=== PATIENT | female | born 1940 | race Caucasian/White ===

== ENCOUNTER → 2024-01-03 16:40 | Outpatient (REF) | payer MEDICARE, OTHER, SELFPAY | LOC: CLAB 16:40 | PROVIDERS: ATTENDING PHYSICIAN Specialist | DX: N39.46 Mixed incontinence (principal) | CPT/HCPCS: 87077; 87086; 87186 ==

== ENCOUNTER → 2024-02-07 11:04 | Outpatient (REF) | payer MEDICARE, OTHER, SELFPAY ==
[2024-02-07 12:14] LABS: Urine Albumin Trace (Neg - Trace); Urine Bilirubin Negative (Negative); Urine Character Clear (Clear); Urine Color Yellow; Urine Glucose Negative (Negative); Urine Ketone Negative (Negative); Urine Leukocyte 1+ (Negative); Urine Nitrite Negative (Negative); Urine Occult Blood Negative (Negative); Urine Specific Gravity 1.015 (<1.030); Urine Urobilinogen Negative (Neg - 1+)
[2024-02-07 12:32] LABS: Urine Red Blood Cell 0-2 /HPF (0-2)
[2024-02-07 12:33] LABS: Urine White Cell 26-30 /HPF (0-5)
[2024-02-07 12:35] LABS: Urine Bacteria Moderate (Negative)
== END ==
LOC: REG 11:04
PROVIDERS: ATTENDING PHYSICIAN Specialist; FAMILY PHYSICIAN Family Medicine
DX: N39.0 Urinary tract infection, site not specified (principal)
CPT/HCPCS: 81003; 81015; 87077; 87086; 87186

== ENCOUNTER 2024-03-07 15:45 | Inpatient (IN) | payer MEDICARE, OTHER, SELFPAY ==
[2024-03-07 09:07] VITALS: BP 100/69
[2024-03-07 09:42] LABS: COVID-19 Antigen Negative (Negative)
--- NOTE | 2024-03-07 11:09 | ED.GENMED ---
History of Present Illness
General
Chief Complaint: Fever
Source: patient
Exam Limitations: none
Time Seen by Provider: 03/07/24 10:42
Travel History
Have you had any contact with someone who has COVID-19?: No
Do you have any symptoms of coronavirus? Fever > 100 degrees, chills, cough, shortness of breath, sore throat, loss of taste or smell, muscle aches, or headache?: No
History of Present Illness
History of Present Illness:
84-year-old female presents with generalized weakness and shaking chills. She noted she felt warm last evening. She notes increased urinary symptoms such as burning conceive. Today she developed rigors that lasted about 1/2-hour. She was
developing weakness as well. She notes a slight cough. She notes no nausea or vomiting. No other at this time
Past History
Past History
ED Past Medical History: Asthma, CAD and Other (Urinary incontinence)
ED Past Surgical History:
Social History
Tobacco: Non-smoker
Alcohol: Occasional
Drug: None
Personal:
Living: alone
Employment: Retired
Family History
Family History: Other
Phy Exam
Physical Exam
Physical Exam:
General: Well-appearing female no acute respiratory distress
HEENT: Normocephalic mucosa moist
Heart: Regular rate and rhythm no murmurs
Lungs: Clear to auscultation bilaterally no wheezing
Abdomen: Soft mildly tender to the left lower quadrant no guarding rebound normal bowel sounds
Extremities: No cyanosis or edema
Skin is warm no rash
Course
Orders/Labs/Results
Orders:
Orders
03/07/24 09:20
Influenza A+B Rapid Molecular Urgent
LOTTIE Source: Nasal Swab
Specimen Description:
03/07/24 09:21
COVID-19 Antigen Urgent
Source: Nasal Swab
03/07/24 10:55
CR Chest - 2 Views Urgent
Comment:
Reason For Exam: fever
03/07/24 10:57
CT Abd/pelvis W Iv Cont Urgent
Comment:
Reason For Exam: left lower abdominal pain, fever
03/07/24 11:49
Basic Metabolic Panel Urgent
Complete Blood Count/With Diff Urgent
03/07/24 12:23
Urinalysis Reflex To Culture Urgent
Date Specimen was Collected: 03/07/24
Time Specimen was Collected: 12:07
Urine Microscopic Reflex Cult Urgent
Urine Culture Urgent
LOTTIE Source: U
Specimen Description:
Date Specimen was Collected: 03/07/24
Time Specimen was Collected: 12:07
03/07/24 14:32
CefTRIAXone [Rocephin] 1,000 mg IV NOW STA
Abnormal Lab Results
03/07/24 03/07/24
11:49 12:23
WBC 13.6 H 10^3/uL
(4.8-10.8)
RBC 4.12 L 10^6/uL
(4.20-5.40)
Hct 35.4 L %
(37.0-47.0)
RDW 14.6 H %
(11.5-14.5)
MPV 12.0 H fL
(7.4-10.4)
Absolute Neuts (auto) 10.3 H 10^3/uL
(1.4-6.5)
Absolute Monos (auto) 1.6 H 10^3/uL
(0.1-0.6)
Neutrophils % 76.3 H %
(42.2-75.2)
Lymphocytes % 10.9 L %
(20.5-51.1)
Monocytes % 12.0 H %
(1.7-9.3)
BUN 20 H mg/dl
(7-17)
Glucose 146 H mg/dl
(70-99)
Ur Occult Blood Reflex 3+ A
(Negative)
Leukocyte Esterase Rfl 2+ A
(Negative)
Urine RBC 3-6 A /HPF
(0-2)
Urine WBC (Reflex) >100 A /HPF
(0-5)
Urine Bacteria (Reflex) Few A
(Negative)
03/07/24 11:49
03/07/24 11:49
Vital Signs
Initial and Last Documented VS:
Initial Vital Signs
Temp Pulse Resp BP Pulse Ox
99.6 F 79 18 100/69 96
03/07/24 09:07 03/07/24 09:07 03/07/24 09:07 03/07/24 09:07 03/07/24 09:07
Last Documented Vital Signs
Temp Pulse Resp BP Pulse Ox
99.6 F 62 16 131/56 97
03/07/24 12:07 03/07/24 12:07 03/07/24 12:07 03/07/24 12:07 03/07/24 12:07
MDM/Problems Addressed
Differential Diagnosis Includes:
Patient describes shaking chills and rigors at home with weakness. COVID and flu negative. Will continue workup with labs chest x-ray urinalysis. She is tender in the left lower abdomen. CT pending
*Critical Care Note
Total Time (30-74mins, 75-104mins- exclusive of procedures): Not Applicable
Update Note
Update Note:
Reviewed workup. Leukocytosis with a white count of 13.4. Urinalysis with greater than 100 white blood cells per hide for powered field with few bacteria. CT of abdomen demonstrates inflammatory changes of the right kidney and renal pelvis
without hydronephrosis. This would suggest possible infection. Patient was recently treated for UTI as an outpatient by the urologist. She has persistent symptoms. Will admit to hospital. Rocephin ordered
ED Attending Note
-
Portions of this chart may have been created with voice recognition software.� Occasional wrong word or��sound alike� substitutions may have occurred due to the inherent limitations of voice recognition software.
Discharge Plan
Departure
Patient Disposition: Admit
Date of Disposition: 03/07/24
Time of Disposition: 14:35
Admit to: Telemetry
Presentation/result/management discussed w/ accepting MD/DO: Hospitalist
Discharge Problem:
Acute UTI
Prescriptions:
No Action
amlodipine 2.5 MG tablet
2.5 mg PO DAILY
aspirin 81 MG tablet,delayed release (DR/EC)
81 mg PO HS
colesevelam [WelChol] 625 MG tablet
1,250 mg PO HS
losartan 25 MG tablet
25 mg PO HS
rosuvastatin [Crestor] 40 MG tablet
40 mg PO DAILY
polyethylene glycol 3350 17 GRAMS powder in packet
17 grams PO DAILYPRN PRN (Reason: constipation)
melatonin 3 MG tablet
3 mg PO HSPRN PRN (Reason: sleep)
nitroglycerin 0.4 MG tablet, sublingual
0.4 mg sublingual [id number] PRN (Reason: chest pain)
albuterol sulfate 1 PUFF HFA aerosol inhaler
1 puff inhalation R Q4HPRN PRN (Reason: sob)
vit C,O-Nj-exoxr-lutein-zeaxan [PreserVision AREDS-2] 1 EACH capsule
1 ea PO BID
meclizine 25 MG tablet
25 mg PO Q8H PRN (Reason: dizziness) Qty: 15 0RF
Eliquis 5 mg tablet
5 mg PO BID Qty: 60 0RF
Referrals:
Nancy Quach MD [Family Provider] -
Interventions
Interventions:
*Risk Screen - Suicide Last Done: 03/07/24 12:08
*General Assessment Last Done: 03/07/24 12:08
*Neglect/Abuse Screening Last Done: 03/07/24 12:08
ED- Fall Risk Assessment Last Done: 03/07/24 12:08
*ED COVID-19 Vaccine History Last Done: 03/07/24 09:07
ED- Neurological Assessment Last Done: 03/07/24 12:08
ED-Skin Assessment Last Done: 03/07/24 12:08
Discharge Date and Time
Print Language: INDONESIAN
[2024-03-07 11:58] LABS: % Basophils 0.4 % (0-2); % Eosinophils 0.1 % (0-6); % Immature Granulocytes 0.3 % (0-0.5); % Lymphocytes 10.9 % (20.5-51.1); % Neutrophils 76.3 % (42.2-75.2); Absolute Basophils 0.1 10^3/uL (0-0.2); Absolute Lymphocytes 1.5 10^3/uL (1.2-3.4); Absolute Monocytes 1.6 10^3/uL (0.1-0.6); Absolute Neutrophils 10.3 10^3/uL (1.4-6.5); Hematocrit 35.4 % (37.0-47.0); Hemoglobin 12.1 g/dL (12.0-16.0); Mean Corp Hgb Conc. 34.2 g/dL (33.0-37.0); Mean Corpuscular Hgb 29.4 pg (27.0-31.0); Mean Corpuscular Volume 85.9 fL (81.0-99.0); Nucleated Red Blood Cells % 0 %; Platelet Count 165 10^3/uL (130-400); Red Blood Cell Count 4.12 10^6/uL (4.20-5.40); Red Cell Dist. Width 14.6 % (11.5-14.5); White Blood Cell Count 13.6 10^3/uL (4.8-10.8)
[2024-03-07 12:07] VITALS: BP 131/56
[2024-03-07 12:19] LABS: Blood Urea Nitrogen 20 mg/dl (7-17); Calcium 9.5 mg/dl (8.4-10.2); Carbon Dioxide 24 mmol/L (22-30); Chloride 105 mmol/L (98-107); Glucose 146 mg/dl (70-99); Sodium 135 mmol/L (135-145); eGFR > 60.00
[2024-03-07 12:43] LABS: Urine Albumin Trace (Neg - Trace); Urine Bilirubin Negative (Negative); Urine Character Clear (Clear); Urine Color Yellow; Urine Glucose Negative (Negative); Urine Ketone Negative (Negative); Urine Leukocyte 2+ (Negative); Urine Nitrite Negative (Negative); Urine Occult Blood 3+ (Negative); Urine Urobilinogen Negative (Neg - 1+)
[2024-03-07 13:16] LABS: Urine Bacteria Few (Negative); Urine Squamous Cell 0-2 /LPF (Few); Urine White Cell >100 /HPF (0-5)
[2024-03-07] MEDS: ROCEPHIN 1000 MG IV (14:48)
--- NOTE | 2024-03-07 15:18 | HPS.HSE ---
Family Physician
-
Family Physician: Nancy Quach
Chief Complaint
-
Rigors and Dysuria
History of Present Illness
Patient is an 84 y/o female with a past medical history of hypertension, hyperlipidemia, coronary artery disease (status post coronary artery bypass graft), paroxysmal atrial fibrillation, chronic urinary incontinence with recent urinary tract
infection who presents for dysuria for the past 2 months and rigors that began today. She admits to a recent urinary tract infection about 2 months ago that was treated with Macrobid (symptoms improved but returned) and then cefdinir after which her
symptoms never fully resolved. She admits to sweats last night and reports an episode of rigors and dry heavies this morning that was so severe that she could not get out of bed to take her temperature. She is unsure if she is experiencing urinary
frequency as she typically experiences chronic urinary incontinence. She denies abdominal pain and vomiting.
Medical History
Past Medical History
Past Medical History: Reports Other
Additional Past Medical History:
Coronary Artery Disease s/p CABG
Paroxysmal Atrial Fibrillation
Essential Hypertension
Hyperlipidemia
Degenerative Disc Disease
Macular Degeneration
Past Surgical History: Reports Other
Additional Past Surgical History:
CABG
Hysterectomy
Appendectomy
Right Carpal Tunnel
Bilateral Trigger Finger
Social History
Tobacco: Non-smoker
Alcohol: None
Family History
Family History: Not pertinent
Allergies / Home Medications
Allergies reflects when Allergies were last updated in [facility].
Home Medications with original date entered in [facility]
Allergy/Medication List:
Allergies
Allergy/AdvReac Type Severity Reaction Status Date / Time
ezetimibe [From Zetia] Allergy Unknown Verified 03/07/24 09:09
penicillin G Allergy Hives- Verified 03/07/24 14:46
tolerated
ceftriaxone
in 2017
Wyubgfi-TYX-LiD Reductase Allergy drowsiness Verified 03/07/24 09:09
Inhibitor
[Ngxvkht-Dli-Ecw Reductase
Inhibitor]
venom-honey bee Allergy SWELLING Verified 03/07/24 09:09
THROAT
vitamin E (d-alpha Allergy Unknown Verified 03/07/24 09:09
tocopherol)
Home Medications
amlodipine 2.5 mg tablet 2.5 mg PO DAILY Blood Pressure 06/13/17
aspirin 81 mg tablet,delayed release 81 mg PO HS Blood Clot Prevention/Tx 06/13/17
losartan 25 mg tablet 25 mg PO HS Blood Pressure 06/13/17
rosuvastatin 40 mg tablet (Crestor) 40 mg PO DAILY High Cholesterol 06/13/17
albuterol sulfate 90 mcg/actuation aerosol inhaler 1 puff inhalation R Q4HPRN PRN sob 07/24/19
melatonin 3 mg tablet 3 mg PO HSPRN PRN sleep 07/24/19
nitroglycerin 0.4 mg sublingual tablet 0.4 mg sublingual [id number] PRN chest pain 07/24/19
polyethylene glycol 3350 17 gram oral powder packet 17 grams PO DAILYPRN PRN constipation 07/24/19
vit C 250 mg-vit E 90 mg-zinc 40 mg-copper 1 gm-ovnjhk-vwhcso capsule (PreserVision AREDS-2) 1 ea PO BID Supplement 07/24/19
apixaban 5 mg tablet (Eliquis) 5 mg PO BID Blood Clot Prevention/Tx 03/07/24
metoprolol succinate 25 mg tablet,extended release 24 hr 12.5 mg PO Daily High blood 03/07/24
omega-3 acid ethyl esters 1 gram capsule (Lovaza) 1 cap PO BID High Cholesterol 03/07/24
Review of Systems
-
A 12 point ROS was completed and negative except as noted: Yes
Constitutional: Reports Fever and Chills
Respiratory: Denies Cough or Trouble Breathing
Abdomen/GI: Reports Abdominal Pain and Nausea
Physical Exam
Vital Signs
Vital Signs
Temp Pulse Resp BP Pulse Ox
99.6 F 62 16 131/56 97
03/07/24 12:07 03/07/24 12:07 03/07/24 12:07 03/07/24 12:07 03/07/24 12:07
Physical Exam
General: Comfortable, Conversant and Chills
HEENT: Moist mucous membranes and Atraumatic
Respiratory: Clear and Non Labored Respirations
Cardiac: S1/S2 and Regular Rhythm
GI: Tender (Mild left lower quadrant without rebound or guarding)
Genito-urinary: Costovertebral angle tend (Right)
Musculoskeletal: No Clubbing, No Cyanosis and No Edema
Skin: Warm and Dry
Neuro: Awake, Alert, Oriented and Nonfocal/grossly intact
Psych: Calm
Laboratory Results
-
03/07/24 11:49
03/07/24 11:49
Laboratory Results
Total Bilirubin Cancelled 03/07/24 11:49
AST Cancelled 03/07/24 11:49
ALT Cancelled 03/07/24 11:49
Alkaline Phosphatase Cancelled 03/07/24 11:49
Data Reviewed
-
CT Scan: Report Reviewed by me
Lab Data: Labs Reviewed by me
Impression/Plan
-
Right Pyelonephritis
-Continue Rocephin
-Continue IVFs
-Await urine and blood cultures
Coronary Artery Disease s/p CABG
-Continue aspirin
Paroxysmal Atrial Fibrillation
-Continue Eliquis for anticoagulation
-Continue metoprolol for rate/rhythm control
Essential Hypertension
-Continue amlodipine and losartan with hold parameters
Dyslipidemia
-Continue Crestor
DVT proph: Eliquis
Code Status: DNR
--- NOTE | 2024-03-07 15:20 | W.PN.UPDATE ---
Addendum entered and electronically signed by Rosa Christian MD 03/07/24 18:01:
patient with complaint of chest pain. she is very tender to touch left upper chest below arm pit and flinches on exam. suspect muscle sprain from prior episode of tremors or vomiting. will order heat pack.
Original Note:
Update Note
Progress Note Update
This update note serves as an addendum to H&P written by Fara Gomez
I saw and examined the patient.
The COMMERCIAL COLLECTIONS DRIVER's note was reviewed and I agree with the note.
Comment:
Ms. Shaylee Walker is a 84 yo woman with hx CAD, HTN, HLD, BPPV presents to the ER with right flank pain and feeling unwell. She was recently treated for UTI as outpatient x 2, initially with Macrobid followed by Cefdinir. Triage vitals stable.
Labs with WBC 13.6, Hg 12.1, Na 135, Cr 0.9, Glucose 146. On exam she appears uncomfortable, mild tremors with rising T (100), lung clear, + CVA tenderness on right.
CT A/P:
IMPRESSION:
1. Inflammatory changes of the right kidney and right renal pelvis as above without hydronephrosis. There is right renal nonobstructive calculus. No ureteral or bladder calculi identified. Differential considerations include infection and recently
passed calculus.
2. No specific findings to explain left-sided pain.
3. Simple fluid attenuation lesion within the pelvis measuring up to 8.7 cm in diameter, larger as compared with prior study. Could be related to left adnexal cysts versus postoperative lymphocele related to prior hysterectomy. As warranted, could
be further evaluated with follow-up pelvic ultrasound. Small interval increase in size compared to 2017 suggests that this has a benign etiology.
4. Mild hepatic fatty infiltration.
5. Cholelithiasis.
Sepsis 2/2 Pyelonephritis
-obtain lactate, blood cultures now
-IV Ceftriaxone
-admit to med/surg
-IVF bolus now and running IVF
-monitor fever curve, WBC
Atrial fibrillation, paroxysmal
-continue PHARMACY BUYER metoprolol, Eliquis
Essential HTN
-resume with hold parameters
DVT PPx Eliquis
[2024-03-07] MEDS: ZOFRAN 4 MG IV (16:06)
[2024-03-07] MEDS: NSS 1000 IV ×2 (16:07→18:44)
[2024-03-07 16:38] LABS: Lactic Acid 2.2 mmol/L (0.7-2.0)
[2024-03-07 17:36] VITALS: BP 129/44
[2024-03-07] MEDS: PEPCID 20 MG IV (17:54)
[2024-03-07] MEDS: NSS (PRESERVATIVE FREE) 8 ML IV (17:55)
[2024-03-07 17:57] LABS: ALT (SGPT) 15 U/L (0-35); AST (SGOT) 26 U/L (14-36); Albumin 3.9 g/dl (3.5-5.0); Alkaline Phosphatase 82 U/L (38-126); Direct Bilirubin 0.3 mg/dl (0.0-0.4); Magnesium 1.8 mg/dl (1.6-2.3); Potassium 4.5 mmol/L (3.5-5.1); Total Bilirubin 0.9 mg/dl (0.2-1.3); Total Protein 6.7 g/dl (6.3-8.2)
[2024-03-07 17:58] LABS: Lactic Acid 1.5 mmol/L (0.7-2.0)
[2024-03-07 18:39] VITALS: BP 123/53
[2024-03-07 18:40] VITALS: BMI 34.4
[2024-03-07] MEDS: TYLENOL 650 MG PO (19:52)
[2024-03-07] MEDS: ELIQUIS 5 MG PO (19:52)
[2024-03-07] MEDS: OCUVITE SOFTGEL 1 CAP PO (19:52)
[2024-03-07 19:53] VITALS: BP 125/50
--- NOTE | 2024-03-07 20:00 | PTCARENOTE ---
Received pt from ED, unable to bear weight due to being fatigued. AAOx3, no complaints of pain. IVF as ordered.
[2024-03-07] MEDS: MELATONIN 3 MG PO (22:00)
[2024-03-07] MEDS: COZAAR PO (22:00)
[2024-03-07] MEDS: ASPIR LOW (ENTERIC COATED) 81 MG PO (22:00)
[2024-03-07 23:55] VITALS: BP 116/52
[2024-03-08] VITALS (8 sets, daily range): BP systolic 118–127; BP diastolic 46–57; PULSE 57; BMI 34.2
[2024-03-08] MEDS: NSS 1000 IV (05:05)
[2024-03-08 07:00] LABS: Blood Urea Nitrogen 23 mg/dl (7-17); Calcium 8.8 mg/dl (8.4-10.2); Carbon Dioxide 20 mmol/L (22-30); Chloride 110 mmol/L (98-107); Estimated Creatinine Clearance 44 ml/min; Glucose 108 mg/dl (70-99); Potassium 4.5 mmol/L (3.5-5.1); Sodium 138 mmol/L (135-145); eGFR 54.87
[2024-03-08 07:56] LABS: Hemoglobin 10.9 g/dL (12.0-16.0); Mean Corp Hgb Conc. 34.1 g/dL (33.0-37.0); Mean Corpuscular Hgb 29.1 pg (27.0-31.0); Mean Corpuscular Volume 85.3 fL (81.0-99.0); Mean Platelet Volume 12.1 fL (7.4-10.4); Platelet Count 143 10^3/uL (130-400); Red Blood Cell Count 3.75 10^6/uL (4.20-5.40); White Blood Cell Count 12.9 10^3/uL (4.8-10.8)
[2024-03-08] MEDS: CRESTOR 40 MG PO (09:37)
[2024-03-08] MEDS: ELIQUIS 5 MG PO ×2 (09:38→20:34)
[2024-03-08] MEDS: OCUVITE SOFTGEL 1 CAP PO ×2 (09:38→20:34)
[2024-03-08] MEDS: NORVASC 2.5 MG PO (09:38)
[2024-03-08] MEDS: TYLENOL 650 MG PO ×2 (10:03→17:35)
--- NOTE | 2024-03-08 10:43 | W.PN.HOSP.TC ---
Today's Communication/Plan
-
see plan
Assessment / Plan
Assessment / Plan
Ms. Shaylee Walker is a 84 yo woman with hx CAD, HTN, HLD, BPPV presents to the ER with right flank pain and feeling unwell. She was recently treated for UTI as outpatient x 2, initially with Macrobid followed by Cefdinir. Triage vitals stable.
Labs with WBC 13.6, Hg 12.1, Na 135, Cr 0.9, Glucose 146. On exam she appears uncomfortable, mild tremors with rising T (100), lung clear, + CVA tenderness on right.
CT A/P:
IMPRESSION:
1. Inflammatory changes of the right kidney and right renal pelvis as above without hydronephrosis. There is right renal nonobstructive calculus. No ureteral or bladder calculi identified. Differential considerations include infection and recently
passed calculus.
2. No specific findings to explain left-sided pain.
3. Simple fluid attenuation lesion within the pelvis measuring up to 8.7 cm in diameter, larger as compared with prior study. Could be related to left adnexal cysts versus postoperative lymphocele related to prior hysterectomy. As warranted, could
be further evaluated with follow-up pelvic ultrasound. Small interval increase in size compared to 2017 suggests that this has a benign etiology.
4. Mild hepatic fatty infiltration.
5. Cholelithiasis.
Sepsis 2/2 Pyelonephritis
Severe sepsis with lactate 2.2
-IV Ceftriaxone q 24 (day 2)
-F/U urine cultures
-IVF - OK to stop after bag runs out
-monitor WBC/fever curve
weakness in setting of sepsis
PT/OT
chest pain MSK
k-pad ordered
Atrial fibrillation, paroxysmal
-continue [employer] metoprolol, Eliquis
Coronary Artery Disease s/p CABG
-Continue aspirin
Essential Hypertension
-Continue amlodipine and losartan with hold parameters
Dyslipidemia
-Continue Crestor
DVT proph: Eliquis
Code Status: patient now wants to be full code
DVT PPx Eliquis
Anticipated Discharge: 24 - 48 hours
Subjective/Interval History
-
Date of Service: March 08, 2024
feeling better
more conversant
pain below left shoulder radiates to neck, better with heat pack not exacerbated by PT
Objective Data
-
Labs:
Laboratory Results
03/08/24 03/08/24
06:25 07:29
WBC Cancelled 12.9 H
Hgb Cancelled 10.9 L
Hct Cancelled 32.0 L
Plt Count Cancelled 143
Sodium 138
Potassium 4.5
Chloride 110 H
Carbon Dioxide 20 L
BUN 23 H
Creatinine 1.0
Glucose 108 H
Calcium 8.8
Vital Signs:
Vital Signs
Temp Pulse Resp BP Pulse Ox
97.9 F 60 18 119/46 95
03/08/24 08:15 03/08/24 09:38 03/08/24 08:15 03/08/24 09:38 03/08/24 08:15
I&O
03/07/24 03/08/24 03/09/24
06:59 06:59 06:59
Intake Total 480 / 480
Output Total 500 / 500
Balance -20 / -20
Review of Systems
-
History Source: Patient
All other systems: Reviewed and negative
Physical Exam
-
General: No Apparent Distress and Conversant
HEENT: PERRLA
Respiratory: Clear to Auscultation; Negative Wheezes
Cardiac: Regular Rhythm and S1/S2
GI: Soft and Nontender
Musculoskeletal: No Edema
Skin: Warm and Dry; Negative Rash
Neuro: AO x 3
Psych: Calm
Data Reviewed
-
Diagnostic Radiology: Report Reviewed by me
Labs: Labs Reviewed by me
--- NOTE | 2024-03-08 11:25 | PTCARENOTE ---
Patient rescinded DNR status. Patient now full code.
--- NOTE | 2024-03-08 12:51 | W.PN.UPDATE ---
Update Note
Progress Note Update
1/ blood cx gram + cocci in clusters. likely contaminant but will repeat blood cx then order one dose IV Vanc - stop if speciation confirms contamination.
--- NOTE | 2024-03-08 12:59 | PHA.VAN.IN ---
Assessment
- Assessment
Renal Function: Appears similar to baseline
Renal Function may be Overestimated due to: age
Concomitant Antimicrobials: ceftriaxone
AUC Dosing Plan
- Dosing Variables
Dosing Weight (kg): 90.4
Dosing CrCl (ml/min): 44
Vd coefficient (L/kg): 0.7
- Empiric Dosing
Initial / Loading Dose: 1250mg
Maintenance Regimen: 1250mg q24h
Estimated AUC (mcg*h/mL): 498
Estimated Peak (mcg*h/mL): 31.6
Estimated Trough (mcg/ml): 12.6
Estimated Half Life (H): 16.9
- Monitoring
No levels ordered at this time: consider at steady state
Pharmacokinetics Vancomycin I
- -
Patient Age: 84
Patient Sex: Female
Vancomycin Day #: 1
Indication: Bacteremia
Requesting Provider: Dr. Christian
Pertinent Antimicrobial Allergies:
pcns=hives, tolerated ceftriaxone
Height / Weight:
Height 5 ft 4 in
Actual Weight 90.407 kg
IBW in k.7
Adjusted BW in k
- Vital Signs / Lab Results
Temp Pulse Resp BP Pulse Ox
97.9 F 63 18 121/50 97
03/08/24 11:58 03/08/24 11:58 03/08/24 11:58 03/08/24 11:58 03/08/24 12:04
Lab Results - Hematology
03/07/24 03/08/24 03/08/24
11:49 06:25 07:29
WBC 13.6 H Cancelled 12.9 H
Lab Results - Chemistry
03/07/24 03/07/24 03/07/24
11:49 16:17 17:24
BUN 20 H
Creatinine 0.9
Estimated Creat Clear
Albumin Cancelled Cancelled 3.9
03/08/24
06:25
BUN 23 H
Creatinine 1.0
Estimated Creat Clear 44
Albumin
03/07/24 03/07/24 03/08/24
16:17 17:24 00:00
Lactic Acid 2.2 H 1.5 Cancelled
Lab Results - Urine
03/07/24
12:23
Urine Nitrite (Reflex) Negative
Leukocyte Esterase Rfl 2+ A
Urine WBC (Reflex) >100 A
Ur Squamous Epith Cells 0-2
Urine Bacteria (Reflex) Few A
Microbiology Results
03/07/24 16:17 Blood Culture - Preliminary
Blood/Venous Positive culture in progress
Gram Stain - Preliminary
03/07/24 12:23 Urine Culture - Preliminary
Urine Escherichia coli
03/07/24 09:20 Influenza Types A & B (TAMAR) - Final
Nasal Swab Negative for Influenza A & B, NAAT
Negative results must be combined with clinical observations
and patient history.
Nucleic Acid Amplification test (NAAT)performed on the
[email or web address] platform.
[2024-03-08] MEDS: STERILE WATER FOR INJECTION 10 ML IV (13:13)
[2024-03-08] MEDS: VANCOCIN 275 MG IV (13:13)
[2024-03-08] MEDS: ROCEPHIN 1000 MG IV (13:13)
--- NOTE | 2024-03-08 14:25 | PTCARENOTE ---
Patient with preliminary positive blood cultures. Dr. Christian notified. Patient given stat dose of Vancomycin as ordered. Afebrile.
--- NOTE | 2024-03-08 15:52 | CM ---
Alert awake oriented patient who lives with his son Lizandro who lives in a 3 steps to enter and bed/bath room are in there vibration .Assisted in all parts of life.Independent with all activities of daily living.He was offered VN he declined need.
No VN hx / No SNF history
Pharmacy [facility]
PCP DR Baldwin
PLAN Home Declined VN
[2024-03-08] MEDS: TOPROL XL 12.5 MG PO (17:30)
[2024-03-08] MEDS: NSS IV (17:57)
[2024-03-08] MEDS: ASPIR LOW (ENTERIC COATED) 81 MG PO (22:06)
[2024-03-08] MEDS: COZAAR 25 MG PO (22:11)
[2024-03-09] VITALS (7 sets, daily range): BP systolic 121–147; BP diastolic 50–98; BMI 34.9
--- NOTE | 2024-03-09 05:00 | PTCARENOTE ---
Pt insisted to have purewick in placed due to being incontinent. RN educated pt she does not meet protocol requirements and can worsen infection. Pt stated she feels anxious and wants a medication to help her anxiety due to the perwick being
removed. RN provided emotional support and educated pt on how to use the call lackey when she needs to be changed and reinforced incontinence protocol. Pt is resting comfortably w/ call lackey within reach
[2024-03-09] MEDS: VANCOCIN 275 MG IV (05:45)
[2024-03-09 07:01] LABS: % Basophils 0.7 % (0-2); % Eosinophils 2.4 % (0-6); % Immature Granulocytes 1.7 % (0-0.5); % Lymphocytes 17.1 % (20.5-51.1); % Monocytes 12.5 % (1.7-9.3); % Neutrophils 65.6 % (42.2-75.2); Absolute Basophils 0.1 10^3/uL (0-0.2); Absolute Eosinophils 0.2 10^3/uL (0-0.7); Absolute Immature Granulocytes 0.2 10^3/uL (0-0.05); Absolute Lymphocytes 1.6 10^3/uL (1.2-3.4); Absolute Monocytes 1.2 10^3/uL (0.1-0.6); Absolute Neutrophils 6.3 10^3/uL (1.4-6.5); Hematocrit 32.2 % (37.0-47.0); Hemoglobin 10.8 g/dL (12.0-16.0); Mean Corp Hgb Conc. 33.5 g/dL (33.0-37.0); Mean Corpuscular Hgb 29.3 pg (27.0-31.0); Mean Corpuscular Volume 87.5 fL (81.0-99.0); Mean Platelet Volume 12.4 fL (7.4-10.4); Nucleated Red Blood Cells % 0 %; Platelet Count 146 10^3/uL (130-400); Red Blood Cell Count 3.68 10^6/uL (4.20-5.40); Red Cell Dist. Width 14.7 % (11.5-14.5); White Blood Cell Count 9.5 10^3/uL (4.8-10.8)
[2024-03-09 07:31] LABS: Blood Urea Nitrogen 17 mg/dl (7-17); Calcium 8.5 mg/dl (8.4-10.2); Carbon Dioxide 22 mmol/L (22-30); Chloride 108 mmol/L (98-107); Estimated Creatinine Clearance 49 ml/min; Glucose 113 mg/dl (70-99); Potassium 4.2 mmol/L (3.5-5.1); Sodium 133 mmol/L (135-145); eGFR > 60.00
[2024-03-09] MEDS: CRESTOR 40 MG PO (08:59)
[2024-03-09] MEDS: ELIQUIS 5 MG PO ×2 (08:59→20:38)
[2024-03-09] MEDS: NORVASC 2.5 MG PO (08:59)
[2024-03-09] MEDS: OCUVITE SOFTGEL 1 CAP PO ×2 (08:59→20:38)
--- NOTE | 2024-03-09 09:25 | PHA.VAN.FU ---
Vancomycin Assessment / Plan
- Assessment
Renal Function: Stable
WBC's are: Trending Down
In the past 24 hrs, patient has been: Afebrile
Concomitant Antimicrobials: CEFTRIAXONE
- Dosing Plan
Continue: 1250MG Q24H
- Monitoring Plan
Peak Level: 03/11 @0900
Trough Level: 03/12 @0530
- Follow Up
Pharmacy will continue to follow.
Vancomycin Follow UP
- -
Patient Age: 84
Patient Sex: Female
Vancomycin Day #: 2
Indication: Bacteremia
Requesting Provider: Dr. Christian
Pertinent Antimicrobial Allergies:
pcns=hives, tolerated ceftriaxone
Height / Weight:
Height 5 ft 4 in
Actual Weight 92.079 kg
IBW in k.7
Adjusted BW in k
- Vital Signs / Lab Results
Temp Pulse Resp BP Pulse Ox
98.6 F 65 18 139/56 92
03/09/24 07:25 03/09/24 08:59 03/09/24 07:25 03/09/24 08:59 03/09/24 07:25
Lab Results - Hematology
03/07/24 03/08/24 03/08/24
11:49 06:25 07:29
WBC 13.6 H Cancelled 12.9 H
03/09/24
05:33
WBC 9.5
Lab Results - Chemistry
03/07/24 03/07/24 03/07/24
11:49 16:17 17:24
BUN 20 H
Creatinine 0.9
Estimated Creat Clear
Albumin Cancelled Cancelled 3.9
03/08/24 03/09/24
06:25 05:33
BUN 23 H 17
Creatinine 1.0 0.9
Estimated Creat Clear 44 49
Albumin
03/07/24 03/07/24 03/08/24
16 17 00:00
Lactic Acid 2.2 H 1.5 Cancelled
Lab Results - Urine
03/07/24
12:23
Urine Nitrite (Reflex) Negative
Leukocyte Esterase Rfl 2+ A
Ur Squamous Epith Cells 0-2
Microbiology Results
03/07/24 12:23 Urine Culture - Final
Urine Escherichia coli
03/07/24 16:17 Blood Culture - Preliminary
Blood/Venous Coagulase neg. staphylococcus
Additional testing on request
Gram Stain - Preliminary
03/07/24 16:17 Blood Culture - Preliminary
Blood/Venous No Growth in 24 hours- Final report to follow
03/07/24 09:20 Influenza Types A & B (TAMAR) - Final
Nasal Swab Negative for Influenza A & B, NAAT
Negative results must be combined with clinical observations
and patient history.
Nucleic Acid Amplification test (NAAT)performed on the
[employer] platform.
--- NOTE | 2024-03-09 10:52 | W.PN.HOSP.TC ---
Addendum entered and electronically signed by Rosa Christian MD 03/09/24 11:07:
coag negative staph in blood - contaminant
stop IV Vanc
Original Note:
Today's Communication/Plan
-
IV Cefazolin
anticipate discharge tomorrow
Assessment / Plan
Assessment / Plan
Ms. Shaylee Walker is a 84 yo woman with hx CAD, HTN, HLD, BPPV presents to the ER with right flank pain and feeling unwell found to have right pyelonephritis improving on IV antibiotics. Prior to admission patient had outpatient treatment UTI
with macrobid followed by Cefdinir without resolution of urinary symptoms.
CT A/P:
IMPRESSION:
1. Inflammatory changes of the right kidney and right renal pelvis as above without hydronephrosis. There is right renal nonobstructive calculus. No ureteral or bladder calculi identified. Differential considerations include infection and recently
passed calculus.
2. No specific findings to explain left-sided pain.
3. Simple fluid attenuation lesion within the pelvis measuring up to 8.7 cm in diameter, larger as compared with prior study. Could be related to left adnexal cysts versus postoperative lymphocele related to prior hysterectomy. As warranted, could
be further evaluated with follow-up pelvic ultrasound. Small interval increase in size compared to 2017 suggests that this has a benign etiology.
4. Mild hepatic fatty infiltration.
5. Cholelithiasis.
Severe sepsis 2/2 Pyelonephritis with lactate 2.2
-lactate cleared
-final urine culture resulted E. Coli sensitive to Cefazolin
-Day 3 antibiotics - narrow to Cefazolin
-consider discharge on fluoroquinolone versus Bactrim given prior outpatient course with cephalosporin and failure to improve. Team to consider touching base with [facility] pharmacy tomorrow.
-monitor WBC/fever curve
weakness in setting of sepsis
PT/OT - HH recommended
chest pain MSK
k-pad ordered
Atrial fibrillation, paroxysmal
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
Coronary Artery Disease s/p CABG
-Continue aspirin
Essential Hypertension
-Continue amlodipine and losartan with hold parameters
Dyslipidemia
-Continue Crestor
DVT proph: Eliquis
Code Status: patient now wants to be full code
DVT PPx Eliquis
Anticipated Discharge: 24 - 48 hours
Subjective/Interval History
-
Date of Service: March 09, 2024
feeling much better today
Objective Data
-
Labs:
Laboratory Results
03/09/24
05:33
WBC 9.5
Hgb 10.8 L
Hct 32.2 L
Plt Count 146
Sodium 133 L
Potassium 4.2
Chloride 108 H
Carbon Dioxide 22
BUN 17
Creatinine 0.9
Glucose 113 H
Calcium 8.5
Vital Signs:
Vital Signs
Temp Pulse Resp BP Pulse Ox
98.6 F 65 18 139/56 92
03/09/24 07:25 03/09/24 08:59 03/09/24 07:25 03/09/24 08:59 03/09/24 08:50
I&O
03/08/24 03/09/24 03/10/24
06:59 06:59 06:59
Intake Total 480 / 480 1130 / 1130
Output Total 500 / 500 1000 / 1000
Balance -20 / -20 130 / 130
Review of Systems
-
History Source: Patient
All other systems: Reviewed and negative
Physical Exam
-
General: No Apparent Distress and Conversant
HEENT: PERRLA
Respiratory: Clear to Auscultation; Negative Wheezes
Cardiac: Regular Rhythm and S1/S2
GI: Soft and Nontender
Musculoskeletal: No Edema
Skin: Warm and Dry; Negative Rash
Neuro: AO x 3
Psych: Calm
Data Reviewed
-
Diagnostic Radiology: Report Reviewed by me
Labs: Labs Reviewed by me
[2024-03-09] MEDS: ANCEF 5 IV (17:16)
[2024-03-09] MEDS: TOPROL XL 12.5 MG PO (17:16)
[2024-03-09] MEDS: ASPIR LOW (ENTERIC COATED) 81 MG PO (21:28)
[2024-03-09] MEDS: COZAAR 25 MG PO (21:41)
[2024-03-10] VITALS (7 sets, daily range): BP systolic 118–156; BP diastolic 48–77; PULSE 65; O2SAT 96; BMI 34.9
[2024-03-10] MEDS: ANCEF 5 IV ×4 (01:23→23:50)
[2024-03-10] MEDS: CRESTOR 40 MG PO (07:52)
[2024-03-10] MEDS: ELIQUIS 5 MG PO ×2 (07:52→20:04)
[2024-03-10] MEDS: NORVASC 2.5 MG PO (07:52)
[2024-03-10] MEDS: OCUVITE SOFTGEL 1 CAP PO ×2 (07:52→20:03)
[2024-03-10] MEDS: FLUSH (NSS) 1 FLUSH IV ×2 (07:52→16:17)
--- NOTE | 2024-03-10 08:19 | W.PN.HOSP.TC ---
Today's Communication/Plan
-
see bold
Assessment / Plan
Assessment / Plan
Ms. Shaylee Walker is a 84 yo woman with hx CAD, HTN, HLD, BPPV presents to the ER with right flank pain and feeling unwell found to have right pyelonephritis improving on IV antibiotics. Prior to admission patient had outpatient treatment UTI
with macrobid followed by Cefdinir without resolution of urinary symptoms.
CT A/P:
IMPRESSION:
1. Inflammatory changes of the right kidney and right renal pelvis as above without hydronephrosis. There is right renal nonobstructive calculus. No ureteral or bladder calculi identified. Differential considerations include infection and recently
passed calculus.
2. No specific findings to explain left-sided pain.
3. Simple fluid attenuation lesion within the pelvis measuring up to 8.7 cm in diameter, larger as compared with prior study. Could be related to left adnexal cysts versus postoperative lymphocele related to prior hysterectomy. As warranted, could
be further evaluated with follow-up pelvic ultrasound. Small interval increase in size compared to 2017 suggests that this has a benign etiology.
4. Mild hepatic fatty infiltration.
5. Cholelithiasis.
#Severe sepsis 2/2 Right pyelonephritis with lactate 2.2
-Patient treated with Macrobid followed by cefdinir prior to admission. Lactate cleared
-final urine culture resulted E. Coli sensitive to Cefazolin
-Day 4 antibiotics - narrow to Cefazolin
-monitor WBC/fever curve
#Weakness in setting of sepsis
PT/OT - HH recommended
#Chest pain
Possibly secondary to musculoskeletal versus asthma
Troponin negative, EKG nonischemic
k-pad ordered, added home albuterol
#Contaminated blood cultures
No need for vancomycin, repeat blood cultures negative
#Atrial fibrillation, paroxysmal
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
#Coronary Artery Disease s/p CABG
-Continue aspirin
Essential Hypertension
-Continue amlodipine and losartan with hold parameters
Dyslipidemia
-Continue Crestor
DVT proph: Eliquis
Code Status: patient now wants to be full code
Total time spent to see the patient on the floor, examine the patient, review data and lab results, discuss treatment plan with patient, nursing staff around 51 minutes.
Physical Exam
General: Obese, no acute distress
HEENT: Normocephalic, Atraumatic, EOMI, MMM
Respiratory: Clear to Auscultation bilaterally
Cardiac: Normal S1/S2, Regular Rate and Rhythm
GI: Soft, Nontender, Nondistended, Normal Bowel Sounds
Extremities: No Clubbing, Cyanosis, or Edema
Neuro: Nonfocal/Grossly Intact
Psych: Calm, Cooperative
Derm: No Visible lesions
Anticipated Discharge: Within 24 hours
Subjective/Interval History
-
Date of Service: March 10, 2024
Patient reports transient chest tightness yesterday, resolved spontaneously. She does have a history of asthma. No chest pain currently. She does have her left sided back pain. No fever, no vomiting.
Objective Data
-
Vital Signs:
Vital Signs
Temp Pulse Resp BP Pulse Ox
98.2 F 58 20 139/61 94
03/10/24 07:25 03/10/24 07:52 03/10/24 07:25 03/10/24 07:52 03/10/24 07:25
I&O
03/09/24 03/10/24 03/11/24
06:59 06:59 06:59
Intake Total 1130 / 1130 1020 / 1020
Output Total 1000 / 1000
Balance 130 / 130 1020 / 1020
[2024-03-10] MEDS: ProAIR HFA INHALER INH (09:53)
[2024-03-10] MEDS: ProAIR HFA INHALER 2 PUFF INH ×3 (11:10→19:34)
[2024-03-10 11:52] LABS: Troponin I < 0.012 ng/ml
--- NOTE | 2024-03-10 15:55 | VNURNOTE ---
Home Health Liaison met with patient at 1500 to discuss [facility] nurse/therapy, visits, schedule and homebound status. Patient is agreeable and understands that visits at home will be 2-3 x per week to assess and teach medical management.
[facility] brochure provided with contact information. Patient is aware that [facility] will contact her for start of care in 1-2 days after discharge from .
[facility] referral completed in Care Port.
[2024-03-10] MEDS: TOPROL XL 12.5 MG PO (17:28)
[2024-03-10] MEDS: ASPIR LOW (ENTERIC COATED) 81 MG PO (20:04)
[2024-03-10] MEDS: COZAAR 25 MG PO (23:46)
[2024-03-11 03:21] VITALS: BP 117/54
[2024-03-11 05:48] LABS: Hemoglobin 10.6 g/dL (12.0-16.0); Mean Corp Hgb Conc. 34.2 g/dL (33.0-37.0); Mean Corpuscular Hgb 28.9 pg (27.0-31.0); Mean Corpuscular Volume 84.5 fL (81.0-99.0); Mean Platelet Volume 11.5 fL (7.4-10.4); Platelet Count 193 10^3/uL (130-400); Red Blood Cell Count 3.67 10^6/uL (4.20-5.40); Red Cell Dist. Width 14.5 % (11.5-14.5); White Blood Cell Count 8.4 10^3/uL (4.8-10.8)
[2024-03-11 06:00] VITALS: BMI 34.5
[2024-03-11 06:15] LABS: Blood Urea Nitrogen 14 mg/dl (7-17); Carbon Dioxide 25 mmol/L (22-30); Chloride 108 mmol/L (98-107); Estimated Creatinine Clearance 56 ml/min; Glucose 139 mg/dl (70-99); Magnesium 1.9 mg/dl (1.6-2.3); Phosphorus 3.7 mg/dl (2.5-4.5); Sodium 135 mmol/L (135-145); eGFR > 60.00
[2024-03-11] MEDS: CRESTOR 40 MG PO (07:34)
[2024-03-11] MEDS: OCUVITE SOFTGEL 1 CAP PO (07:34)
[2024-03-11] MEDS: ELIQUIS 5 MG PO (07:34)
[2024-03-11] MEDS: NORVASC 2.5 MG PO (07:35)
[2024-03-11] MEDS: ANCEF 5 IV (07:35)
[2024-03-11] MEDS: ProAIR HFA INHALER 2 PUFF INH ×2 (07:43→11:31)
[2024-03-11 07:55] VITALS: BP 153/75
--- NOTE | 2024-03-11 08:30 | W.PN.HOSP.TC ---
Today's Communication/Plan
-
Stable for discharge today
Assessment / Plan
Assessment / Plan
Ms. Shaylee Walker is a 84 yo woman with hx CAD, HTN, HLD, BPPV presents to the ER with right flank pain and feeling unwell found to have right pyelonephritis improving on IV antibiotics. Prior to admission patient had outpatient treatment UTI
with macrobid followed by Cefdinir without resolution of urinary symptoms.
CT A/P:
IMPRESSION:
1. Inflammatory changes of the right kidney and right renal pelvis as above without hydronephrosis. There is right renal nonobstructive calculus. No ureteral or bladder calculi identified. Differential considerations include infection and recently
passed calculus.
2. No specific findings to explain left-sided pain.
3. Simple fluid attenuation lesion within the pelvis measuring up to 8.7 cm in diameter, larger as compared with prior study. Could be related to left adnexal cysts versus postoperative lymphocele related to prior hysterectomy. As warranted, could
be further evaluated with follow-up pelvic ultrasound. Small interval increase in size compared to 2017 suggests that this has a benign etiology.
4. Mild hepatic fatty infiltration.
5. Cholelithiasis.
#Severe sepsis 2/2 Acute right pyelonephritis with lactate 2.2
-Patient treated with Macrobid followed by cefdinir prior to admission. Lactate cleared
-Final urine culture resulted E. Coli sensitive to Cefazolin and fluoroquinolones
-Status post 4 days of IV Ancef, will discharge on levofloxacin 500 mg for 10 more days
-Follow-up with PCP in 1 week
#Weakness in setting of sepsis
PT/OT - HH recommended - pt declines.
#Chest pain - resolved
Possibly secondary to musculoskeletal versus asthma
Troponin negative, EKG nonischemic
k-pad ordered, added home albuterol
#Contaminated blood cultures
No need for vancomycin, repeat blood cultures negative
#Atrial fibrillation, paroxysmal
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
#Coronary Artery Disease s/p CABG
-Continue aspirin
Essential Hypertension
-Continue amlodipine and losartan with hold parameters
Dyslipidemia
-Continue Crestor
DVT proph: Eliquis
Code Status: patient now wants to be full code
Physical Exam
General: Obese, no acute distress
HEENT: Normocephalic, Atraumatic, EOMI, MMM
Respiratory: Clear to Auscultation bilaterally
Cardiac: Normal S1/S2, Regular Rate and Rhythm
GI: Soft, Nontender, Nondistended, Normal Bowel Sounds
Extremities: No Clubbing, Cyanosis, or Edema
Neuro: Nonfocal/Grossly Intact
Psych: Calm, Cooperative
Derm: No Visible lesions
Anticipated Discharge: Today
Subjective/Interval History
-
Date of Service: March 11, 2024
Chest pain resolved, left back pain resolved. No dysuria, no fever. Feels well, eager for discharge today.
Objective Data
-
Labs:
Laboratory Results
03/11/24
05:32
WBC 8.4
Hgb 10.6 L
Hct 31.0 L
Plt Count 193 D
Sodium 135
Potassium 4.0
Chloride 108 H
Carbon Dioxide 25
BUN 14
Creatinine 0.8
Glucose 139 H
Calcium 9.0
Vital Signs:
Vital Signs
Temp Pulse Resp BP Pulse Ox
98.7 F 59 17 153/75 95
03/11/24 03:21 03/11/24 07:46 03/11/24 07:46 03/11/24 07:35 03/11/24 07:46
I&O
03/10/24 03/11/24 03/12/24
06:59 06:59 06:59
Intake Total 1020 / 1020 1020 / 1020
Balance 1020 / 1020 1020 / 1020
--- NOTE | 2024-03-11 09:11 | PN.CDI ---
CDI
- -
CDI:
Physician Documentation Request
Admit Date: 03/07/24 15:45
Dear Doctor Do,
Please review the following and provide your response in the progress notes.
Clinical Indicators: Pt admitted with Severe sepsis 2/[address]/AP Impression: Inflammatory changes of the right kidney and right renal pelvis as above without hydronephrosis. There is right renal nonobstructive calculus. No ureteral or bladder calculi identified. Differential considerations include
infection and recently passed calculus.
Clarify which of the following accurately represents the acuity of the Pyelonephritis. Possible options might include:
____ Acute Pyelonephritis
Acute on Chronic Pyelonephritis
Chronic stable condition Pyelonephritis
____ Other
Use of terms such as suspected, likely, concern for, or probable (associated with a specific diagnosis that is being evaluated, monitored, or treated as if it exists) are acceptable and can be coded in the inpatient setting, when documented at the
time of discharge.
Thank you,
Luh Dexter RN, BSN
CDI Specialist
Please use your independent medical judgment in providing your response.
--- NOTE | 2024-03-11 10:48 | W.DCSUMMARY ---
Discharge Summary
Discharge Data
Date of Admission: 03/07/24
Date of Discharge: 03/11/24
-
Pending Results: No
Hospital Course
Discharge diagnosis:
Acute sepsis, present upon admission, resolved
Acute right-sided pyelonephritis
Weakness
Chest pain, musculoskeletal versus asthmatic in origin
Contaminated blood cultures
Cholelithiasis
Fatty liver
Paroxysmal atrial fibrillation
Benign essential hypertension
Hyperlipidemia
History of coronary artery disease status post surgery
Possible left adnexal cyst versus postoperative lymphocele related to prior hysterectomy
CT abdomen and pelvis:
1. Inflammatory changes of the right kidney and right renal pelvis as above without hydronephrosis. There is right renal nonobstructive calculus. No ureteral or bladder calculi identified. Differential considerations include infection and recently
passed calculus.
2. No specific findings to explain left-sided pain.
3. Simple fluid attenuation lesion within the pelvis measuring up to 8.7 cm in diameter, larger as compared with prior study. Could be related to left adnexal cysts versus postoperative lymphocele related to prior hysterectomy. As warranted, could
be further evaluated with follow-up pelvic ultrasound. Small interval increase in size compared to 2017 suggests that this has a benign etiology.
4. Mild hepatic fatty infiltration.
5. Cholelithiasis.
Hospital course:
84-year-old female with a past medical history of CAD status post CABG, hypertension, hyperlipidemia, paroxysmal atrial fibrillation on Eliquis, chronic urinary incontinence with recent urinary tract infection who was admitted for sepsis secondary
to right-sided pyelonephritis. Patient was treated with Macrobid followed by cefdinir, however she still had symptoms.
She was treated with IV Rocephin, IV fluids. She had an elevated lactic acid, that resolved. Her leukocytosis resolved.
Patient's urine culture grew out E. coli, sensitive to fluoroquinolones, Ancef, Bactrim, and Macrobid. She was transitioned from IV Rocephin to IV Ancef. Since patient had failed Macrobid and cefdinir prior to admission, she will be discharged on
Levaquin 500 mg daily for an additional 10 days to complete a 14-day course.
Patient had contaminated blood cultures, no further treatment was needed for that.
Patient also had transient chest tightness. This resolved with resuming her home bronchodilators. Suspect this is either asthmatic in origin versus musculoskeletal.
Patient was seen by PT, who recommended home PT. She declined.
She is medically stable for discharge. She needs to complete her antibiotics as above, and follow-up with her primary care doctor in 1 week.
Disposition: Home self-care
Discharge planning: Required 33 minutes
Discharge Plan
-
Patient Disposition: Home with Home Care
Discharge Diagnosis/Procedures: Acute sepsis secondary to right-sided pyelonephritis, weakness, chest pain, paroxysmal atrial fibrillation, coronary artery disease
Condition: Good
Diet: Low Cholesterol
Activity: As tolerated
Driving Restrictions: As prior to admission
Activity Restrictions/Additional Instructions:
Please rest, drink plenty of fluids. Take your antibiotics as directed.
Follow-up with your primary care doctor in 1 week.
Instructions: Urinary Tract Infection, Adult (DC), Kidney Infection (DC)
Referrals:
Nancy Quach MD [Family Provider] - in one week
Prescriptions:
New
levofloxacin 500 mg tablet
500 mg PO DAILY Qty: 10 0RF
Continued
amlodipine 2.5 MG tablet
2.5 mg PO DAILY
aspirin 81 MG tablet,delayed release (DR/EC)
81 mg PO HS
losartan 25 MG tablet
25 mg PO HS
rosuvastatin [Crestor] 40 MG tablet
40 mg PO DAILY
polyethylene glycol 3350 17 GRAMS powder in packet
17 grams PO DAILYPRN PRN (Reason: constipation)
melatonin 3 MG tablet
3 mg PO HSPRN PRN (Reason: sleep)
nitroglycerin 0.4 MG tablet, sublingual
0.4 mg sublingual [id number] PRN (Reason: chest pain)
albuterol sulfate 1 PUFF HFA aerosol inhaler
1 puff inhalation R Q4HPRN PRN (Reason: sob)
PreserVision AREDS-2 1 EACH capsule
1 ea PO BID
metoprolol succinate 25 mg tablet extended release 24 hr
12.5 mg PO Daily
Eliquis 5 mg tablet
5 mg PO BID
omega-3 acid ethyl esters [Lovaza] 1 gram Capsule
1 cap PO BID
Discharge Orders:
Discharge Patient (As Directed); Ordered 03/11/24
Ordered By: Олег Hopson
Discharge Date and Time
Discharge Date/Time: 03/11/24 13:11
Print Language: PERSIAN
--- NOTE | 2024-03-11 11:17 | CM ---
entered order for discharge.
Pt requested [facility] . Nieves set up [facility] As per care port pt accepted.
Pt agrees with discharge.
Lizandro her son will drive her home today.
PLAN Home with [facility]
[2024-03-11] MEDS: LEVAQUIN 500 MG PO (11:19)
[2024-03-11 11:55] VITALS: BP 139/55
== END 2024-03-11 13:11 | disposition home health service (06) | DRG 872 ==
LOC: 4 EAST ACU 15:45
PROVIDERS: Emergency Medicine; Physician Assistant; Physician Assistant Medical; ADMITTING PHYSICIAN Student in an Organized Health Care Education/Training Program; ATTENDING PHYSICIAN Family Medicine; EMERGENCY PHYSICIAN Emergency Medicine; FAMILY PHYSICIAN Family Medicine
DX: A41.51 Sepsis due to Escherichia coli [E. coli] (principal); I48.20 Chronic atrial fibrillation, unspecified; N10 Acute pyelonephritis; I25.10 Atherosclerotic heart disease of native coronary artery without angina pectoris; R65.20 Severe sepsis without septic shock; R32 Unspecified urinary incontinence; J45.909 Unspecified asthma, uncomplicated; I10 Essential (primary) hypertension; E78.5 Hyperlipidemia, unspecified; I48.0 Paroxysmal atrial fibrillation; H35.30 Unspecified macular degeneration; K76.0 Fatty (change of) liver, not elsewhere classified; K80.20 Calculus of gallbladder without cholecystitis without obstruction; H81.10 Benign paroxysmal vertigo, unspecified ear; B95.7 Other staphylococcus as the cause of diseases classified elsewhere; Z66 Do not resuscitate; Z87.440 Personal history of urinary (tract) infections; Z11.52 Encounter for screening for COVID-19; Z79.01 Long term (current) use of anticoagulants; Z95.1 Presence of aortocoronary bypass graft; Z88.0 Allergy status to penicillin; Z88.8 Allergy status to other drugs, medicaments and biological substances; Z91.030 Bee allergy status; R07.9 Chest pain, unspecified
CPT/HCPCS: 71046; 74177; 80048; 80076; 81003; 81015; 83605; 83735; 84100; 84132; 84484; 85025; 85027; 87040; 87071; 87086; 87150; 87186; 87205; 87502; 87811; 93005; 94640; 96361; 96374; 97116; 97161; 97162; 97166; 99285; Q9967

== ENCOUNTER → 2024-03-12 15:06 | Outpatient (REF) | payer MEDICARE, OTHER, SELFPAY | LOC: RAD 15:06 | PROVIDERS: ATTENDING PHYSICIAN Family Medicine | DX: R47.89 Other speech disturbances (principal); R47.1 Dysarthria and anarthria | CPT/HCPCS: 70450 ==

== ENCOUNTER → 2024-03-14 16:26 | Outpatient (REF) | payer MEDICARE, OTHER, SELFPAY | LOC: MRI 16:26 | PROVIDERS: ATTENDING PHYSICIAN Family Medicine; FAMILY PHYSICIAN Family Medicine | DX: R47.89 Other speech disturbances (principal); R47.1 Dysarthria and anarthria | CPT/HCPCS: 70551 ==

== ENCOUNTER → 2024-03-27 10:20 | Outpatient (REF) | payer MEDICARE, OTHER, SELFPAY ==
[2024-03-27 11:18] LABS: % Basophils 1.1 % (0-2); % Immature Granulocytes 0.1 % (0-0.5); % Lymphocytes 29.5 % (20.5-51.1); % Neutrophils 57.3 % (42.2-75.2); Absolute Basophils 0.1 10^3/uL (0-0.2); Absolute Eosinophils 0.2 10^3/uL (0-0.7); Absolute Lymphocytes 2.4 10^3/uL (1.2-3.4); Absolute Monocytes 0.8 10^3/uL (0.1-0.6); Absolute Neutrophils 4.6 10^3/uL (1.4-6.5); Hematocrit 37.7 % (37.0-47.0); Hemoglobin 12.6 g/dL (12.0-16.0); Mean Corp Hgb Conc. 33.4 g/dL (33.0-37.0); Mean Corpuscular Hgb 28.6 pg (27.0-31.0); Mean Corpuscular Volume 85.5 fL (81.0-99.0); Nucleated Red Blood Cells % 0 %; Platelet Count 215 10^3/uL (130-400); Red Blood Cell Count 4.41 10^6/uL (4.20-5.40); Red Cell Dist. Width 14.6 % (11.5-14.5)
[2024-03-27 12:35] LABS: ALT (SGPT) 21 U/L (0-35); AST (SGOT) 33 U/L (14-36); Albumin 4.4 g/dl (3.5-5.0); Alkaline Phosphatase 78 U/L (38-126); Blood Urea Nitrogen 21 mg/dl (7-17); Calcium 9.8 mg/dl (8.4-10.2); Carbon Dioxide 26 mmol/L (22-30); Chloride 104 mmol/L (98-107); Glucose 120 mg/dl (70-99); Potassium 5.1 mmol/L (3.5-5.1); Sodium 135 mmol/L (135-145); Total Bilirubin 0.6 mg/dl (0.2-1.3); Total Protein 7.2 g/dl (6.3-8.2); eGFR 54.87
== END ==
LOC: REG 10:20
PROVIDERS: ATTENDING PHYSICIAN Family Medicine
DX: I10 Essential (primary) hypertension (principal); I25.10 Atherosclerotic heart disease of native coronary artery without angina pectoris; E78.5 Hyperlipidemia, unspecified; D64.9 Anemia, unspecified; R42 Dizziness and giddiness; R53.83 Other fatigue; J45.909 Unspecified asthma, uncomplicated
CPT/HCPCS: 36415; 80053; 85025

== ENCOUNTER → 2024-04-04 17:05 | Outpatient (REF) | payer MEDICARE, OTHER, SELFPAY ==
[2024-04-04 18:24] LABS: Urine Albumin Negative (Neg - Trace); Urine Bilirubin Negative (Negative); Urine Character Clear (Clear); Urine Color Yellow; Urine Glucose Negative (Negative); Urine Ketone Negative (Negative); Urine Leukocyte Negative (Negative); Urine Nitrite Negative (Negative); Urine Occult Blood Negative (Negative); Urine Specific Gravity 1.015 (<1.030); Urine Urobilinogen Negative (Neg - 1+)
== END ==
LOC: CLAB 17:05
PROVIDERS: ATTENDING PHYSICIAN Obstetrics & Gynecology
DX: N39.0 Urinary tract infection, site not specified (principal)
CPT/HCPCS: 81003; 87086

== ENCOUNTER → 2024-06-20 10:19 | Outpatient (REF) | payer MEDICARE, OTHER, SELFPAY ==
[2024-06-20 11:24] LABS: % Basophils 1.1 % (0-2); % Eosinophils 1.6 % (0-6); % Immature Granulocytes 0.3 % (0-0.5); % Lymphocytes 27.2 % (20.5-51.1); % Monocytes 8.7 % (1.7-9.3); % Neutrophils 61.1 % (42.2-75.2); Absolute Basophils 0.1 10^3/uL (0-0.2); Absolute Eosinophils 0.1 10^3/uL (0-0.7); Absolute Lymphocytes 1.9 10^3/uL (1.2-3.4); Absolute Monocytes 0.6 10^3/uL (0.1-0.6); Absolute Neutrophils 4.3 10^3/uL (1.4-6.5); Hematocrit 38.6 % (37.0-47.0); Hemoglobin 13.3 g/dL (12.0-16.0); Mean Corp Hgb Conc. 34.5 g/dL (33.0-37.0); Mean Corpuscular Hgb 29.6 pg (27.0-31.0); Mean Corpuscular Volume 85.8 fL (81.0-99.0); Mean Platelet Volume 12.1 fL (7.4-10.4); Nucleated Red Blood Cells % 0 %; Platelet Count 189 10^3/uL (130-400); Red Cell Dist. Width 14.3 % (11.5-14.5)
[2024-06-20 11:40] LABS: ALT (SGPT) 18 U/L (0-35); AST (SGOT) 29 U/L (14-36); Albumin 4.5 g/dl (3.5-5.0); Alkaline Phosphatase 72 U/L (38-126); Blood Urea Nitrogen 20 mg/dl (7-17); Calcium 9.7 mg/dl (8.4-10.2); Carbon Dioxide 22 mmol/L (22-30); Chloride 109 mmol/L (98-107); Glucose 131 mg/dl (70-99); Potassium 4.3 mmol/L (3.5-5.1); Sodium 139 mmol/L (135-145); Total Bilirubin 0.6 mg/dl (0.2-1.3); Total Protein 7.1 g/dl (6.3-8.2); eGFR > 60.00
== END ==
LOC: REG 10:19
PROVIDERS: ATTENDING PHYSICIAN Nurse Practitioner Family; REFERRING PHYSICIAN Internal Medicine Cardiovascular Disease
DX: R19.7 Diarrhea, unspecified (principal)
CPT/HCPCS: 36415; 80053; 85025

== ENCOUNTER → 2024-09-08 10:48 | Outpatient (REF) | payer MEDICARE, OTHER, SELFPAY ==
[2024-09-08 14:06] LABS: HDL Cholesterol 100 mg/dl; LDL Cholesterol, Calculated 45 mg/dl; Total Cholesterol 161 mg/dl (50-199); Triglyceride 83 mg/dl (10-149); Very Low Density Lipoprotein 16 mg/dl (0-30)
== END ==
LOC: RCS 10:48
PROVIDERS: ATTENDING PHYSICIAN Internal Medicine Cardiovascular Disease; FAMILY PHYSICIAN Family Medicine
DX: I25.10 Atherosclerotic heart disease of native coronary artery without angina pectoris (principal); I34.0 Nonrheumatic mitral (valve) insufficiency; R06.02 Shortness of breath
CPT/HCPCS: 36415; 80061; 93306

== ENCOUNTER 2024-12-11 16:49 | Emergency (ER) | payer MEDICARE, OTHER, SELFPAY ==
[2024-12-11 17:07] VITALS: BP 172/60
[2024-12-11 18:27] VITALS: BMI 40.0
[2024-12-11 18:29] VITALS: BP 159/63
[2024-12-11] MEDS: TYLENOL 650 MG PO (20:07)
--- NOTE | 2024-12-11 20:54 | ED.GENMED ---
History of Present Illness
General
Chief Complaint: Fall
Source: patient
Time Seen by Provider: 12/11/24 17:52
History of Present Illness
History of Present Illness:
84-year-old female with past medical history of CAD, hypertension, hyperlipidemia presenting to the emergency department with family for evaluation after she had an accidental fall at home earlier today while she was walking to the bathroom stating
that she had to go real bad and did not grab her walker to help her go when she excellently tripped and fell striking her head onto the ground and injuring her right knee. Patient is on Eliquis due to history of atrial fibrillation. Patient was
actually at her primary care provider earlier today for a well visit and states she had a very good appointment and is in her usual state of health otherwise. Patient has no other concerns at this time.
Past History
Past History
ED Past Medical History: Asthma, CAD, HTN, Hypercholesterolemia, Valvular disease and Other (Urinary incontinence)
ED Past Surgical History: Appendectomy, Cardiac, , Tonsilectomy and Other
Social History
Tobacco: Non-smoker
Alcohol: Occasional
Drug: None
Personal:
Living: alone
Employment: Retired
Family History
Family History: Other
Review of Systems
Review of Systems
All Other Systems: ROS reviewed and negative except as documented in HPI and ROS
Phy Exam
Physical Exam
Physical Exam:
GENERAL: Alert , in no apparent distress
HEAD: Moderate contusion over the right frontal scalp
EYE: conjunctiva clear, pupils 3 mm bilateral, EOMI
NECK: Supple
ENT: o/p clr, mmm.
CARDIAC: Regular rate and rhythm
LUNGS: Clear breath sounds bilaterally, no acute respiratory distress, no wheezes/rales/rhonchi
NEUROLOGICAL: Alert and oriented, ambulates with steady gait
SKIN: Warm and dry, skin intact.
MUSCULOSKELETAL: well perfused. Contusion over the right proximal tibia extending distally to the mid third with tenderness. Patient allows for full range of motion of both extremities.
PSYCH: Normal and appropriate interaction.
Scores
Heart Failure Risk
Heart Failure Risk Score: Not Applicable
Heart Score for Chest Pain Patients
STEMI patient?: Not applicable
Withdrawal Assessment of Alcohol
Withdrawal Assessment Completed?: Not applicable
Course
Orders/Labs/Results
Orders:
Orders
12/11/24 16:51
CT Head W/o Iv Contrast Urgent
Comment:
Reason For Exam: fall hit head on bld thinner
12/11/24 19:19
CR Knee- Right 4 Or More View* Urgent
Comment:
Reason For Exam: fall
CR Leg Tibia/fibula Right 2 Vw Urgent
Comment:
Reason For Exam: fall, pain
12/11/24 20:05
Acetaminophen [Tylenol] 650 mg .ROUTE .STK-MED ONE
12/11/24 20:06
Acetaminophen [Tylenol] 650 mg PO NOW STA
Vital Signs
Initial and Last Documented VS:
Initial Vital Signs
Temp Pulse Resp BP Pulse Ox
98.4 F 61 16 172/60 98
12/11/24 17:07 12/11/24 17:07 12/11/24 17:07 12/11/24 17:07 12/11/24 17:07
Last Documented Vital Signs
Temp Pulse Resp BP Pulse Ox
98.4 F 60 18 159/63 99
12/11/24 17:07 12/11/24 18:29 12/11/24 18:29 12/11/24 18:29 12/11/24 18:29
MDM/Problems Addressed
Differential Diagnosis Includes:
Accidental trip and fall, intracranial bleeding, calvarial fracture, knee contusion, tibia/patellar injury/fracture
MDM/Problems Addressed:
84-year-old female presenting to the emergency department for evaluation following an accidental fall. Obvious right-sided facial/head injury. CT of the head had been ordered upon arrival. Will add on x-ray of the knee and right tib-fib to
evaluate for any further injury. Tylenol ordered for pain. Disposition pending.
*Radiology
Radiology exam reviewed: preliminary read by ED provider (No acute fracture on x-ray) and radiology read reviewed
*Pulse Oximetry
Patient hypoxic: no
*Critical Care Note
Total Time (30-74mins, 75-104mins- exclusive of procedures): Not Applicable
Patient Management
Escalation/DeEscalation of care consider admission/obs:
Patient's imaging is unremarkable for any acute emergent pathologies. She is stable for discharge home and outpatient management. Tylenol as needed for pain and advised to keep ice over the affected areas. Aware of return precautions to the ER.
ED Attending Note
-
Portions of this chart may have been created with voice recognition software.� Occasional wrong word or��sound alike� substitutions may have occurred due to the inherent limitations of voice recognition software.
Discharge Plan
Departure
Patient Disposition: Home (Routine Discharge)
Date of Disposition: 12/11/24
Time of Disposition: 20:54
Patient with high blood pressure during this ER visit?: Yes
Discharge Problem:
Accidental fall, Contusion of scalp, Contusion of right knee
Instructions: Preventing falls in adults
Prescriptions:
No Action
amlodipine 2.5 MG tablet
2.5 mg PO DAILY
aspirin 81 MG tablet,delayed release (DR/EC)
81 mg PO HS
losartan 25 MG tablet
25 mg PO HS
rosuvastatin [Crestor] 40 MG tablet
40 mg PO DAILY
polyethylene glycol 3350 17 GRAMS powder in packet
17 grams PO DAILYPRN PRN (Reason: constipation)
melatonin 3 MG tablet
3 mg PO HSPRN PRN (Reason: sleep)
nitroglycerin 0.4 MG tablet, sublingual
0.4 mg sublingual [id number] PRN (Reason: chest pain)
albuterol sulfate 1 PUFF HFA aerosol inhaler
1 puff inhalation R Q4HPRN PRN (Reason: sob)
PreserVision AREDS-2 1 EACH capsule
1 ea PO BID
metoprolol succinate 25 mg tablet extended release 24 hr
12.5 mg PO Daily
Eliquis 5 mg tablet
5 mg PO BID
omega-3 acid ethyl esters [Lovaza] 1 gram Capsule
1 cap PO BID
levofloxacin 500 mg tablet
500 mg PO DAILY Qty: 10 0RF
Referrals:
Nancy Quach MD [Family Provider] -
Interventions
Interventions:
*Risk Screen - Suicide Last Done: 12/11/24 17:07
*General Assessment Last Done: 12/11/24 18:28
*Neglect/Abuse Screening Last Done: 12/11/24 17:07
*ED COVID-19 Vaccine History Last Done: 12/11/24 18:28
ED-Musculoskeletal Assessment Last Done: 12/11/24 18:28
ED- Neurological Assessment Last Done: 12/11/24 18:28
ED-Skin Assessment Last Done: 12/11/24 18:28
Discharge Date and Time
Print Language: AFGHAN
== END 2024-12-11 21:11 | disposition home or self-care (01) ==
LOC: EMR 16:49
PROVIDERS: EMERGENCY PHYSICIAN Emergency Medicine; FAMILY PHYSICIAN Family Medicine
DX: S00.03XA Contusion of scalp, initial encounter (principal); S80.01XA Contusion of right knee, initial encounter; W19.XXXA Unspecified fall, initial encounter; Y93.01 Activity, walking, marching and hiking; E78.00 Pure hypercholesterolemia, unspecified; I10 Essential (primary) hypertension; I25.10 Atherosclerotic heart disease of native coronary artery without angina pectoris; I48.91 Unspecified atrial fibrillation; J45.909 Unspecified asthma, uncomplicated; I38 Endocarditis, valve unspecified; R32 Unspecified urinary incontinence; Z79.01 Long term (current) use of anticoagulants; Z90.49 Acquired absence of other specified parts of digestive tract
CPT/HCPCS: 99284; 70450; 73564; 73590

== ENCOUNTER 2024-12-16 13:17 | Inpatient (IN) | payer MEDICARE, OTHER, SELFPAY ==
[2024-12-16] VITALS (15 sets, daily range): BP systolic 97–155; BP diastolic 46–116; BMI 41.9; BMI 40.9
[2024-12-16 05:43] LABS: % Basophils 1.1 % (0-2); % Eosinophils 4.3 % (0-6); % Immature Granulocytes 0.3 % (0-0.5); % Lymphocytes 19.9 % (20.5-51.1); % Monocytes 8.5 % (1.7-9.3); % Neutrophils 65.9 % (42.2-75.2); Absolute Basophils 0.1 10^3/uL (0-0.2); Absolute Eosinophils 0.4 10^3/uL (0-0.7); Absolute Lymphocytes 1.9 10^3/uL (1.2-3.4); Absolute Monocytes 0.8 10^3/uL (0.1-0.6); Absolute Neutrophils 6.2 10^3/uL (1.4-6.5); Hematocrit 37.5 % (37.0-47.0); Hemoglobin 12.2 g/dL (12.0-16.0); Mean Corp Hgb Conc. 32.5 g/dL (33.0-37.0); Mean Corpuscular Hgb 28.6 pg (27.0-31.0); Mean Platelet Volume 12.1 fL (7.4-10.4); Nucleated Red Blood Cells % 0 %; Platelet Count 195 10^3/uL (130-400); Red Blood Cell Count 4.26 10^6/uL (4.20-5.40); Red Cell Dist. Width 14.7 % (11.5-14.5); White Blood Cell Count 9.4 10^3/uL (4.8-10.8)
--- NOTE | 2024-12-16 05:44 | EDRN ---
Pt woke with chest pain and pt's phone let her know she was in afib. Pt took a sl ntg at 0337 and at 0402 she took a second one. Pain was L side of pt's chest and she says her teeth hurt. Pt felt sob at the time and says her heart hurt and she
felt sick to her stomach. Ntg helped pt's symptoms. No fever/chlils/cough. Pt denies pain at this time and is SB in 40-50's.
--- NOTE | 2024-12-16 05:50 | ED.GENMED ---
History of Present Illness
General
Chief Complaint: Chest Pain
Source: patient
Exam Limitations: none
Time Seen by Provider: 12/16/24 05:49
History of Present Illness
History of Present Illness:
84-year-old female woke up about 3 or 330 this morning sudden onset of chest pain some shortness of breath teeth pain heart racing. Symptoms lasted 10 to 15 minutes. She felt she was in atrial fibrillation. She has had similar symptoms with her
atrial fibrillation but not usually the chest pain. She is asymptomatic now. Patient is anticoagulated. She had a recent head injury. She has no unusual headache vomiting visual issues or neurologic issues.
Past History
Past History
ED Past Medical History: Asthma, CAD, HTN, Hypercholesterolemia, Valvular disease and Other (Urinary incontinence)
ED Past Surgical History: Appendectomy, Cardiac, , Tonsilectomy and Other
Social History
Tobacco: Non-smoker
Alcohol: Occasional
Drug: None
Personal:
Living: alone
Employment: Retired
Family History
Family History: Other
Review of Systems
Review of Systems
All Other Systems: Not applicable
Cardiac: Denies syncope
ABD/GI: Denies bloody stools or black stools
Phy Exam
Physical Exam
Physical Exam:
GENERAL: Alert and oriented in no apparent distress
EYE: Orbits normal. Periorbital ecchymosis relatively fresh appearing. Areas of yellowing ecchymosis to the right forehead and resolving hematoma to the right anterior scalp
NECK: Supple
CARDIAC: Regular rate and rhythm without any obvious murmurs.
LUNGS: Clear breath sounds,normal
ABDOMEN: Soft, without focal tenderness or distention
NEUROLOGICAL: Alert and oriented , grossly non-focal
SKIN: Warm and dry, no rash or lesion, no discoloration, skin intact.
MUSCULOSKELETAL: No edema,no deformity.Good color
PSYCH: Normal and appropriate interaction.
Scores
Heart Score for Chest Pain Patients
STEMI patient?: No
History: Moderately Suspicious
ECG: Normal
Age: >/= 65 years
Risk Factors: >/= 3 Risk Factors or History of CAD
Troponin: </= Normal Limit
Heart Score for Chest Pain Patients: 5
Heart Score Risk: 20.3% MACE over next 6 weeks
Course
Orders/Labs/Results
Orders:
Orders
12/16/24 05:18
Electrocardiogram (*1) Urgent
Reason for Study: Chest Pain
Cardiac Monitoring- Treatment ONCE
EKG- Treatment ONCE
12/16/24 05:37
Complete Blood Count/With Diff Urgent
Troponin I Urgent
12/16/24 06:00
CT Head W/o Iv Contrast Urgent
Comment:
Reason For Exam: Recent head trauma/anticoagulated
CXR2 [CR Chest - 2 Views ] Urgent
Comment:
Reason For Exam: cp
12/16/24 07:55
EKG [Electrocardiogram (*1)] Urgent
Reason for Study: Chest Pain
EKG- Treatment ONCE
12/16/24 08:54
Comprehensive Metabolic Panel Urgent
Troponin I Urgent
12/16/24 12:07
Heparin Protocol- PTT Orders As Directed
PTT per Heparin protocol: -Obtain CBC and baseline PTT - if not already collected.
-Obtain PTT 6 hours from start of infusion. Then, every 6 hours until 2 consecutive
PTT's are therapeutic. Then, PTT Daily.
-With each rate change, obtain PTT every 6 hours until 2 consecutive PTT's are
therapeutic. Then, PTT Daily.
Notify MD As Directed
Notify physician if: PTT is greater than or equal to 200.
12/16/24 12:12
PTT Urgent
Comment: Obtain baseline before beginning heparin infusion if not already collected
Metoprolol Xl [Toprol Xl] 12.5 mg PO NOW STA
12/16/24 12:15
Heparin 32481 Units/250 ml 25,000 units in 250 ml IV PER PROTOCOL
Weight to be used for heparin protocol in kilograms (kg):: 94
Protocol:: Cardiac Tx/Acute Coronary
PTT Goal Range to be used:: PTT 73 to 111 seconds
Order type:: Initial
INITIAL Infusion Dose (UNITS/KG/hr) & then follow protocol:: 12 units/kg/hr
Infusion Dose in UNITS/hr & then follow protocol (UNITS/hr):: 1,000
INFUSION RATE in mL/hr & then follow protocol (mL/hr):: 10
PTT less than or equal to 64 seconds:: Increase rate by 200 units/hr (+ 2 mL/hr)
PTT 64.1 to 72.9 seconds:: Increase rate by 100 units/hr (+ 1 mL/hr)
PTT 73 to 111 seconds:: Target Range. No change in rate.
PTT 111.1 to 130.9 seconds:: Decrease rate by 100 units/hr (- 1 mL/hr)
PTT 131 to 199.9 seconds:: HOLD for 1 hr. Then decrease rate by 200 units/hr (- 2 mL/hr)
PTT greater than or equal to 200 seconds:: HOLD for 2 hrs & Notify Provider. Then decrease by 200 units/hr (-
2 mL/hr)
Lab follow-up:: Each change, PTT q6h until 2 consecutive are therapeutic. Then PTT
daily.
12/16/24 12:17
ECG [Electrocardiogram (*1)] Urgent
Reason for Study: CAD
Cardiology Consult: Awais Matos
Echo 2D MMode Color/Doppler Routine
Reason for Study: CAD, chest pain
Cardiology Consult: Awais Matos
Troponin I Urgent
12/16/24 13:00
Flush (0.9% Sodium Chloride) [Flush (Nss)] See Dose Instructions IV PER PROTOCOL
12/17/24 06:00
Electrocardiogram (*1) IN AM
Reason for Study: CAD
Cardiology Consult: Awais Matos
Cardiovascular Evaluation IN AM
12/18/24 06:00
Complete Blood Count/No Diff Q2D
Comment: Notify MD if platelet count is <130,000 or decreases by 50% from baseline
12/20/24 06:00
Complete Blood Count/No Diff Q2D
Comment: Notify MD if platelet count is <130,000 or decreases by 50% from baseline
12/22/24 06:00
Complete Blood Count/No Diff Q2D
Comment: Notify MD if platelet count is <130,000 or decreases by 50% from baseline
12/24/24 06:00
Complete Blood Count/No Diff Q2D
Comment: Notify MD if platelet count is <130,000 or decreases by 50% from baseline
12/26/24 06:00
Complete Blood Count/No Diff Q2D
Comment: Notify MD if platelet count is <130,000 or decreases by 50% from baseline
12/28/24 06:00
Complete Blood Count/No Diff Q2D
Comment: Notify MD if platelet count is <130,000 or decreases by 50% from baseline
12/30/24 06:00
Complete Blood Count/No Diff Q2D
Comment: Notify MD if platelet count is <130,000 or decreases by 50% from baseline
01/01/25 06:00
Complete Blood Count/No Diff Q2D
Comment: Notify MD if platelet count is <130,000 or decreases by 50% from baseline
Abnormal Lab Results
12/16/24 12/16/24
05:37 08:54
MCHC 32.5 L g/dL
(33.0-37.0)
RDW 14.7 H %
(11.5-14.5)
MPV 12.1 H fL
(7.4-10.4)
Absolute Monos (auto) 0.8 H 10^3/uL
(0.1-0.6)
Lymphocytes % 19.9 L %
(20.5-51.1)
BUN 19 H mg/dl
(7-17)
Glucose 144 H mg/dl
(70-99)
Troponin I 0.102 H* D ng/ml
Total Protein 6.1 L g/dl
(6.3-8.2)
12/16/24 05:37
12/16/24 08:54
Vital Signs
Initial and Last Documented VS:
Initial Vital Signs
BP
151/56
12/16/24 05:22
Last Documented Vital Signs
Temp Pulse Resp BP Pulse Ox
97.9 F 66 19 109/64 94
12/16/24 05:25 12/16/24 10:00 12/16/24 10:00 12/16/24 10:00 12/16/24 08:30
MDM/Problems Addressed
Differential Diagnosis Includes:
Patient describing a likely episode of atrial fibrillation. This is self resolved. From an arrhythmia standpoint she is stable. However with this tachycardic episode would have to consider ischemic heart disease. Patient will have 2 troponins
and EKGs done. Secondly patient has bilateral periorbital ecchymosis scalp hematoma from a recent trauma on Eliis. For completeness a repeat CT scan will be done to check for delayed bleed
*Pulse Oximetry
Patient hypoxic: no
*EKG
Interpreted by ED Provider?: Yes
Interpretation: abnormal
Comparison EKG: changes noted
Heart Rate: 58
Rate: bradycardiac
Rhythm: sinus
[place]: normal axis
Interval: normal interval
QRS Pattern: normal QRS
Ischemia: no ischemia
*Critical Care Note
Total Time (30-74mins, 75-104mins- exclusive of procedures): Not Applicable
Data Reviewed
Review of Other/Old Records Reveals: Labs, Records and Testing
Update Note
Update Note:
Seen by cardiology who is in agreement with admission. Possible new onset angina precipitated by atrial fibrillation/RVR
ED Attending Note
-
Portions of this chart may have been created with voice recognition software.� Occasional wrong word or��sound alike� substitutions may have occurred due to the inherent limitations of voice recognition software.
Discharge Plan
Departure
Patient Disposition: Admit
Date of Disposition: 12/16/24
Time of Disposition: 11:20
Presentation/result/management discussed w/ accepting MD/DO: Cardiology
Discharge Problem:
New onset angina, Probable atrial fibrillation paroxysmal/
Prescriptions:
No Action
amlodipine 2.5 MG tablet
2.5 mg PO DAILY
aspirin 81 MG tablet,delayed release (DR/EC)
81 mg PO HS
losartan 25 MG tablet
25 mg PO HS
rosuvastatin [Crestor] 40 MG tablet
40 mg PO DAILY
nitroglycerin 0.4 MG tablet, sublingual
0.4 mg sublingual [id number] PRN (Reason: chest pain)
PreserVision AREDS-2 1 EACH capsule
1 ea PO BID
Eliquis 5 mg tablet
5 mg PO BID
omega-3 acid ethyl esters [Lovaza] 1 gram Capsule
1 cap PO BID
polyethylene glycol 3350 [Miralax] 17 gram Powder In Packet
17 g PO DAILYPRN PRN (Reason: constipation)
methenamine hippurate 1 gram tablet
1 g PO BID
ascorbic acid (vitamin C) 500 mg Tablet
500 mg PO BID
metoprolol succinate 25 mg tablet extended release 24 hr
12.5 mg PO DAILY
escitalopram oxalate 10 mg tablet
10 mg PO DAILY
Referrals:
Nancy Quach MD [Family Provider] -
Interventions
Interventions:
*Risk Screen - Suicide Last Done: 12/16/24 05:25
*General Assessment Last Done: 12/16/24 05:25
*Neglect/Abuse Screening Last Done: 12/16/24 05:25
ED- Fall Risk Assessment Last Done: 12/16/24 05:33
*ED COVID-19 Vaccine History Last Done: 12/16/24 05:25
ED- Cardiac Assessment Last Done: 12/16/24 05:46
Discharge Date and Time
Print Language: KUWAITI
[2024-12-16 06:10] LABS: Troponin I < 0.012 ng/ml
[2024-12-16 09:26] LABS: ALT (SGPT) 18 U/L (0-35); AST (SGOT) 30 U/L (14-36); Albumin 3.7 g/dl (3.5-5.0); Alkaline Phosphatase 75 U/L (38-126); Blood Urea Nitrogen 19 mg/dl (7-17); Calcium 8.8 mg/dl (8.4-10.2); Carbon Dioxide 27 mmol/L (22-30); Chloride 105 mmol/L (98-107); Estimated Creatinine Clearance 51 ml/min; Glucose 144 mg/dl (70-99); Potassium 4.5 mmol/L (3.5-5.1); Sodium 138 mmol/L (135-145); Total Bilirubin 0.4 mg/dl (0.2-1.3); Total Protein 6.1 g/dl (6.3-8.2); eGFR > 60.00
[2024-12-16 09:39] LABS: Troponin I 0.102 ng/ml
--- NOTE | 2024-12-16 11:43 | CON.CAR ---
Addendum entered and electronically signed by Awais Matos MD 12/16/24 12:38:
I saw and examined the patient.
The APPRENTICE JOCKEY or PA's note was reviewed and I agree with the note.
Comment: General: Well developed, well nourished in NAD.
Neck: Supple, no JVD, HJR, carotids +2 B/L, no bruits bilaterally.
Heart: Non displaced PMI, RRR, no murmurs, No S3, S4, no rubs.
Lungs: Clear to auscultation bilaterally, no wheeze, rhonchi, rubs bilaterally,
normal expiratory phase.
Abdomen: Normal bowel sounds, soft, non-tender, non-distended.
Extremities: No clubbing, cyanosis or edema bilaterally.
Skin: Ecchymoses over both eyes
Neuro: Grossly nonfocal, awake, alert and oriented x3.
Shaylee has a history of CAD status post 5 vessel CABG in 2003, A-fib, hypertension, hyperlipidemia. She presents with chest discomfort and rapid heart rate consistent with prior A-fib. Of note recently Toprol had been stopped due to heart rate of
40 on Apple watch. Pain lasted approximately 5 minutes. Some relief with nitroglycerin initially. Initial troponin was negative then repeat was 0.102.
Will admit and hold Eliquis. Will start IV heparin. Consider catheterization depending on troponins and echocardiogram. Discussed with primary pocket cutter who favors invasive management. Discussed with daughter at bedside. Will restart Toprol
and add Imdur as well. Catheterization may end up being December 18 because of need to hold Eliquis.
Original Note:
Consultation
Consultation Request
Date/Time Consultation Requested: 12/16/24
Date/Time Consultation Performed: 12/16/24
Requesting Provider: Dr. Alarcon in the ER
Performing Provider: Dr. Matos
Reason for Consultation: Chest pain, elevated Troponin
Medical History
-
History of Present Illness:
Patient came to ER this morning with an episode of palpitations and chest pain at home and is being admitted with elevated troponin and cardiology has been consulted. Patient has a history of CAD status post CABG in 2003. Her last stress test
was a dobutamine SC 01/17/2022 that was negative for ischemia at 82% MPHR. Patient was seen in the office on 10/02/2024 and labs and recent echo were felt to be stable. Patient called our office on 11/25/2023 to report that her Apple Watch showed an
HR of 40 overnight and while the patient was reassured that this can happen with sleep she was also told that she could start holding her outpatient dose of Toprol XL 12.5 mg daily. Patient then had a trip and fall with facial ecchymoses and came
to ER on 12/11/[address] of the head was negative and her Eliquis has been continued. Patient went to bed last night feeling fine, but awoke this morning at about 3 AM feeling as though her heart was racing and having CP described abscess
SSCP radiating up into her teeth and jaw. Patient took NTG SL x 1 at home with minimal relief in pain. She took a second NTG SL x 1 a few minutes later and her pain started to improve, but did not completely resolve and so she called 911. Her
chest pain improved on the way to the ER and she has not had recurrence of pain. Initial troponin undetectable and then up to 0.1. ECGs here in the ER have shown sinus tachycardia without evidence of A-fib, but patient apparently has a history of
A-fib previously noted on Apple Watch and has been on Eliquis for about 2 years.
PMH:
CAD s/p CABG with WOODWARD to LAD, SVG to PDA and RPL and SVG to Diag-11 and OM-1 2003
Paroxysmal A-fib/tach 08/21/2023
Chronic Eliquis OAC
HTN
Hyperlipidemia
Past Medical History
Past Medical History: Other (in HPI)
Past Surgical History: Appendectomy, Cardiac (cABG 2003), Gynecological (HYSTERECTOMY), Orthopedic and Tonsilectomy
Social History
Tobacco: Non-Smoker
Alcohol: None
Drug: None
Living: With Family
Family History
Family History: CAD, Diabetes and Other (Emphysema, Crohn's disease)
Allergies / Home Medications
Allergy/AdvReac Type Severity Reaction Status Date / Time
ezetimibe [From Zetia] Allergy Unknown Verified 12/16/24 05:31
penicillin G Allergy Hives- Verified 12/16/24 05:31
tolerated
ceftriaxone
in 2017
Ovdctdy-WAI-HfO Reductase Allergy drowsiness Verified 12/16/24 05:31
Inhibitor
[Dngkodj-Eyl-Mha Reductase
Inhibitor]
venom-honey bee Allergy SWELLING Verified 12/16/24 05:31
THROAT
vitamin E (d-alpha Allergy Unknown Verified 12/16/24 05:31
tocopherol)
�Medication �Instructions �Recorded �Confirmed �Type
amlodipine 2.5 mg tablet 2.5 mg PO DAILY Blood Pressure 06/13/17 12/16/24 History
aspirin 81 mg tablet,delayed 81 mg PO HS Blood Clot 06/13/17 12/16/24 History
release Prevention/Tx
losartan 25 mg tablet 25 mg PO HS Blood Pressure 06/13/17 12/16/24 History
rosuvastatin 40 mg tablet (Crestor) 40 mg PO DAILY High Cholesterol 06/13/17 12/16/24 History
nitroglycerin 0.4 mg sublingual 0.4 mg sublingual [id number] PRN 07/24/19 12/16/24 History
tablet chest pain
vit C 250 mg-vit E 90 mg-zinc 40 1 ea PO BID Supplement 07/24/19 12/16/24 History
mg-copper 1 [id number]
capsule (PreserVision AREDS-2)
apixaban 5 mg tablet (Eliquis) 5 mg PO BID Blood Clot 03/07/24 12/16/24 History
Prevention/Tx
omega-3 acid ethyl esters 1 gram 1 cap PO BID High Cholesterol 03/07/24 12/16/24 History
capsule (Lovaza)
Depression Medication 1 tab PO DAILY 12/16/24 12/16/24 History
Review of Systems
-
History Source: Patient and Family (Daughter Jocelyn sitting bedside helping with HPI)
All other systems: Negative unless noted
Physical Exam
Vital Signs
Temp Pulse Resp BP Pulse Ox
97.9 F 66 19 109/64 94
12/16/24 05:25 12/16/24 10:00 12/16/24 10:00 12/16/24 10:00 12/16/24 08:30
GEN: NAD. AAOx3
HEENT: B/L black eyes, EOMI
LUNGS: RA. CTAB/L, no wheezes/rales
CV: SR on tele. Reg, S1/S2, 2/6 syst LSB
ABD: soft, BS+, NT, ND
EXT: No clubbing, cyanosis, lesions or edema B/L
NEURO: Gross non-focal
SKIN: Warm, dry and pink. No rash
Lab Results
12/16/24 05:37
12/16/24 08:54
Troponin I 0.102 ng/ml H* D 12/16/24 08:54
Impression / Plan
-
PCP: Dr. Quach
Cardiology: Dr. Danika Smith
GI: Dr. Horta
Impression:
Chest pain and elevated Troponin 12/16/24
ACS
Elevated Troponin
CAD s/p CABG with WOODWARD to LAD, SVG to PDA and RPL and SVG to Diag-11 and OM-1 2003
Paroxysmal A-fib/tach 08/21/2023
Chronic Eliquis OAC
HTN
Hyperlipidemia
Recent ER visit for fall 12/11/2024
Echo 09/08/2024: Small LV without WMA and EF preserved at 68%, peak LVOT gradient 13 mmHg at rest and 14 mmHg with Valsalva, stage II diastolic dysfunction, normal RV size and function, mild MR, no aortic regurgitation
Plan:
-Patient came to ER this morning with an episode of palpitations and chest pain at home and is being admitted with elevated troponin and cardiology has been consulted. Patient has a history of CAD status post CABG in 2003. Her last stress test
was a dobutamine SC 01/17/2022 that was negative for ischemia at 82% MPHR. Patient was seen in the office on 10/02/2024 and labs and recent echo were felt to be stable. Patient called our office on 11/25/2023 to report that her Apple Watch showed an
HR of 40 overnight and while the patient was reassured that this can happen with sleep she was also told that she could start holding her outpatient dose of Toprol XL 12.5 mg daily. Patient then had a trip and fall with facial ecchymoses and came
to ER on 12/11/[address] of the head was negative and her Eliquis has been continued. Patient went to bed last night feeling fine, but awoke this morning at about 3 AM feeling as though her heart was racing and having CP described abscess
SSCP radiating up into her teeth and jaw. Patient took NTG SL x 1 at home with minimal relief in pain. She took a second NTG SL x 1 a few minutes later and her pain started to improve, but did not completely resolve and so she called 911. Her
chest pain improved on the way to the ER and she has not had recurrence of pain. Initial troponin undetectable and then up to 0.1. ECGs here in the ER have shown sinus tachycardia without evidence of A-fib, but patient apparently has a history of
A-fib previously noted on Apple Watch and has been on Eliquis for about 2 years.
-ECG reviewed by me with sinus tachycardia and no ST changes. Tele in the ER reviewed by me is SR.
-Initial troponin undetectable and then up to 0.102. Recommend trending troponin
-Check echo
-Will manage as NSTEMI/ACS and will start heparin drip now, ordered by me
-Patient is chronically on Eliquis 5 mg BID and took her last dose last night. Will hold Eliquis in anticipation of cardiac cath
-Discussed with patient and daughter at bedside medical management including restarting Toprol-XL and adding Imdur ER versus invasive options including cardiac catheterization. We talked about the risk versus benefit of cardiac catheterization.
Patient and her daughter are considering options, but leaning towards cardiac cath
-Check CVE. Outpatient dose of Crestor 40 mg daily should be continued
-Recheck ECG in AM ordered by me
[2024-12-16 12:44] LABS: APTT 35.1 Sec (23.4-35.0)
[2024-12-16] MEDS: HEPARIN 25000 UNITS/250 ML IV (13:04)
--- NOTE | 2024-12-16 13:04 | HPS.HSE ---
Family Physician
-
Family Physician: Nancy Quach
Chief Complaint
-
Chest pain
History of Present Illness
84-year-old female with past medical history of CAD status post CABG in 2003, hypertension, paroxysmal atrial fibrillation on Eliquis, hyperlipidemia came to the hospital after waking up this morning with chest pain. Currently denies any chest
pain, shortness of breath. She had elevated troponin in the ED. Per patient her chest pain improved with nitroglycerin. Currently patient denies any nausea, vomiting. Denies any abdominal pain, constipation or diarrhea. Reports compliant with
her medications however recently started to hold her Toprol due to bradycardia. In the ED patient initial troponin was undetectable however then went up to 0.1. Seen by cardiology in the ED. Of note patient also had a mechanical fall last week
who came to the ED with facial ecchymosis. CT scan at that time was negative for any bleed.
Medical History
Past Medical History
Past Medical History: Reports Arrhythmia, CAD, HTN and Hypercholesterolemia
Past Surgical History: Reports Appendectomy, Cardiac, Gynocological and Orthopedic
Social History
Tobacco: Non-smoker
Alcohol: None
Family History
Family History: Not pertinent
Allergies / Home Medications
Allergies reflects when Allergies were last updated in [employer].
Home Medications with original date entered in [employer]
Allergy/Medication List:
Allergies
Allergy/AdvReac Type Severity Reaction Status Date / Time
ezetimibe [From Zetia] Allergy Unknown Verified 12/16/24 05:31
penicillin G Allergy Hives- Verified 12/16/24 05:31
tolerated
ceftriaxone
in 2017
Gsqydvr-EDU-HgP Reductase Allergy drowsiness Verified 12/16/24 05:31
Inhibitor
[Wfqxgkc-Tfp-Wmu Reductase
Inhibitor]
venom-honey bee Allergy SWELLING Verified 12/16/24 05:31
THROAT
vitamin E (d-alpha Allergy Unknown Verified 12/16/24 05:31
tocopherol)
Home Medications
amlodipine 2.5 mg tablet 2.5 mg PO DAILY Blood Pressure 06/13/17
aspirin 81 mg tablet,delayed release 81 mg PO HS Blood Clot Prevention/Tx 06/13/17
losartan 25 mg tablet 25 mg PO HS Blood Pressure 06/13/17
rosuvastatin 40 mg tablet (Crestor) 40 mg PO DAILY High Cholesterol 06/13/17
nitroglycerin 0.4 mg sublingual tablet 0.4 mg sublingual [id number] PRN chest pain 07/24/19
vit C 250 mg-vit E 90 mg-zinc 40 mg-copper 1 sr-hzgebm-vboazw capsule (PreserVision AREDS-2) 1 ea PO BID Supplement 07/24/19
apixaban 5 mg tablet (Eliquis) 5 mg PO BID Blood Clot Prevention/Tx 03/07/24
omega-3 acid ethyl esters 1 gram capsule (Lovaza) 1 cap PO BID High Cholesterol 03/07/24
ascorbic acid (vitamin C) 500 mg tablet 500 mg PO BID 12/16/24
escitalopram oxalate 10 mg tablet 10 mg PO DAILY 12/16/24
methenamine hippurate 1 gram tablet 1 g PO BID 12/16/24
metoprolol succinate 25 mg tablet,extended release 24 hr 12.5 mg PO DAILY 12/16/24
polyethylene glycol 3350 17 gram oral powder packet (Miralax) 17 g PO DAILYPRN PRN constipation 12/16/24
Review of Systems
-
History Source: Patient
A 12 point ROS was completed and negative except as noted: Yes
Cardiac: Denies Diaphoresis or Palpitations
Physical Exam
Vital Signs
Vital Signs
Temp Pulse Resp BP Pulse Ox
97.9 F 66 19 109/64 94
12/16/24 05:25 12/16/24 10:00 12/16/24 10:00 12/16/24 10:00 12/16/24 08:30
Physical Exam
General: Well Nourished and No Apparent Distress
HEENT: Anicteric and Moist mucous membranes
Respiratory: Clear and Non Labored Respirations; No Wheezes or Crackles
Cardiac: S1/S2 and Regular Rhythm
Breast: Deferred by me
GI: Soft, Non Tender, Non Distended and Normal Bowel Sounds
Rectal: Deferred by Provider
Genito-urinary: No Mitchell
Musculoskeletal: No Edema
Neuro: Awake, Alert, Oriented and AO x 3
Psych: Calm and Intact Judgment/Insight
Laboratory Results
-
12/16/24 05:37
12/16/24 08:54
Laboratory Results
APTT 35.1 Sec (23.4-35.0) H 12/16/24 12:12
Total Bilirubin 0.4 mg/dl (0.2-1.3) 12/16/24 08:54
AST 30 U/L (14-36) 12/16/24 08:54
ALT 18 U/L (0-35) 12/16/24 08:54
Alkaline Phosphatase 75 U/L (38-126) 12/16/24 08:54
Troponin I 0.102 ng/ml H* D 12/16/24 08:54
Data Reviewed
-
Lab Data: Labs Reviewed by me, Discussed with Patient and Discussed with Family
Impression/Plan
-
Chest pain, concern for NSTEMI/ACS
History of CAD status post 5 vessel CABG
Heparin drip started
Hold Eliquis per cardiology
Trend troponin
Check echocardiogram
Ischemic evaluation per cardiology
Continue aspirin
Nitro as needed
Restart metoprolol
EKG with sinus bradycardia
Persistent large right frontal scalp hematoma secondary to mechanical fall last week
Continue to monitor
CT noted
History of hypertension
Continue amlodipine, hold losartan
Hyperlipidemia
Continue statin
Depression
Continue with home meds
DVT prophylaxis
Heparin drip
Full code, discussed on admission
Discussed with daughter at bedside
I spent a total of 78 minutes with the patient or on the floor. More than 50% of this time involved counseling and coordination of care.
[2024-12-16 13:39] LABS: Troponin I 0.166 ng/ml
--- NOTE | 2024-12-16 15:23 | PTCARENOTE ---
Received patient from the ED with diagnosis of chest pain. Assisted from the stretcher to the bed, presently SR on the monitor. EKG done as ordered. IV heparin infusing at 1000 units/hr. Patient denies any chest pain or sob. Nursing admission
completed, oriented to the room and plan of care. Call lackey in reach, aware to call for assistance when getting oob due to recent fall at home.
[2024-12-16 18:08] LABS: Troponin I 0.172 ng/ml
[2024-12-16 20:03] LABS: APTT 80.9 Sec (23.4-35.0)
[2024-12-16 20:12] LABS: Troponin I 0.169 ng/ml
[2024-12-16] MEDS: ASPIR LOW (ENTERIC COATED) 81 MG PO (20:37)
[2024-12-16] MEDS: VITAMIN C 500 MG PO (20:37)
[2024-12-16] MEDS: HIPREX 1 GRAM PO (20:37)
[2024-12-16] MEDS: OCUVITE SOFTGEL 1 CAP PO (20:37)
[2024-12-16] MEDS: MELATONIN 3 MG PO (22:44)
[2024-12-17] VITALS (19 sets, daily range): BP systolic 129–180; BP diastolic 37–72; BMI 40.8; BMI 41.4
--- NOTE | 2024-12-17 00:40 | PTCARENOTE ---
Assumed care of the pt @ 1900. Pt is AAOx3 + TRIBAL SB on the monitor denies CP VSS Heparin gtt infusing. Pt requested Melatonin for sleep. Pt is 1 person assist with walker. Call lackey within reach.
[2024-12-17 02:21] LABS: % Basophils 1.1 % (0-2); % Eosinophils 5.5 % (0-6); % Immature Granulocytes 0.2 % (0-0.5); % Lymphocytes 29.3 % (20.5-51.1); % Monocytes 9.7 % (1.7-9.3); % Neutrophils 54.2 % (42.2-75.2); Absolute Basophils 0.1 10^3/uL (0-0.2); Absolute Eosinophils 0.5 10^3/uL (0-0.7); Absolute Lymphocytes 2.5 10^3/uL (1.2-3.4); Absolute Monocytes 0.8 10^3/uL (0.1-0.6); Absolute Neutrophils 4.6 10^3/uL (1.4-6.5); Hematocrit 34.8 % (37.0-47.0); Hemoglobin 11.5 g/dL (12.0-16.0); Mean Corpuscular Hgb 28.9 pg (27.0-31.0); Mean Corpuscular Volume 87.4 fL (81.0-99.0); Mean Platelet Volume 12.2 fL (7.4-10.4); Nucleated Red Blood Cells % 0 %; Platelet Count 180 10^3/uL (130-400); Red Blood Cell Count 3.98 10^6/uL (4.20-5.40); Red Cell Dist. Width 14.6 % (11.5-14.5); White Blood Cell Count 8.5 10^3/uL (4.8-10.8)
[2024-12-17 02:32] LABS: APTT 134.2 Sec (23.4-35.0)
[2024-12-17 03:14] LABS: Blood Urea Nitrogen 23 mg/dl (7-17); Calcium 9.4 mg/dl (8.4-10.2); Carbon Dioxide 23 mmol/L (22-30); Chloride 104 mmol/L (98-107); Estimated Creatinine Clearance 44 ml/min; Glucose 123 mg/dl (70-99); HDL Cholesterol 63 mg/dl; LDL Cholesterol, Calculated 43 mg/dl; Potassium 4.7 mmol/L (3.5-5.1); Sodium 136 mmol/L (135-145); Total Cholesterol 126 mg/dl (50-199); Triglyceride 101 mg/dl (10-149); Very Low Density Lipoprotein 20 mg/dl (0-30); eGFR > 60.00
--- NOTE | 2024-12-17 09:07 | W.PN.CARDCBS ---
Addendum entered and electronically signed by Awais Matos MD 12/17/24 09:42:
I saw and examined the patient.
The INTERNAL SALESPERSON or PA's note was reviewed and I agree with the note.
Comment: General: Well developed, well nourished in NAD.
Neck: Supple, no JVD, HJR, carotids +2 B/L, no bruits bilaterally.
Heart: Non displaced PMI, RRR, no murmurs, No S3, S4, no rubs.
Lungs: Clear to auscultation bilaterally, no wheeze, rhonchi, rubs bilaterally,
normal expiratory phase.
Extremities: No clubbing, cyanosis or edema bilaterally.
Neuro: Grossly nonfocal, awake, alert and oriented x3.
Stable cardiology status. Catheterization on 12/18 because she got Eliquis on 12/16. Continue IV heparin. Echocardiogram okay
Original Note:
Today's Communication / Plan
-
Cath in AM
51 min face to face and non face to face in coordination of care
Impression / Plan
-
PCP: Dr. Quach
Cardiology: Dr. Danika Smith
GI: Dr. Horta
Impression:
Chest pain and elevated Troponin 12/16/24
ACS
Elevated Troponin
CAD s/p CABG with WOODWARD to LAD, SVG to PDA and RPL and SVG to Diag-11 and OM-1 2003
Paroxysmal A-fib/tach 08/21/2023
Chronic Eliquis OAC
HTN
Hyperlipidemia
Recent ER visit for fall 12/11/2024
Echo 09/08/2024: Small LV without WMA and EF preserved at 68%, peak LVOT gradient 13 mmHg at rest and 14 mmHg with Valsalva, stage II diastolic dysfunction, normal RV size and function, mild MR, no aortic regurgitation
Echo 12/16/2024: EF 55 to 60%, no WMA, posterior MAC with mild MR, aortic sclerosis without stenosis, moderate to severe TR with PAP 36 mmHg
Plan:
-No recurrence of CP overnight. Troponin peaked at 0.172.
-Echo completed 12/16/2024 was overall unchanged from echo in August and shows preserved EF without new WMA
-Plan remains for cardiac cath, but will defer to 12/18/2024 due to chronic Eliquis OAC and need for SEED PACKER access given history of CABG. Patient updated in the room on 12/17/2024 in the AM
-Continue heparin drip, renewed by me
-ECG reviewed by me 12/17/24 AM is NSR without acute ST changes.
-Last dose of Eliquis was 12/15/24 PM
-Previous outpatient dose of Toprol XL 12.5 mg daily was resumed on 12/16/2024. Patient had just recently stop that med on 11/25/2024 due to a heart rate in the 40s while she was sleeping, she was agreeable to restart
-LDL 43. Outpatient dose of Crestor 40 mg daily should be continued
HPI: Patient came to ER this morning with an episode of palpitations and chest pain at home and is being admitted with elevated troponin and cardiology has been consulted. Patient has a history of CAD status post CABG in 2003. Her last stress
test was a dobutamine SC 01/17/2022 that was negative for ischemia at 82% MPHR. Patient was seen in the office on 10/02/2024 and labs and recent echo were felt to be stable. Patient called our office on 11/25/2023 to report that her Apple Watch showed
an HR of 40 overnight and while the patient was reassured that this can happen with sleep she was also told that she could start holding her outpatient dose of Toprol XL 12.5 mg daily. Patient then had a trip and fall with facial ecchymoses and
came to ER on 12/11/[address] of the head was negative and her Eliquis has been continued. Patient went to bed last night feeling fine, but awoke this morning at about 3 AM feeling as though her heart was racing and having CP described
abscess SSCP radiating up into her teeth and jaw. Patient took NTG SL x 1 at home with minimal relief in pain. She took a second NTG SL x 1 a few minutes later and her pain started to improve, but did not completely resolve and so she called 911.
Her chest pain improved on the way to the ER and she has not had recurrence of pain. Initial troponin undetectable and then up to 0.1. ECGs here in the ER have shown sinus tachycardia without evidence of A-fib, but patient apparently has a history
of A-fib previously noted on Apple Watch and has been on Eliquis for about 2 years.
Progress Note - Residential Leasing Agent
Subjective
Date of Service: December 17, 2024
No recurrence of chest pain
Objective
Labs:
12/17/24 02:08
12/17/24 02:08
Labs
Hgb 11.5 g/dL (12.0-16.0) L 12/17/24 02:08
Hct 34.8 % (37.0-47.0) L 12/17/24 02:08
Plt Count 180 10^3/uL (130-400) 12/17/24 02:08
APTT 134.2 Sec (23.4-35.0) H 12/17/24 02:08
Sodium 136 mmol/L (135-145) 12/17/24 02:08
Potassium 4.7 mmol/L (3.5-5.1) 12/17/24 02:08
BUN 23 mg/dl (7-17) H 12/17/24 02:08
Creatinine 0.9 mg/dL (0.6-1.0) 12/17/24 02:08
Glucose 123 mg/dl (70-99) H 12/17/24 02:08
Troponins
12/16/24 12/16/24 12/16/24
05:37 08:54 12:41
Troponin I < 0.012 0.102 H* D 0.166 H* D
12/16/24 12/16/24 12/16/24
16:47 17:30 19:36
Troponin I Cancelled 0.172 H* 0.169 H*
Vital Signs and I&O:
Vital Signs
Temp Pulse Resp BP Pulse Ox
98.6 F 54 16 144/65 94
12/17/24 08:18 12/17/24 08:30 12/17/24 08:18 12/17/24 08:16 12/17/24 08:18
Vital Signs
Temp Pulse Resp BP Pulse Ox
98.6 F 54 16 144/65 94
12/17/24 08:18 12/17/24 08:30 12/17/24 08:18 12/17/24 08:16 12/17/24 08:18
Intake & Output
12/15/24 12/16/24 12/17/24 12/18/24
06:59 06:59 06:59 06:59
Intake Total 110 / 110
Balance 110 / 110
Physical Exam
Physical Exam
GEN: NAD. AAOx3
HEENT: B/L black eyes, EOMI
LUNGS: RA. No audible wheeze
CV: SR on tele.
ABD: ND
EXT: No edema B/L
NEURO: Gross non-focal
SKIN: No rash
[2024-12-17] MEDS: TOPROL XL PO (10:21)
[2024-12-17] MEDS: LEXAPRO 10 MG PO (10:36)
[2024-12-17] MEDS: CRESTOR 40 MG PO (10:36)
[2024-12-17] MEDS: HIPREX 1 GRAM PO (10:36)
[2024-12-17] MEDS: NORVASC 2.5 MG PO (10:36)
[2024-12-17] MEDS: OCUVITE SOFTGEL 1 CAP PO (10:37)
[2024-12-17] MEDS: VITAMIN C 500 MG PO (10:37)
[2024-12-17 10:47] LABS: APTT 82.9 Sec (23.4-35.0)
[2024-12-17] MEDS: DUONEB 3 ML INH (11:44)
--- NOTE | 2024-12-17 13:52 | CM ---
CM following for DC planning needs.
Met w/ patient at bedside to complete initial assessment.
Pt. informs that she resides in a private, 2 story home w/ her son and grandson (adult). She utilizes a RW and a SPC for mobility. Pt. still drives but acknowledges that she needs to give this up.
Pt. enjoys quilting in her free time and says this is her 'lifestyle'.
Goal is for DC to home without needs.
CM to follow.
[2024-12-17] MEDS: ASPIR LOW (ENTERIC COATED) 81 MG PO (14:40)
--- NOTE | 2024-12-17 15:00 | W.PN.HOSP.TC ---
Today's Communication/Plan
-
Monitor vital signs see plan
Continue with IV heparin
N.p.o. past midnight for cardiac catheterization tomorrow
Continue with metoprolol
Eliquis on hold
Assessment / Plan
Assessment / Plan
General: Well Nourished and No Apparent Distress
HEENT: Anicteric and Moist mucous membranes
Respiratory: Clear and Non Labored Respirations; No Wheezes or Crackles
Cardiac: S1/S2 and Regular Rhythm
GI: Soft, Non Tender, Non Distended and Normal Bowel Sounds
Genito-urinary: No Mitchell
Musculoskeletal: No Edema
Neuro: Awake, Alert, Oriented and AO x 3
Psych: Calm and Intact Judgment/Insight
Chest pain, concern for NSTEMI/ACS
History of CAD status post 5 vessel CABG
Continue with heparin gtt
Hold Eliquis per cardiology
Troponin noted
Echocardiogram 12/16 without significant change
Plan for cardiac catheterization 12/18, cardiology following
Continue aspirin
Nitro as needed
Continue metoprolol
EKG with sinus bradycardia
Persistent large right frontal scalp hematoma secondary to mechanical fall last week
Continue to monitor
CT noted
History of hypertension
Continue amlodipine, hold losartan
Hyperlipidemia
Continue statin
Depression
Continue with home meds
DVT prophylaxis
Heparin drip
Full code, discussed on admission
Anticipated Discharge: 24 - 48 hours
Subjective/Interval History
-
Date of Service: December 17, 2024
Denies chest pain
Objective Data
-
Labs:
Laboratory Results
12/17/24 12/17/24 12/17/24
02:08 10:25 16:25
APTT 82.9 H Pending
Sodium 136
Potassium 4.7
Chloride 104
Carbon Dioxide 23
BUN 23 H
Creatinine 0.9
Glucose 123 H
Calcium 9.4
Vital Signs:
Vital Signs
Temp Pulse Resp BP Pulse Ox
98.2 F 61 16 139/66 95
12/17/24 11:36 12/17/24 13:00 12/17/24 11:47 12/17/24 11:37 12/17/24 11:47
I&O
12/16/24 12/17/24 12/18/24
06:59 06:59 06:59
Intake Total 110 / 110
Balance 110 / 110
--- NOTE | 2024-12-17 15:07 | ITS.CL.CATH ---
Crating And Moving Estimator - Catheterization
Cardiac Catheterization
Procedure Report:
LEFT HEART CATHETERIZATION
Date of Procedure: December 17, 2024
Referring: Awais Matos
PROCEDURES:
1. Left heart catheterization, coronary angiogram.
2. Selective graft angiography.
3. Ultrasound-guided access.
INDICATION: Concern for NSTEMI
ACCESS: Left Radial Artery, 6Fr sheath, under ultrasound-guided
Ultrasound was utilized for vascular access. The radial artery was visualized under ultrasound, and the vessel was patent and pulsatile. An image was stored permanently in the patient's medical record. Under direct ultrasound guidance, a 6 Kiswahili
sheath was inserted into the artery using a micropuncture kit through a modified Seldinger technique.
HEMODYNAMICS : (mmHg)
AO (s/d) : 141/57
LV (s/d) : 155/8
LVEDP : 22
CORONARY FINDINGS
DOMINANCE: Right
LEFT MAIN: The left main artery is a large-caliber vessel with 30 to 40% distal tapering.
LEFT ANTERIOR DESCENDING: The left anterior descending artery is a medium to large caliber vessel which gives rise to multiple small caliber diagonal branches as it courses to the anterior interventricular groove and wraps around the apex. Mid to
distal LAD has a focal 80% stenosis just proximal to the touchdown of the WOODWARD graft which is widely patent.
CIRCUMFLEX: The left circumflex artery is a medium caliber vessel which gives rise to a couple small caliber obtuse marginal branches. There is a calcified 80 to 90% ostial to proximal left circumflex stenosis with left to left and left to right
collaterals. There is a patent saphenous vein graft to the OM territory.
RIGHT CORONARY ARTERY: The right coronary artery is a medium to large caliber calcified vessel with 100% chronic total occlusion in the proximal portion with [id number] collaterals.
GRAFT ANATOMY:
1. WOODWARD to LAD: Widely patent.
2. Saphenous vein graft to OM1 and diagonal branch: Widely patent
3. Saphenous vein graft to RPDA/RPL branches: Assumed to be occluded given we could not selectively engage with it despite utilizing JR, 3 DRC, MPA, AL-1 diagnostic catheters and performing an aortogram.
AORTOGRAM: A 6 Kiswahili pigtail was utilized to perform an aortogram to help locate bypass graft to the right coronary artery however we could not appreciate a patent graft.
SEDATION: 60 minutes of procedural sedation was utilized. An independent manager medical affairs was present to assist with and help manage the patient's level of consciousness and physiologic status.
RADIATION SUMMARY: Fluoro Time (min): 16.3, Dose (mGy): 75.07, DAP (Gy.cm2) : 1.05
Closure Device: Vascular band over left radial artery, 10 cc of air.
CONCLUSIONS
1. Severe [place] coronary artery disease.
2. WOODWARD to LAD and a saphenous vein graft to OM1/diagonal branch are widely patent.
3. Presumed occlusion of saphenous vein graft to RPDA/RPL with 100% proximal RCA chronic total occlusion. Ktqk-pr-uhnnp collaterals noted.
RECOMMENDATIONS
1. Goal-directed medical therapy to help optimize antianginal therapy and aggressive management of cardiovascular risk factors.
2. Wean radial band per protocol.
3. IV diuresis as needed.
4. Resume Eliquis at 10 PM tonight as long as no issues at the left radial access site.
5. Referral for outpatient cardiac rehab.
Ally Mcelroy MD, [facility], [facility]
Copy: Awais Matos, Danika Smith, Nancy Quach
--- NOTE | 2024-12-17 15:38 | PTCARENOTE ---
Patient seen by Dr. Mcelroy and it was decided to do cardiac cath today. Patient did not eat lunch, the patient's daughter Jocelyn was present when patient was sent to the labor contract analyst and will return after procedure.
--- NOTE | 2024-12-17 16:55 | PTCARENOTE ---
Patient returned from the photonic laboratory technician very sleepy but arousable. Radial band in place left wrist, fingers cool to touch with palpable radial pulse. Respirations shallow, pulse ox 89% on RA, placed on 4L NC with pulse ox of 98%. Daughters at the
bedside, call lackey in each.
[2024-12-17 17:22] LABS: Glucose - Point of Care 130 mg/dl (70-99)
--- NOTE | 2024-12-17 17:24 | CON.NEURO ---
Consultation
Order
Date of Consultation: 12/17/24
Requesting Provider: Ally Mcelroy MD
Reason for Consult: Stroke alert
Called in: 17:19
Neurology Consultation Note.
HPI: This is an 84-year-old RH woman who presented to [facility] on 12/16/2024 with tachycardia and chest pain.
Stroke alert was activated due to encephalopathy. According to medical personnel patient developed an acute severe headache as well confusion shortly before the stroke was activated. Ms. Walker endorses headache as well as leg discomfort.
History and exam is limited due to pain and agitation.
Based on EMR Ms. Walker sustained a fall with resultant facial ecchymoses 1 week prior to admission.
CT head wo contrast(12/16/2024)-large right frontal scalp hematoma, atrophy.
VS: 147/59, 59, 22. FS�pending.
EKG(12/17/2024) NSR QTc Int : 420 ms
Ms. Walker was given morphine as well as Reglan due to ongoing headache and nausea
CT head wo contrast(12/17/2024) showed medial right frontal lobe hyperdensity present since 2019 suggesting hemosiderin component.
She has not been able to stay still for CT due to constant agitation.
Brain MRI wo estephanie(03/04/2024) done for word finding difficulties, dizziness, headaches showed moderate diffuse volume loss, moderate leukoaraiosis and empty sella turcica.
According to patient's daughter Ms. Walker has a history of anxiety with panic attacks that she is taking Lexapro for. She does not drive and manages her finances and medications independently.
PSH: CAD, A-Fib, DLP, BMI 40, ESTEPHANIE, ambulatory dysfunction, h/o vertigo
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
All: Penicillin, vitamin D, statins, Zetia
ROS: Limited due to cooperation
General: In moderate distress due to pain. BL raccoon eyes
Mental Status: Alert, attends to examiner. Follows simple requests. Fluent. No hemineglect.
Cranial Nerves: Orthophoric primary gaze. Horizontal EOMs full. Blink to threat bilaterally. No facial weakness or dysarthria.
Motor: Moves all limbs antigravity symmetrically purposefully.
Sensory: Limited sensory exam due to cooperation
Coordination: No dysmetria or tremor.
Gait: deferred
Assessment and Plan:
I. Encephalopathy. Not a candidate for IV thrombolysis due to lack of clear stroke syndrome, recent heparin drip (PT/PTT pending)
II. ESTEPHANIE on Lexapro with likely panic attack
III. Likely posttraumatic headache.
IV. 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
-IV Toradol 30 mg, Reglan 10 mg, Benadryl 25 mg Q8h PRN for moderate to severe headache.
-Zyprexa as needed
-Follow-up CTA head and neck results
-Would defer starting TCA given metabolic side effects
-Will consider routine EEG based on clinical course
-Brain MRI without estephanie
-The case was discussed with patient's daughter
-Will follow
I personally reviewed all radiology and labs along with past medical records pertinent to current medical problems. Total time spent in patient care is 60 minutes.
Thank you for allowing us to participate in the care of this patient. We will continue to follow. Please do not hesitate to contact us with any questions or concerns.
Subjective/Objective
Subjective Data
Date of Service: December 17, 2024
Objective Data
Vital Signs
Temp Pulse Resp BP Pulse Ox
36.6 C 61 16 139/66 95
12/17/24 16:51 12/17/24 13:00 12/17/24 11:47 12/17/24 11:37 12/17/24 11:47
Lab Results
12/17/24 02:08
12/17/24 02:08
APTT 82.9 Sec (23.4-35.0) H 12/17/24 10:25
Sodium 136 mmol/L (135-145) 12/17/24 02:08
Potassium 4.7 mmol/L (3.5-5.1) 12/17/24 02:08
BUN 23 mg/dl (7-17) H 12/17/24 02:08
Glucose 123 mg/dl (70-99) H 12/17/24 02:08
Calcium 9.4 mg/dl (8.4-10.2) 12/17/24 02:08
LDL Cholesterol, Calc 43 mg/dl 12/17/24 02:08
Patient Allergies
ezetimibe [From Zetia] Allergy (Verified 12/16/24 05:31)
Unknown
penicillin G Allergy (Verified 12/16/24 05:31)
Hives- tolerated ceftriaxone in 2017
Aqozzwy-ODF-RyR Reductase Inhibitor [Naazczi-Dkn-Xoj Reductase Inhibitor] Allergy (Verified 12/16/24 05:31)
drowsiness
venom-honey bee Allergy (Verified 12/16/24 05:31)
SWELLING THROAT
vitamin E (d-alpha tocopherol) Allergy (Verified 12/16/24 05:31)
Unknown
Medications
-
Active Medications
Generic Name Dose Route Start Last Admin
Trade Name Freq PRN Reason Stop Dose Admin
Acetaminophen 650 mg 12/16/24 13:18
Acetaminophen 325 Mg Tablet PO 01/13/25 13:17
Q6HPRN PRN
mild pain/ fever>100.5F
Albuterol/Ipratropium 3 ml 12/17/24 11:30
Ipratropium 0.5/Albuterol 3 Mg (3 Ml Ampul) INH
R Q4HPRN PRN
sob or wheezing
Protocol
Amlodipine Besylate 5 mg 12/18/24 08:00
Amlodipine 5 Mg Tablet PO 01/15/25 07:59
DAILY RENETTA
Apixaban 5 mg 12/17/24 22:00
Apixaban (Eliquis) 5 Mg Tablet PO 01/14/25 21:59
BID RENETTA
Ascorbic Acid 500 mg 12/16/24 20:00 12/17/24 10:37
Ascorbic Acid 500 Mg Tablet PO 01/13/25 19:59 500 mg
BID RENETTA Administration
Aspirin 81 mg 12/16/24 22:00 12/17/24 14:40
Aspirin 81 Mg (Enteric Coated) Tablet PO 01/13/25 21:59 81 mg
HS RENETTA Administration
Bisacodyl 10 mg 12/16/24 14:38
Bisacodyl 10 Mg Rectal Suppository RECTAL 01/13/25 14:37
[id number] PRN
constipation
Escitalopram Oxalate 10 mg 12/17/24 08:00 12/17/24 10:36
Escitalopram 10 Mg Tablet PO 01/14/25 07:59 10 mg
DAILY RENETTA Administration
Sodium Chloride 1,000 mls @ 0 mls/hr 12/17/24 16:15
Nss IV 12/18/24 16:09
PER PROTOCOL RENETTA
Protocol
Per Protocol
Methenamine Hippurate 1 gram 12/16/24 20:00 12/17/24 10:36
Methenamine Hippurate 1 Gram Tablet PO 1 gram
BID RENETTA Administration
Metoprolol Succinate 12.5 mg 12/17/24 08:00 12/17/24 10:21
Metoprolol 25 Mg Extended Release Tablet PO 01/14/25 07:59 Not Given
DAILY RENETTA
Nitroglycerin 0.4 mg 12/16/24 14:38
Nitroglycerin 0.4 Mg Sl Tablet SL 01/13/25 14:37
[id number] PRN
chest pain
Polyethylene Glycol 17 grams 12/16/24 14:38
Polyethylene Glycol Powder 17 Grams Packet PO 01/13/25 14:37
DAILYPRN PRN
constipation
Rosuvastatin Calcium 40 mg 12/17/24 08:00 12/17/24 10:36
Rosuvastatin (Crestor) 40 Mg Tablet PO 01/14/25 07:59 40 mg
DAILY RENETTA Administration
Senna/Docusate Sodium 1 tablet 12/16/24 14:38
Docusate W/Senna (Jen-Colace) Tablet PO 01/13/25 14:37
BIDPRN PRN
constipation
Sodium Chloride 0 flush 12/16/24 13:00
Sodium Chloride 0.9% (Flush) Syringe IV 01/13/25 12:59
PER PROTOCOL RENETTA
Vitamin C/Vitamin E 1 cap 12/16/24 20:00 12/17/24 10:37
Vit C/Vit E/Lutein/Min/Millen-3 (Ocuvite) Capsule PO 01/13/25 19:59 1 cap
BID RENETTA Administration
Home Medications
�Medication �Instructions �Recorded
amlodipine 2.5 mg tablet 2.5 mg PO DAILY Blood Pressure 06/13/17
aspirin 81 mg tablet,delayed 81 mg PO HS Blood Clot 06/13/17
release Prevention/Tx
losartan 25 mg tablet 25 mg PO HS Blood Pressure 06/13/17
rosuvastatin 40 mg tablet (Crestor) 40 mg PO DAILY High Cholesterol 06/13/17
nitroglycerin 0.4 mg sublingual 0.4 mg sublingual [id number] PRN 07/24/19
tablet chest pain
vit C 250 mg-vit E 90 mg-zinc 40 1 ea PO BID Supplement 07/24/19
mg-copper 1 [id number]-bivvse
capsule (PreserVision AREDS-2)
apixaban 5 mg tablet (Eliquis) 5 mg PO BID Blood Clot 03/07/24
Prevention/Tx
omega-3 acid ethyl esters 1 gram 1 cap PO BID High Cholesterol 03/07/24
capsule (Lovaza)
ascorbic acid (vitamin C) 500 mg 500 mg PO BID Supplement 12/16/24
tablet
escitalopram oxalate 10 mg tablet 10 mg PO DAILY Mental 12/16/24
Health/Anxiety
methenamine hippurate 1 gram tablet 1 g PO BID Urinary Issue 12/16/24
metoprolol succinate 25 mg 12.5 mg PO DAILY Heart 12/16/24
tablet,extended release 24 hr Disease/Condition
polyethylene glycol 3350 17 gram 17 g PO DAILYPRN PRN constipation 12/16/24
oral powder packet (Miralax)
Vital Signs and Labs
-
Vital Signs and Labs:
Vital Signs
Temp Pulse Resp BP Pulse Ox
36.6 C 61 16 139/66 95
12/17/24 16:51 12/17/24 13:00 12/17/24 11:47 12/17/24 11:37 12/17/24 11:47
Lab Results
12/17/24 02:08
APTT 82.9 Sec (23.4-35.0) H 12/17/24 10:25
Sodium 136 mmol/L (135-145) 12/17/24 02:08
Potassium 4.7 mmol/L (3.5-5.1) 12/17/24 02:08
BUN 23 mg/dl (7-17) H 12/17/24 02:08
Glucose 123 mg/dl (70-99) H 12/17/24 02:08
Calcium 9.4 mg/dl (8.4-10.2) 12/17/24 02:08
LDL Cholesterol, Calc 43 mg/dl 12/17/24 02:08
Medications
-
Medications:
Generic Name Dose Route Start Last Admin
Trade Name Freq PRN Reason Stop Dose Admin
Acetaminophen 650 mg 12/16/24 13:18
Acetaminophen 325 Mg Tablet PO 01/13/25 13:17
Q6HPRN PRN
mild pain/ fever>100.5F
Albuterol/Ipratropium 3 ml 12/17/24 11:30
Ipratropium 0.5/Albuterol 3 Mg (3 Ml Ampul) INH
R Q4HPRN PRN
sob or wheezing
Protocol
Amlodipine Besylate 5 mg 12/18/24 08:00
Amlodipine 5 Mg Tablet PO 01/15/25 07:59
DAILY RENETTA
Apixaban 5 mg 12/17/24 22:00
Apixaban (Eliquis) 5 Mg Tablet PO 01/14/25 21:59
BID RENETTA
Ascorbic Acid 500 mg 12/16/24 20:00 12/17/24 10:37
Ascorbic Acid 500 Mg Tablet PO 01/13/25 19:59 500 mg
BID RENETTA Administration
Aspirin 81 mg 12/16/24 22:00 12/17/24 14:40
Aspirin 81 Mg (Enteric Coated) Tablet PO 01/13/25 21:59 81 mg
HS RENETTA Administration
Bisacodyl 10 mg 12/16/24 14:38
Bisacodyl 10 Mg Rectal Suppository RECTAL 01/13/25 14:37
[id number] PRN
constipation
Escitalopram Oxalate 10 mg 12/17/24 08:00 12/17/24 10:36
Escitalopram 10 Mg Tablet PO 01/14/25 07:59 10 mg
DAILY RENETTA Administration
Sodium Chloride 1,000 mls @ 0 mls/hr 12/17/24 16:15
Nss IV 12/18/24 16:09
PER PROTOCOL RENETTA
Protocol
Per Protocol
Methenamine Hippurate 1 gram 12/16/24 20:00 12/17/24 10:36
Methenamine Hippurate 1 Gram Tablet PO 1 gram
BID RENETTA Administration
Metoprolol Succinate 12.5 mg 12/17/24 08:00 12/17/24 10:21
Metoprolol 25 Mg Extended Release Tablet PO 01/14/25 07:59 Not Given
DAILY RENETTA
Nitroglycerin 0.4 mg 12/16/24 14:38
Nitroglycerin 0.4 Mg Sl Tablet SL 01/13/25 14:37
[id number] PRN
chest pain
Polyethylene Glycol 17 grams 12/16/24 14:38
Polyethylene Glycol Powder 17 Grams Packet PO 01/13/25 14:37
DAILYPRN PRN
constipation
Rosuvastatin Calcium 40 mg 12/17/24 08:00 12/17/24 10:36
Rosuvastatin (Crestor) 40 Mg Tablet PO 01/14/25 07:59 40 mg
DAILY RENETTA Administration
Senna/Docusate Sodium 1 tablet 12/16/24 14:38
Docusate W/Senna (Jen-Colace) Tablet PO 01/13/25 14:37
BIDPRN PRN
constipation
Sodium Chloride 0 flush 12/16/24 13:00
Sodium Chloride 0.9% (Flush) Syringe IV 01/13/25 12:59
PER PROTOCOL RENETTA
Vitamin C/Vitamin E 1 cap 12/16/24 20:00 12/17/24 10:37
Vit C/Vit E/Lutein/Min/Millen-3 (Ocuvite) Capsule PO 01/13/25 19:59 1 cap
BID RENETTA Administration
Home Medications
-
Home Medications
amlodipine 2.5 mg tablet 2.5 mg PO DAILY Blood Pressure 06/13/17
aspirin 81 mg tablet,delayed release 81 mg PO HS Blood Clot Prevention/Tx 06/13/17
losartan 25 mg tablet 25 mg PO HS Blood Pressure 06/13/17
rosuvastatin 40 mg tablet (Crestor) 40 mg PO DAILY High Cholesterol 06/13/17
nitroglycerin 0.4 mg sublingual tablet 0.4 mg sublingual [id number] PRN chest pain 07/24/19
vit C 250 mg-vit E 90 mg-zinc 40 mg-copper 1 eu-tnfixp-irftwt capsule (PreserVision AREDS-2) 1 ea PO BID Supplement 07/24/19
apixaban 5 mg tablet (Eliquis) 5 mg PO BID Blood Clot Prevention/Tx 03/07/24
omega-3 acid ethyl esters 1 gram capsule (Lovaza) 1 cap PO BID High Cholesterol 03/07/24
ascorbic acid (vitamin C) 500 mg tablet 500 mg PO BID Supplement 12/16/24
escitalopram oxalate 10 mg tablet 10 mg PO DAILY Mental Health/Anxiety 12/16/24
methenamine hippurate 1 gram tablet 1 g PO BID Urinary Issue 12/16/24
metoprolol succinate 25 mg tablet,extended release 24 hr 12.5 mg PO DAILY Heart Disease/Condition 12/16/24
polyethylene glycol 3350 17 gram oral powder packet (Miralax) 17 g PO DAILYPRN PRN constipation 12/16/24
[2024-12-17] MEDS: MORPHINE SULFATE 4 MG IV (17:30)
[2024-12-17] MEDS: ZOFRAN 4 MG IV (17:34)
--- NOTE | 2024-12-17 17:40 | W.PN.UPDATE ---
Update Note
Progress Note Update
Interventional cardiology update
Soon after patient was brought back to her room and family was updated, upon speaking to the nurse regarding a different patient, she relayed to me that after receiving is here send back from the heart catheterization lab she had been acting
different than before. I went back to the room to evaluate patient bedside. Initially when she was brought back to her room she was extremely somnolent and then became confused and restless. Following this she had sudden onset frontal headache to
the point where she could not open her eyes with intermittent failure to follow commands. No other focal neurologic abnormalities. Patient is moving all extremities. Given recent fall and the fact that she is now post heart catheterization lab,
we deemed it safe to call stroke alert to rule out any acute neurologic events. Differential also includes headache related to nitroglycerin received during the case or possible sedation related side effects in this elderly female.
The on-call neurologist reached out over the phone and above history was given as neurologist was currently not in-house. Blood sugar was over 100. Daughter is at bedside. Vital signs otherwise stable. Heart rate at 87 bpm, blood pressure
146/87. Pulse ox of 98%. Plan is for stat head imaging. Patient received 2 mg of morphine for pain and 4 mg of Zofran IV stat for nausea.
Ally Mcelroy MD, [facility], [facility]
CC TIme: 43mins
--- NOTE | 2024-12-17 18:32 | W.PN.UPDATE ---
Update Note
Progress Note Update
called to see patient due to intractable severe headache. Pt came with chest pain and falls (periorbital ecchymosis bilaterally). Went to cath today and found to have 1. Severe [place] coronary artery disease. 2. WOODWARD to LAD and a saphenous vein
graft to OM1/diagonal branch are widely patent. 3. Presumed occlusion of saphenous vein graft to RPDA/RPL with 100% proximal RCA chronic total occlusion. [id number]-[id number] collaterals noted.
Apparently was somewhat lethargic post cath but woke up with severe 10/10 headache, intractable and rapid response was called. Neuro involved and pt sent for CT head and CTA (could not do)--pt received 4 mg morphine in total (2mg x 2) plus zofran
without improvement--nitro was given during the cath. Head CT neg for bleed. will change IVF and give NSS 125ml/hr with 1 gm of IV tylenol--family at bedside and pt not at baseline neurologically
VS: 148/54, 57, 97% (4 L NC), 19 RR, afebrile
GEN: pt not following commands--appears in distress
HEENT: bilateral ecchymosis periorbital with NC in place
HEART: RRR + S1, S2
Lungs: CTA B/L
PLAN: no obvious bleeding on CT scan, transfer to ICU, will give NSS 125ml/hr, 1 GM Ofirmev--follow neuro checks--may need to repeat head CT if mental status changes--panic attack/anxiety possible--would continue to HOLD all anticoagulation for now
time spent 40 minutes
[2024-12-17] MEDS: OFIRMEV 100 IV (18:39)
[2024-12-17] MEDS: NSS 1000 IV (18:40)
[2024-12-17 19:04] LABS: % Basophils 0.5 % (0-2); % Eosinophils 2.9 % (0-6); % Immature Granulocytes 0.2 % (0-0.5); % Lymphocytes 23.4 % (20.5-51.1); % Monocytes 8.8 % (1.7-9.3); % Neutrophils 64.2 % (42.2-75.2); Absolute Eosinophils 0.1 10^3/uL (0-0.7); Absolute Monocytes 0.4 10^3/uL (0.1-0.6); Absolute Neutrophils 2.6 10^3/uL (1.4-6.5); Hematocrit 22.3 % (37.0-47.0); Hemoglobin 7.2 g/dL (12.0-16.0); Mean Corp Hgb Conc. 32.3 g/dL (33.0-37.0); Mean Corpuscular Hgb 28.5 pg (27.0-31.0); Mean Corpuscular Volume 88.1 fL (81.0-99.0); Mean Platelet Volume 10.4 fL (7.4-10.4); Nucleated Red Blood Cells % 0 %; Platelet Count 103 10^3/uL (130-400); Red Blood Cell Count 2.53 10^6/uL (4.20-5.40); Red Cell Dist. Width 14.7 % (11.5-14.5); White Blood Cell Count 4.1 10^3/uL (4.8-10.8)
[2024-12-17 19:07] LABS: INR 1.95; PT 22.7 Sec (11.4-14.6)
--- NOTE | 2024-12-17 19:08 | PTCARENOTE ---
Patient became very restless, wanting to get up and use the bathroom 20 mins after returning from [facility]. Placed on bedpan but very frustrated and wanted to get oob. Patient began complaining of a severe headache, could not give a number to her
pain, would not open her eyes, followed simple commands but disoriented to place and time. Dr. Mcelroy in to see the patient and updated, rapid response/stroke alert was called.
[2024-12-17 19:09] LABS: APTT 129.6 Sec (23.4-35.0)
--- NOTE | 2024-12-17 19:10 | RR ---
A Rapid Response was called on this patient, please see Rapid Response form.
[2024-12-17 19:32] LABS: Lactic Acid < 0.5 mmol/L (0.7-2.0)
[2024-12-17 19:48] LABS: Troponin I 0.061 ng/ml
--- NOTE | 2024-12-17 19:49 | PTCARENOTE ---
Patient seen by Dr. Crane, IV fluids given and dose of IV offirmev. Patient appears more comfortable but not answering questions directly and unable to rate her headache, other than saying her head feels 'heavy'. Patient transferred to IMU as
ordered, report given to Diana.
--- NOTE | 2024-12-17 19:58 | PTCARENOTE ---
Received pt from IVU. 2 daughters at bedside. Pt drowsy, opens eyes to verbal, slow to respond. Does not follow commands at this time. PERRLA, moving all extremities, unable to squeeze hands (not following commands), AAOx1, confused, forgetful.
Still c/o SLADE, unable to rate. +pulse L wrist radial band still in place. VSS, HR 50's. bed alarm on, call lackey in reach.
[2024-12-17] MEDS: VITAMIN C PO (20:56)
[2024-12-17] MEDS: OCUVITE SOFTGEL PO (20:56)
[2024-12-17] MEDS: HIPREX PO (20:56)
[2024-12-17 21:04] LABS: % Immature Granulocytes 0.3 % (0-0.5); % Lymphocytes 19.4 % (20.5-51.1); % Monocytes 5.8 % (1.7-9.3); % Neutrophils 72.5 % (42.2-75.2); Absolute Basophils 0.1 10^3/uL (0-0.2); Absolute Eosinophils 0.1 10^3/uL (0-0.7); Absolute Lymphocytes 1.5 10^3/uL (1.2-3.4); Absolute Monocytes 0.5 10^3/uL (0.1-0.6); Absolute Neutrophils 5.7 10^3/uL (1.4-6.5); Hematocrit 38.4 % (37.0-47.0); Hemoglobin 12.8 g/dL (12.0-16.0); Mean Corp Hgb Conc. 33.3 g/dL (33.0-37.0); Mean Corpuscular Hgb 28.6 pg (27.0-31.0); Mean Corpuscular Volume 85.7 fL (81.0-99.0); Mean Platelet Volume 11.8 fL (7.4-10.4); Nucleated Red Blood Cells % 0 %; Platelet Count 170 10^3/uL (130-400); Red Blood Cell Count 4.48 10^6/uL (4.20-5.40); Red Cell Dist. Width 14.6 % (11.5-14.5); White Blood Cell Count 7.8 10^3/uL (4.8-10.8)
[2024-12-17 21:09] LABS: ALT (SGPT) 19 U/L (0-35); AST (SGOT) 35 U/L (14-36); Albumin 4.2 g/dl (3.5-5.0); Alkaline Phosphatase 85 U/L (38-126); Blood Urea Nitrogen 17 mg/dl (7-17); Calcium 8.9 mg/dl (8.4-10.2); Carbon Dioxide 20 mmol/L (22-30); Chloride 103 mmol/L (98-107); Estimated Creatinine Clearance 50 ml/min; Glucose 145 mg/dl (70-99); Potassium 5.1 mmol/L (3.5-5.1); Sodium 135 mmol/L (135-145); Total Bilirubin 0.5 mg/dl (0.2-1.3); Total Protein 6.9 g/dl (6.3-8.2); eGFR > 60.00
[2024-12-18] VITALS (17 sets, daily range): BP systolic 90–168; BP diastolic 33–110; PULSE 55; BMI 41.3
--- NOTE | 2024-12-18 00:35 | PTCARENOTE ---
PRECISION ASSEMBLY INSPECTOR updated on CTA results. PRN tyl x2 put in for pain. Pt holding head, c/o pain, unable to rate. No other new orders. will monitor.
Grandson visited for update.
[2024-12-18] MEDS: OFIRMEV 100 IV (00:47)
[2024-12-18 05:37] LABS: % Basophils 0.7 % (0-2); % Eosinophils 0.1 % (0-6); % Immature Granulocytes 0.3 % (0-0.5); % Lymphocytes 15.7 % (20.5-51.1); % Monocytes 5.3 % (1.7-9.3); % Neutrophils 77.9 % (42.2-75.2); Absolute Basophils 0.1 10^3/uL (0-0.2); Absolute Lymphocytes 1.4 10^3/uL (1.2-3.4); Absolute Monocytes 0.5 10^3/uL (0.1-0.6); Absolute Neutrophils 6.8 10^3/uL (1.4-6.5); Hemoglobin 12.1 g/dL (12.0-16.0); Mean Corp Hgb Conc. 33.6 g/dL (33.0-37.0); Mean Corpuscular Volume 86.3 fL (81.0-99.0); Mean Platelet Volume 12.4 fL (7.4-10.4); Nucleated Red Blood Cells % 0 %; Platelet Count 179 10^3/uL (130-400); Red Blood Cell Count 4.17 10^6/uL (4.20-5.40); Red Cell Dist. Width 14.6 % (11.5-14.5); White Blood Cell Count 8.7 10^3/uL (4.8-10.8)
[2024-12-18 06:00] LABS: Blood Urea Nitrogen 17 mg/dl (7-17); Calcium 9.2 mg/dl (8.4-10.2); Carbon Dioxide 22 mmol/L (22-30); Chloride 103 mmol/L (98-107); Estimated Creatinine Clearance 50 ml/min; Glucose 154 mg/dl (70-99); Potassium 5.1 mmol/L (3.5-5.1); Sodium 135 mmol/L (135-145); eGFR > 60.00
[2024-12-18] MEDS: NSS 1000 IV ×2 (06:27→18:10)
[2024-12-18] MEDS: HIPREX PO (08:33)
[2024-12-18] MEDS: CRESTOR PO (08:33)
[2024-12-18] MEDS: OCUVITE SOFTGEL PO (08:34)
[2024-12-18] MEDS: LEXAPRO PO (08:34)
[2024-12-18] MEDS: TOPROL XL PO (08:34)
[2024-12-18] MEDS: VITAMIN C PO (08:34)
--- NOTE | 2024-12-18 11:20 | PN.CDI ---
CDI
- -
CDI:
Physician Documentation Request
Admit Date: 12/16/24 13:17
Dear Doctor Zelalem,
Please review the following and provide your response in the progress notes.
Clinical Indicators:
Height: 4 ft 11 in
Weight: 204 5.8 oz
BMI:41.3
If possible, please provide an associated diagnosis related to the abnormal BMI, such as:
BMI > or = to 40
Overweight
Obesity:
Due to excess calories
Drug induced
Due to other cause
Severe or morbid obesity:
With alveolar hypoventilation (Obesity hypoventilation syndrome)
Without alveolar hypoventilation
- Other
Use of terms such as suspected, likely, concern for, or probable (associated with a specific diagnosis that is being evaluated, monitored, or treated as if it exists) are acceptable and can be coded in the inpatient setting, when documented at the
time of discharge.
Thank you,
Kourtney Hathaway RN
CDI Specialist
[place] [facility]
Please use your independent medical judgment in providing your response.
[2024-12-18] MEDS: TYLENOL 650 MG PO (12:24)
[2024-12-18] MEDS: ATIVAN 0.5 MG IV (12:59)
--- NOTE | 2024-12-18 13:16 | W.PN.HOSP.TC ---
Addendum entered and electronically signed by Zachariah Masterson MD 12/18/24 17:37:
Paroxysmal A-fib
Holding Eliquis at this time
Restart on 12/22/2024 per discussion with neurology
Addendum entered and electronically signed by Zachariah Masterson MD 12/18/24 16:08:
discussed with neurology; Ok to restart Eliquis on 12/22/24
Original Note:
Today's Communication/Plan
-
Monitor vitals
See plan
MRI pending
Continue to monitor mental status
Restart Eliquis when okay with neurology and cardiology
Continue with metoprolol, amlodipine
Speech evaluation; if pass then dc fluids and order diet
Discussed with daughter at bedside
Assessment / Plan
Assessment / Plan
General: Well Nourished and No Apparent Distress
HEENT: Anicteric and Moist mucous membranes,+ ecchymosis
Respiratory: Clear and Non Labored Respirations; No Wheezes or Crackles
Cardiac: S1/S2 and Regular Rhythm
GI: Soft, Non Tender, Non Distended and Normal Bowel Sounds
Genito-urinary: No Mitchell
Musculoskeletal: No Edema
Neuro: Awake, Alert, Oriented and AO x 3
Psych: Calm and Intact Judgment/Insight
Chest pain
Suspected secondary to coronary artery disease
History of CAD status post 5 vessel CABG
Continue with heparin gtt
Hold Eliquis for now; restart when ok with neurology
Troponin noted
Echocardiogram 12/16 without significant change
Status post cardiac catheterization 12/17. Severe [place] coronary artery disease. Cardiology recommended medical management.
Continue aspirin
Nitro as needed
Continue metoprolol
EKG with sinus bradycardia
Stroke alert postcardiac catheterization 12/17
At that time patient had severe headache and was encephalopathic. suspect possibility of toxic metabolic encephalopathy secondary to anesthesia
Neurology following
MRI pending
CT without any clear bleeding. Does have suspected AV malformation.
Speech evaluation, if passes then DC further fluids and start diet
Given recent fall, these symptoms could be also possible postconcussive syndrome
Persistent large right frontal scalp hematoma secondary to mechanical fall last week
Continue to monitor
CT noted
History of hypertension
Continue amlodipine, hold losartan
Hyperlipidemia
Continue statin
Depression
Continue with home meds
Morbid obesity secondary to excess calorie
DVT prophylaxis
SCD's for now; restart Eliquis when okay with cardiology and neurology
Full code, discussed on admission
Anticipated Discharge: 24 - 48 hours
Subjective/Interval History
-
Date of Service: December 18, 2024
has mild headache
Objective Data
-
Labs:
Laboratory Results
12/18/24
05:21
WBC 8.7
Hgb 12.1
Hct 36.0 L
Plt Count 179
Sodium 135
Potassium 5.1
Chloride 103
Carbon Dioxide 22
BUN 17
Creatinine 0.8
Glucose 154 H
Calcium 9.2
Vital Signs:
Vital Signs
Temp Pulse Resp BP Pulse Ox
98.2 F 50 16 109/54 99
12/18/24 11:30 12/18/24 07:18 12/18/24 07:18 12/18/24 07:18 12/18/24 07:18
I&O
12/17/24 12/18/24 12/19/24
06:59 06:59 06:59
Intake Total 110 / 110
Output Total 250 / 250
Balance 110 / 110 -250 / -250
--- NOTE | 2024-12-18 13:34 | CM ---
Patient with Dx chest pain who is s/p cath 12/17, Stroke alert postcardiac cath, Persistent large right frontal scalp hematoma secondary to mechanical fall last week. Plan MRI today. Room air. NPO/IVF. ST Eval pending. Receiving Ofirmev gtt.
PT/OT Evals pending.
CM continuing to follow.
Plan follow up after seen by PT/OT.
--- NOTE | 2024-12-18 13:54 | W.PN.NEURO.1 ---
Today's Communication / Plan
-
.
Subjective/Objective
Subjective Data
Date of Service: December 18, 2024
Neurology follow-up note.
24-hour events. Transiently hypotensive down to 90/60 in the morning, bradycardic down to 50, afebrile.
Ms. Walker notices improvement of her headache. No reports of motor, sensory or visual deficits.
Brain MRI�acute left Tammi infarct
CTA head and neck�no hemodynamically significant stenosis
LDL 43, A1C-6.1.
PSH: CAD, A-Fib, DLP, BMI 40, ESTEPHANIE, ambulatory dysfunction, h/o vertigo
PSH: POSTIE(12/17/2024), CABG, appendectomy,
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
All: Penicillin, vitamin D, statins, Zetia
ROS: Negative for headache, weakness, change in vision
General: No acute distress.
Mental Status: Alert, oriented to name, age, date of , month, year. Mild expressive aphasia. Follows simple requests consistently.
Cranial Nerves: Orthophoric primary gaze. Horizontal EOMs full. Blink to threat bilaterally. No facial weakness or dysarthria. Hearing is preserved
Motor: No approximator or leg drift
Coordination: No dysmetria or tremor.
Gait: deferred
Assessment and Plan:
I. 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 Was a candidate not TNK due to PT elevation. Based on OPTIMAS trial published in the Lancet on September 20, 2024) the rates of symptomatic ICH were similarly low for both early (<4 days
from stroke onset) and late (>5 days) DOAC administration, and the composite outcome of stroke or hemorrhage�with early initiation was marginally lower�at 30 but not 90 days. It is remains unclear whether earlier DOAC treatment reduces the risk of
recurrent ischemic stroke.
II. Paroxysmal A-fib
III. ESTEPHANIE
-Avoid cerebral hypoperfusion
-Cardiology follow-up
-Continue aspirin 81 mg once a day.
-Please recall neurology service with any questions or concerns
-DVT prophylaxis
I personally reviewed all radiology and labs along with past medical records pertinent to current medical problems. Total time spent in patient care is 35 minutes.
Thank you for allowing us to participate in the care of this patient. Please do not hesitate to contact us with any questions or concerns
Objective Data
Vital Signs
Temp Pulse Resp BP Pulse Ox
36.8 C 50 16 109/54 99
12/18/24 11:30 12/18/24 07:18 12/18/24 07:18 12/18/24 07:18 12/18/24 07:18
Lab Results
12/18/24 05:21
12/18/24 05:21
PT 22.7 Sec (11.4-14.6) H 12/17/24 18:49
INR 1.95 12/17/24 18:49
APTT 129.6 Sec (23.4-35.0) H 12/17/24 18:49
Sodium 135 mmol/L (135-145) 12/18/24 05:21
Potassium 5.1 mmol/L (3.5-5.1) 12/18/24 05:21
BUN 17 mg/dl (7-17) 12/18/24 05:21
Glucose 154 mg/dl (70-99) H 12/18/24 05:21
Calcium 9.2 mg/dl (8.4-10.2) 12/18/24 05:21
LDL Cholesterol, Calc 43 mg/dl 12/17/24 02:08
Patient Allergies
ezetimibe [From Zetia] Allergy (Verified 12/16/24 05:31)
Unknown
penicillin G Allergy (Verified 12/16/24 05:31)
Hives- tolerated ceftriaxone in 2017
Qgqksec-DKQ-OnK Reductase Inhibitor [Gzlemzj-Tri-Deh Reductase Inhibitor] Allergy (Verified 12/16/24 05:31)
drowsiness
venom-honey bee Allergy (Verified 12/16/24 05:31)
SWELLING THROAT
vitamin E (d-alpha tocopherol) Allergy (Verified 12/16/24 05:31)
Unknown
Vital Signs and Labs
-
Vital Signs and Labs:
Vital Signs
Temp Pulse Resp BP Pulse Ox
36.8 C 50 16 109/54 99
12/18/24 11:30 12/18/24 07:18 12/18/24 07:18 12/18/24 07:18 12/18/24 07:18
Lab Results
12/18/24 05:21
12/18/24 05:21
PT 22.7 Sec (11.4-14.6) H 12/17/24 18:49
INR 1.95 12/17/24 18:49
APTT 129.6 Sec (23.4-35.0) H 12/17/24 18:49
Sodium 135 mmol/L (135-145) 12/18/24 05:21
Potassium 5.1 mmol/L (3.5-5.1) 12/18/24 05:21
BUN 17 mg/dl (7-17) 12/18/24 05:21
Glucose 154 mg/dl (70-99) H 12/18/24 05:21
Calcium 9.2 mg/dl (8.4-10.2) 12/18/24 05:21
LDL Cholesterol, Calc 43 mg/dl 12/17/24 02:08
Medications
-
Medications:
Generic Name Dose Route Start Last Admin
Trade Name Freq PRN Reason Stop Dose Admin
Acetaminophen 650 mg 12/16/24 13:18 12/18/24 12:24
Acetaminophen 325 Mg Tablet PO 01/13/25 13:17 650 mg
Q6HPRN PRN Administration
mild pain/ fever>100.5F
Albuterol/Ipratropium 3 ml 12/17/24 11:30
Ipratropium 0.5/Albuterol 3 Mg (3 Ml Ampul) INH
R Q4HPRN PRN
sob or wheezing
Protocol
Amlodipine Besylate 5 mg 12/18/24 08:00 12/18/24 08:34
Amlodipine 5 Mg Tablet PO 01/15/25 07:59 Not Given
DAILY RENETTA
Apixaban 5 mg 12/17/24 22:00
Apixaban (Eliquis) 5 Mg Tablet PO 01/14/25 21:59
BID RENETTA
Ascorbic Acid 500 mg 12/16/24 20:00 12/18/24 08:34
Ascorbic Acid 500 Mg Tablet PO 01/13/25 19:59 Not Given
BID RENETTA
Aspirin 81 mg 12/16/24 22:00 12/17/24 14:40
Aspirin 81 Mg (Enteric Coated) Tablet PO 01/13/25 21:59 81 mg
HS RENETTA Administration
Bisacodyl 10 mg 12/16/24 14:38
Bisacodyl 10 Mg Rectal Suppository RECTAL 01/13/25 14:37
[id number] PRN
constipation
Escitalopram Oxalate 10 mg 12/17/24 08:00 12/18/24 08:34
Escitalopram 10 Mg Tablet PO 01/14/25 07:59 Not Given
DAILY RENETTA
Sodium Chloride 1,000 mls @ 100 mls/hr 12/17/24 18:30 12/18/24 06:27
Nss IV 1,000 mls
.Q10H RENETTA Administration
Acetaminophen 1,000 mg in 100 mls @ 400 mls/hr 12/18/24 00:39 12/18/24 00:47
Ofirmev IV 100 mls
Q6HPRN PRN Administration
mild pain/fever>100.4/headache
Protocol
Lorazepam 0.5 mg 12/18/24 12:05 12/18/24 12:59
Lorazepam 2 Mg/Ml Vial IV 01/15/25 12:04 0.5 mg
ONCE PRN Administration
Prior to MRI
Methenamine Hippurate 1 gram 12/16/24 20:00 12/18/24 08:33
Methenamine Hippurate 1 Gram Tablet PO Not Given
BID RENETTA
Metoprolol Succinate 12.5 mg 12/17/24 08:00 12/18/24 08:34
Metoprolol 25 Mg Extended Release Tablet PO 01/14/25 07:59 Not Given
DAILY RENETTA
Morphine Sulfate 2 mg 12/17/24 18:43
Morphine 2 Mg/Ml Syringe IV
ONCE PRN
IF NEEDED IN CT X1 DOSE
Nitroglycerin 0.4 mg 12/16/24 14:38
Nitroglycerin 0.4 Mg Sl Tablet SL 01/13/25 14:37
[id number] PRN
chest pain
Polyethylene Glycol 17 grams 12/16/24 14:38
Polyethylene Glycol Powder 17 Grams Packet PO 01/13/25 14:37
DAILYPRN PRN
constipation
Rosuvastatin Calcium 40 mg 12/17/24 08:00 12/18/24 08:33
Rosuvastatin (Crestor) 40 Mg Tablet PO 01/14/25 07:59 Not Given
DAILY RENETTA
Senna/Docusate Sodium 1 tablet 12/16/24 14:38
Docusate W/Senna (Jen-Colace) Tablet PO 01/13/25 14:37
BIDPRN PRN
constipation
Sodium Chloride 0 flush 12/16/24 13:00
Sodium Chloride 0.9% (Flush) Syringe IV 01/13/25 12:59
PER PROTOCOL RENETTA
Sodium Chloride 0.25 ml 12/18/24 12:07
Nss (Pf) 10 Ml Vial For Ativan 0.5 Mg Dose IV 01/15/25 12:06
ONCE PRN PRN
IV LORAZEPAM DILUTION
Vitamin C/Vitamin E 1 cap 12/16/24 20:00 12/18/24 08:34
Vit C/Vit E/Lutein/Min/[place]-3 (Ocuvite) Capsule PO 01/13/25 19:59 Not Given
BID RENETTA
Home Medications
-
Home Medications
amlodipine 2.5 mg tablet 2.5 mg PO DAILY Blood Pressure 06/13/17
aspirin 81 mg tablet,delayed release 81 mg PO HS Blood Clot Prevention/Tx 06/13/17
losartan 25 mg tablet 25 mg PO HS Blood Pressure 06/13/17
rosuvastatin 40 mg tablet (Crestor) 40 mg PO DAILY High Cholesterol 06/13/17
nitroglycerin 0.4 mg sublingual tablet 0.4 mg sublingual [id number] PRN chest pain 07/24/19
vit C 250 mg-vit E 90 mg-zinc 40 mg-copper 1 [id number]-pdnjhc capsule (PreserVision AREDS-2) 1 ea PO BID Supplement 07/24/19
apixaban 5 mg tablet (Eliquis) 5 mg PO BID Blood Clot Prevention/Tx 03/07/24
omega-3 acid ethyl esters 1 gram capsule (Lovaza) 1 cap PO BID High Cholesterol 03/07/24
ascorbic acid (vitamin C) 500 mg tablet 500 mg PO BID Supplement 12/16/24
escitalopram oxalate 10 mg tablet 10 mg PO DAILY Mental Health/Anxiety 12/16/24
methenamine hippurate 1 gram tablet 1 g PO BID Urinary Issue 12/16/24
metoprolol succinate 25 mg tablet,extended release 24 hr 12.5 mg PO DAILY Heart Disease/Condition 12/16/24
polyethylene glycol 3350 17 gram oral powder packet (Miralax) 17 g PO DAILYPRN PRN constipation 12/16/24
--- NOTE | 2024-12-18 14:47 | W.PN.CARDCBS ---
Today's Communication / Plan
-
Hold amlodipine
Parameters placed on Toprol
Eliquis when okay with neurology
Awaiting MRI report
Impression / Plan
-
PCP: Dr. Quach
Cardiology: Dr. Danika Smith
GI: Dr. Horta
Impression:
Change in mental status (neurology note acute MCA stroke, MRI report pending)
Chest pain and elevated Troponin 12/16/24, CAD cardiac catheterization 11/27/2024 continue medical management
ACS
Elevated Troponin
CAD s/p CABG with WOODWARD to LAD, SVG to PDA and RPL and SVG to Diag-11 and OM-1 2003
Paroxysmal A-fib/tach 08/21/2023
Chronic Eliquis OAC
HTN
Hyperlipidemia
Recent ER visit for fall 12/11/2024
Echo 09/08/2024: Small LV without WMA and EF preserved at 68%, peak LVOT gradient 13 mmHg at rest and 14 mmHg with Valsalva, stage II diastolic dysfunction, normal RV size and function, mild MR, no aortic regurgitation
Echo 12/16/2024: EF 55 to 60%, no WMA, posterior MAC with mild MR, aortic sclerosis without stenosis, moderate to severe TR with PAP 36 mmHg
Cardiac catheterization 12/17/2024 The left main artery is a large-caliber vessel with 30 to 40% distal tapering. Mid to distal LAD has a focal 80% stenosis just proximal to the touchdown of the WOODWARD graft which is widely patent. The left circumflex
artery is a medium caliber vessel with a calcified 80 to 90% ostial to proximal left circumflex stenosis with left to left and left to right collaterals. There is a patent saphenous vein graft to the OM territory. RCA vessel with 100% chronic total
occlusion in the proximal portion with [id number] collaterals.
1. WOODWARD to LAD: Widely patent.
2. Saphenous vein graft to OM1 and diagonal branch: Widely patent
3. Saphenous vein graft to RPDA/RPL branches: Assumed to be occluded given we could not selectively engage with it despite utilizing JR, 3 DRC, MPA, AL-1 diagnostic catheters and performing an aortogram.
Plan:
-She recognized me today and had appropriate conversation. She feels fatigued. Headache is improving.
-Notation neurology note about acute MCA stroke. Blood pressure has been on the low side and heart rate has been on the low side. Will place parameters for holding Toprol and I have held amlodipine.
-No recurrence of CP overnight. Troponin peaked at 0.172.
-Echo completed 12/16/2024 was overall unchanged from echo in August and shows preserved EF without new WMA
-Catheterization noted. Presumed occluded SVG to right posterior descending artery/RPL. Continue medical management.
-ECG and telemetry remains stable
-History of paroxysmal atrial fibrillation and remains in sinus rhythm. Last dose of Eliquis was 12/15/24 PM resume once okay with neurology
-LDL 43. Outpatient dose of Crestor 40 mg daily should be continued
-Continue physical therapy.
-Status post recent fall with ecchymosis. Follow-up.
HPI: Patient came to ER this morning with an episode of palpitations and chest pain at home and is being admitted with elevated troponin and cardiology has been consulted. Patient has a history of CAD status post CABG in 2003. Her last stress
test was a dobutamine SC 01/17/2022 that was negative for ischemia at 82% MPHR. Patient was seen in the office on 10/02/2024 and labs and recent echo were felt to be stable. Patient called our office on 11/25/2023 to report that her Apple Watch showed
an HR of 40 overnight and while the patient was reassured that this can happen with sleep she was also told that she could start holding her outpatient dose of Toprol XL 12.5 mg daily. Patient then had a trip and fall with facial ecchymoses and
came to ER on 12/11/[address] of the head was negative and her Eliquis has been continued. Patient went to bed last night feeling fine, but awoke this morning at about 3 AM feeling as though her heart was racing and having CP described
abscess SSCP radiating up into her teeth and jaw. Patient took NTG SL x 1 at home with minimal relief in pain. She took a second NTG SL x 1 a few minutes later and her pain started to improve, but did not completely resolve and so she called 911.
Her chest pain improved on the way to the ER and she has not had recurrence of pain. Initial troponin undetectable and then up to 0.1. ECGs here in the ER have shown sinus tachycardia without evidence of A-fib, but patient apparently has a history
of A-fib previously noted on Apple Watch and has been on Eliquis for about 2 years.
Progress Note - Sheet Sorter
Subjective
Date of Service: December 18, 2024
Headache he is improving. Ecchymosis noted. She feels fatigued but no other current symptoms. She denies chest pain
Objective
Labs:
12/18/24 05:21
12/18/24 05:21
Labs
Hgb 12.1 g/dL (12.0-16.0) 12/18/24 05:21
Hct 36.0 % (37.0-47.0) L 12/18/24 05:21
Plt Count 179 10^3/uL (130-400) 12/18/24 05:21
PT 22.7 Sec (11.4-14.6) H 12/17/24 18:49
INR 1.95 12/17/24 18:49
APTT 129.6 Sec (23.4-35.0) H 12/17/24 18:49
Sodium 135 mmol/L (135-145) 12/18/24 05:21
Potassium 5.1 mmol/L (3.5-5.1) 12/18/24 05:21
BUN 17 mg/dl (7-17) 12/18/24 05:21
Creatinine 0.8 mg/dL (0.6-1.0) 12/18/24 05:21
Glucose 154 mg/dl (70-99) H 12/18/24 05:21
Troponins
12/16/24 12/16/24 12/16/24
05:37 08:54 12:41
Troponin I < 0.012 0.102 H* D 0.166 H* D
12/16/24 12/16/24 12/16/24
16:47 17:30 19:36
Troponin I Cancelled 0.172 H* 0.169 H*
12/17/24
18:49
Troponin I 0.061 H*
Vital Signs and I&O:
Vital Signs
Temp Pulse Resp BP Pulse Ox
98.2 F 50 16 109/54 99
12/18/24 11:30 12/18/24 07:18 12/18/24 07:18 12/18/24 07:18 12/18/24 07:18
Vital Signs
Temp Pulse Resp BP Pulse Ox
98.2 F 50 16 109/54 99
12/18/24 11:30 12/18/24 07:18 12/18/24 07:18 12/18/24 07:18 12/18/24 07:18
Intake & Output
12/16/24 12/17/24 12/18/24 12/19/24
06:59 06:59 06:59 06:59
Intake Total 110 / 110
Output Total 250 / 250
Balance 110 / 110 -250 / -250
Physical Exam
Physical Exam
General: Elderly woman in bed
Significant ecchymosis around eyes. Lump on head which is improving
Heart: Distant heart sound I, RRR, no murmurs, No S3, S4, no rubs.
Lungs: Coarse anterior breath sounds
Extremities: No clubbing, cyanosis or edema bilaterally.
Neuro: Awake and answering question
--- NOTE | 2024-12-18 15:40 | PTOTSP ---
Speech Language Pathology
Pt would benefit from speech/language evaluation given acute infarct noted on MRI this date. However, pt was given Ativan prior to MRI, so will hold on evaluation this date. Word-finding difficulties noted at times.
Seen for clinical bedside swallow evaluation. Pt reported occasional esophageal difficulty with items such as rice sticking in mid chest. P.O. trials of puree, regular solids, and thin liquids provided. Adequate mastication, bolus formation, and
A-P transit noted. No overt signs of aspiration. Pt with facial grimacing x1 with sip of water after applesauce with reports of stasis in esophagus, which cleared.
Recommend:
(1) Continue regular solids/thin liquids
(2) General aspiration precautions
(3) Meds as tolerated
(4) Consider OP GI consult
(5) Further SHAKER TENDER services not indicated. Will follow for speech/language evaluation given MRI results
--- NOTE | 2024-12-18 20:09 | PTCARENOTE ---
Addendum entered by Lily Bean RN 12/18/24 20:16:
left wrist puncture site with dressing intact. pts hand pink and warm with strong radial pulse palpated
Original Note:
day shift note. this am pt lethargic, drowsy and only nodding head to questions. da family came in pt more awake. pt stated she could not do mri unless she was given a sedative. order given for ativan which was given pre mri. post mri pr drowsy
and sleeping most of afternoon. mri results discussed with familyby dr Masterson. at dinner time pt awake and oriented x 3 conversant. pt with clear speech amd occasionally has trouble finding a word(which family says has been going on for a while) pt
has poor vision d/t macular degeneration but is able to read large text without difficulty. no drift of limbs. daughter at bedside. iv infusing. pt seen by speech and cleared for diet. ate more than half of dinner.
[2024-12-18] MEDS: HIPREX 1 GRAM PO (21:52)
[2024-12-18] MEDS: OCUVITE SOFTGEL 1 CAP PO (21:52)
[2024-12-18] MEDS: ASPIR LOW (ENTERIC COATED) 81 MG PO (21:52)
[2024-12-18] MEDS: VITAMIN C 500 MG PO (21:52)
[2024-12-18 22:27] LABS: Urine Albumin 1+ (Neg - Trace); Urine Bilirubin Negative (Negative); Urine Character Clear (Clear); Urine Color Yellow; Urine Glucose Negative (Negative); Urine Ketone Negative (Negative); Urine Leukocyte Negative (Negative); Urine Nitrite Negative (Negative); Urine Occult Blood Negative (Negative); Urine Specific Gravity 1.015 (<1.030); Urine Urobilinogen Negative (Neg - 1+)
[2024-12-18 22:36] LABS: Urine Squamous Cell 16-20 /LPF (Few)
[2024-12-18 22:37] LABS: Urine Red Blood Cell 0-2 /HPF (0-2); Urine White Cell 0-2 /HPF (0-5)
--- NOTE | 2024-12-18 23:14 | PTCARENOTE ---
Caring for pt overnight. aaox3, pleasant. Major difference between last night & tonight. See Neuro checks and NIH. NIH score 1 for L upper visual field effected. Pt also stated she has expressive aphasia from time to time but this nurse did not
notice any. Pt denies any pain. Q2T. Took pills whole with water. IVF running. NSR/SB. Remains RA, no SOB. Pt sleeping at this time. Will continue to monitor.
[2024-12-19] VITALS (14 sets, daily range): BP systolic 105–159; BP diastolic 39–78; PULSE 58–63; O2SAT 92; BMI 41.7
[2024-12-19] MEDS: NSS 1000 IV (02:51)
[2024-12-19 04:47] LABS: % Basophils 0.9 % (0-2); % Eosinophils 5.4 % (0-6); % Immature Granulocytes 0.1 % (0-0.5); % Lymphocytes 26.1 % (20.5-51.1); % Monocytes 10.4 % (1.7-9.3); % Neutrophils 57.1 % (42.2-75.2); Absolute Basophils 0.1 10^3/uL (0-0.2); Absolute Eosinophils 0.4 10^3/uL (0-0.7); Absolute Monocytes 0.8 10^3/uL (0.1-0.6); Absolute Neutrophils 4.3 10^3/uL (1.4-6.5); Hematocrit 32.6 % (37.0-47.0); Hemoglobin 10.7 g/dL (12.0-16.0); Mean Corp Hgb Conc. 32.8 g/dL (33.0-37.0); Mean Corpuscular Hgb 29.1 pg (27.0-31.0); Mean Corpuscular Volume 88.6 fL (81.0-99.0); Mean Platelet Volume 12.2 fL (7.4-10.4); Nucleated Red Blood Cells % 0 %; Platelet Count 169 10^3/uL (130-400); Red Blood Cell Count 3.68 10^6/uL (4.20-5.40); White Blood Cell Count 7.6 10^3/uL (4.8-10.8)
[2024-12-19 05:12] LABS: Blood Urea Nitrogen 13 mg/dl (7-17); Calcium 8.3 mg/dl (8.4-10.2); Carbon Dioxide 25 mmol/L (22-30); Chloride 106 mmol/L (98-107); Glucose 98 mg/dl (70-99); Potassium 4.4 mmol/L (3.5-5.1); Sodium 138 mmol/L (135-145)
[2024-12-19 05:23] LABS: Estimated Creatinine Clearance 50 ml/min; eGFR > 60.00
--- NOTE | 2024-12-19 08:54 | W.PN.CARDCBS ---
Today's Communication / Plan
-
RECOMMENDATIONS:
-Dr. Masterson and neurology to discuss BP medications. It looks as if blood pressures are better today. Dr. Smith held amlodipine yesterday for lowish blood pressures. Overall readings seem better today and should discuss timing of restarting
amlodipine AND apixaban with neurology
Impression / Plan
-
PCP: Dr. Quach
Cardiology: Dr. Danika Smith
GI: Dr. Horta
Impression:
-Change in mental status (neurology note acute MCA stroke, MRI report pending)
-Chest pain and elevated Troponin 12/16/24, CAD cardiac catheterization 11/27/2024 continue medical management
-Elevated Troponin
-CAD s/p CABG with WOODWARD to LAD, SVG to PDA and RPL and SVG to Diag-11 and OM-1 2003
-Paroxysmal A-fib/tach 08/21/2023
-Chronic Eliquis OAC
-HTN
-Hyperlipidemia
-Recent ER visit for fall 12/11/2024
Echo 09/08/2024: Small LV without WMA and EF preserved at 68%, peak LVOT gradient 13 mmHg at rest and 14 mmHg with Valsalva, stage II diastolic dysfunction, normal RV size and function, mild MR, no aortic regurgitation
Echo 12/16/2024: EF 55 to 60%, no WMA, posterior MAC with mild MR, aortic sclerosis without stenosis, moderate to severe TR with PAP 36 mmHg
Cardiac catheterization 12/17/2024 The left main artery is a large-caliber vessel with 30 to 40% distal tapering. Mid to distal LAD has a focal 80% stenosis just proximal to the touchdown of the WOODWARD graft which is widely patent. The left circumflex
artery is a medium caliber vessel with a calcified 80 to 90% ostial to proximal left circumflex stenosis with left to left and left to right collaterals. There is a patent saphenous vein graft to the OM territory. RCA vessel with 100% chronic total
occlusion in the proximal portion with [id number] collaterals.
1. WOODWARD to LAD: Widely patent.
2. Saphenous vein graft to OM1 and diagonal branch: Widely patent
3. Saphenous vein graft to RPDA/RPL branches: Assumed to be occluded given we could not selectively engage with it despite utilizing JR, 3 DRC, MPA, AL-1 diagnostic catheters and performing an aortogram.
Plan:
-Coronary disease has patent WOODWARD-LAD and SVG-OM/diag is patent. SVG-RCA territory is 100%
-She seems appropriate in conversation. Headache earlier this am.
-Acute MCA stroke. Blood pressure has been on the low side and heart rate has been on the low side and Dr. Smith placed parameters on holding Toprol and held amlodipine yesterday. Blood pressures seem reasonable today. IF okay with neurology
then I would resume amlodipine. TT Dr. Masterson to coordinate with neurology
-No recurrence of CP overnight. Troponin peaked at 0.172.
-Echo completed 12/16/2024 was overall unchanged from echo in August and shows preserved EF without new WMA
-Catheterization noted. Presumed occluded SVG to right posterior descending artery/RPL. Continue medical management.
-ECG and telemetry remains stable
-History of paroxysmal atrial fibrillation and remains in sinus rhythm. Last dose of Eliquis was 12/15/24 PM resume once okay with neurology
-LDL 43. Outpatient dose of Crestor 40 mg daily should be continued
-Continue physical therapy.
-Status post recent fall with ecchymosis. Follow-up.
HPI: Patient came to ER this morning with an episode of palpitations and chest pain at home and is being admitted with elevated troponin and cardiology has been consulted. Patient has a history of CAD status post CABG in 2003. Her last stress
test was a dobutamine SC 01/17/2022 that was negative for ischemia at 82% MPHR. Patient was seen in the office on 10/02/2024 and labs and recent echo were felt to be stable. Patient called our office on 11/25/2023 to report that her Apple Watch showed
an HR of 40 overnight and while the patient was reassured that this can happen with sleep she was also told that she could start holding her outpatient dose of Toprol XL 12.5 mg daily. Patient then had a trip and fall with facial ecchymoses and
came to ER on 12/11/[address] of the head was negative and her Eliquis has been continued. Patient went to bed last night feeling fine, but awoke this morning at about 3 AM feeling as though her heart was racing and having CP described
abscess SSCP radiating up into her teeth and jaw. Patient took NTG SL x 1 at home with minimal relief in pain. She took a second NTG SL x 1 a few minutes later and her pain started to improve, but did not completely resolve and so she called 911.
Her chest pain improved on the way to the ER and she has not had recurrence of pain. Initial troponin undetectable and then up to 0.1. ECGs here in the ER have shown sinus tachycardia without evidence of A-fib, but patient apparently has a history
of A-fib previously noted on Apple Watch and has been on Eliquis for about 2 years.
Progress Note - Correctional Casework Specialist
Subjective
Date of Service: December 19, 2024
She is feeling more back to normal
Objective
Labs:
12/19/24 04:18
12/19/24 04:18
Labs
Hgb 10.7 g/dL (12.0-16.0) L 12/19/24 04:18
Hct 32.6 % (37.0-47.0) L 12/19/24 04:18
Plt Count 169 10^3/uL (130-400) 12/19/24 04:18
PT 22.7 Sec (11.4-14.6) H 12/17/24 18:49
INR 1.95 12/17/24 18:49
APTT 129.6 Sec (23.4-35.0) H 12/17/24 18:49
Sodium 138 mmol/L (135-145) 12/19/24 04:18
Potassium 4.4 mmol/L (3.5-5.1) 12/19/24 04:18
BUN 13 mg/dl (7-17) 12/19/24 04:18
Creatinine 0.8 mg/dL (0.6-1.0) 12/19/24 04:18
Glucose 98 mg/dl (70-99) 12/19/24 04:18
Troponins
12/16/24 12/16/24 12/16/24
08:54 12:41 16:47
Troponin I 0.102 H* D 0.166 H* D Cancelled
12/16/24 12/16/24 12/17/24
17:30 19:36 18:49
Troponin I 0.172 H* 0.169 H* 0.061 H*
Vital Signs and I&O:
Vital Signs
Temp Pulse Resp BP Pulse Ox
98.5 F 60 17 146/61 95
12/19/24 04:28 12/19/24 06:00 12/19/24 06:00 12/19/24 06:00 12/18/24 16:00
Vital Signs
Temp Pulse Resp BP Pulse Ox
98.5 F 60 17 146/61 95
12/19/24 04:28 12/19/24 06:00 12/19/24 06:00 12/19/24 06:00 12/18/24 16:00
Intake & Output
12/16/24 12/17/24 12/18/24 12/19/24
23:59 23:59 23:59 23:59
Intake Total 110 / 110 1000 / 1000
Output Total 550 / 550 700 / 700
Balance 110 / 110 450 / 450 -700 / -700
GEN: Lying in bed and seems appropriate.
HEENT: NC/AT, sclera aniceric
Lungs: Clear anterior and lateral lung bunch
CV: Reg I/ murmur at USB
Ext: no edema
[2024-12-19] MEDS: LEXAPRO 10 MG PO (09:07)
[2024-12-19] MEDS: TYLENOL 650 MG PO (09:07)
[2024-12-19] MEDS: OCUVITE SOFTGEL 1 CAP PO ×2 (09:07→19:34)
[2024-12-19] MEDS: CRESTOR 40 MG PO (09:08)
[2024-12-19] MEDS: HIPREX 1 GRAM PO ×2 (09:08→19:34)
[2024-12-19] MEDS: VITAMIN C 500 MG PO ×2 (09:09→19:34)
[2024-12-19] MEDS: TOPROL XL 12.5 MG PO (09:11)
--- NOTE | 2024-12-19 13:49 | CM ---
Patient with Dx acute stroke, persistent scalp hematoma secondary to mechanical fall last week. Room air. PT/OT recommend acute vs skilled rehab. [facility] noted.
Met with patient and daughter Aviva; discussed PT/OT/ST needs for rehab at discharge - explained [facility] vs SNF levels of care. Patient & daughter are very interested in acute rehab at [facility]. Patient described her fall at home into bathroom pocket door.
Patient able to converse about her hobby of quilting (one of her beautiful quilts was on the hospital bed). 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
Spoke with [facility]; they will consider this patient. Honorio advises to request Physiatry Eval---> message to Dr Masterson.
Plan follow up after seen by Physiatry.
--- NOTE | 2024-12-19 15:06 | PTOTSP ---
SPEECH THERAPY SPEECH/LANGUAGE/COGNITIVE COMMUNICATION EVALUATION:
Patient exhibits mild expressive/receptive language impairments and mild cognitive communication impairments characterized by deficits in the following areas: expressive aphasia (word finding, verbal fluency), attention, processing speed, complex
executive functioning skills, complex problem solving skills, STM. Patient endorsed mild STM deficits at baseline. Patient reported feeling below baseline level of functioning at this time. Etiology of impairments likely related to acute Left MCA
CVA. Patient would likely be a good candidate for rehabilitative speech therapy services. Recommend ST services at the acute care level, as well as continued upon discharge.
--- NOTE | 2024-12-19 15:17 | W.PN.HOSP.TC ---
Today's Communication/Plan
-
Monitor vital signs see plan
Resume amlodipine
PT/OT
Continue with aspirin
Discussed with neurology, restart Eliquis on 12/22/2024
Discharge planning, physiatry consulted
Discussed with daughter at bedside
Assessment / Plan
Assessment / Plan
General: Well Nourished and No Apparent Distress
HEENT: Anicteric and Moist mucous membranes,+ ecchymosis
Respiratory: Clear and Non Labored Respirations; No Wheezes or Crackles
Cardiac: S1/S2 and Regular Rhythm
GI: Soft, Non Tender, Non Distended and Normal Bowel Sounds
Genito-urinary: No Mitchell
Musculoskeletal: No Edema
Neuro: Awake, Alert, Oriented and AO x 3
Psych: Calm and Intact Judgment/Insight
Chest pain
Suspected secondary to coronary artery disease
History of CAD status post 5 vessel CABG
Continue with heparin gtt
Hold Eliquis for now; discussed with neurology and they recommended to restart Eliquis on 12/22/2024.
Troponin noted
Echocardiogram 12/16 without significant change
Status post cardiac catheterization 12/17. Severe [place] coronary artery disease. Cardiology recommended medical management.
Continue aspirin
Continue metoprolol
EKG with sinus bradycardia
Stroke alert postcardiac catheterization 12/17
At that time patient had severe headache and was encephalopathic. suspect possibility of toxic metabolic encephalopathy secondary to anesthesia
Neurology following
MRI with acute stroke. Per neurology to restart Eliquis on 01/08/2025
CT without any clear bleeding. Does have suspected AV malformation.
Seen by speech, okay for regular diet. Patient will also follow-up with speech outpatient
Given recent fall, these symptoms could be also possible postconcussive syndrome
Persistent large right frontal scalp hematoma secondary to mechanical fall last week
Continue to monitor
CT noted
History of hypertension
Continue amlodipine, hold losartan
Hyperlipidemia
Continue statin
Depression
Continue with home meds
Morbid obesity secondary to excess calorie
DVT prophylaxis
SCD's for now; restart Shazia 12/22/2024
Full code, discussed on admission
PT/OT recommended acute rehab. Physiatry consulted
I spent a total of 51 minutes with the patient or on the floor. More than 50% of this time involved counseling and coordination of care.
Anticipated Discharge: Within 24 hours
Subjective/Interval History
-
Date of Service: December 19, 2024
denies pain
Objective Data
-
Labs:
Laboratory Results
12/19/24
04:18
WBC 7.6
Hgb 10.7 L
Hct 32.6 L
Plt Count 169
Sodium 138
Potassium 4.4
Chloride 106
Carbon Dioxide 25
BUN 13
Creatinine 0.8
Glucose 98
Calcium 8.3 L
Vital Signs:
Vital Signs
Temp Pulse Resp BP Pulse Ox
98.6 F 64 18 123/78 93
12/19/24 11:35 12/19/24 13:02 12/19/24 13:02 12/19/24 13:02 12/19/24 13:02
I&O
12/18/24 12/19/24 12/20/24
06:59 06:59 06:59
Intake Total 1000 / 1000 120 / 120
Output Total 250 / 250 1000 / 1000
Balance -250 / -250 0 / 0 120 / 120
--- NOTE | 2024-12-19 17:00 | PTCARENOTE ---
Patient is aaox3. NIH score 0 today. Patient out of bed to chair with 2 person assist and rolling walker. Continent of bowel and bladder. Fair appetite. Mild headache this morning relieved with Tylenol 650mg. Family at bedside.
[2024-12-19] MEDS: ASPIR LOW (ENTERIC COATED) 81 MG PO (19:34)
[2024-12-19 21:27] LABS: Glucose - Point of Care 118 mg/dl (70-99)
[2024-12-20] VITALS (13 sets, daily range): BP systolic 121–151; BP diastolic 49–73; BMI 40.7
[2024-12-20 04:53] LABS: Hematocrit 32.7 % (37.0-47.0); Hemoglobin 10.9 g/dL (12.0-16.0); Mean Corp Hgb Conc. 33.3 g/dL (33.0-37.0); Mean Corpuscular Hgb 28.6 pg (27.0-31.0); Mean Corpuscular Volume 85.8 fL (81.0-99.0); Mean Platelet Volume 11.3 fL (7.4-10.4); Platelet Count 164 10^3/uL (130-400); Red Blood Cell Count 3.81 10^6/uL (4.20-5.40); Red Cell Dist. Width 14.6 % (11.5-14.5); White Blood Cell Count 8.1 10^3/uL (4.8-10.8)
[2024-12-20 05:22] LABS: Blood Urea Nitrogen 15 mg/dl (7-17); Calcium 9.2 mg/dl (8.4-10.2); Carbon Dioxide 23 mmol/L (22-30); Chloride 106 mmol/L (98-107); Estimated Creatinine Clearance 50 ml/min; Glucose 103 mg/dl (70-99); Potassium 4.2 mmol/L (3.5-5.1); Sodium 135 mmol/L (135-145); eGFR > 60.00
--- NOTE | 2024-12-20 05:22 | PTCARENOTE ---
Pt rested well overnight. AAOx3. NIH remains 0. Neuro checks as documented. Denies headache. Cath site right groin bandaide intact. Using BSC to void at beginning of shift. Purewick placed for overnight per pt request. No change from previous
assessment. Call lackey remains within reach. Will continue to monitor.
[2024-12-20] MEDS: CRESTOR 40 MG PO (09:16)
[2024-12-20] MEDS: HIPREX 1 GRAM PO ×2 (09:16→19:45)
[2024-12-20] MEDS: LEXAPRO 10 MG PO (09:16)
[2024-12-20] MEDS: VITAMIN C 500 MG PO ×2 (09:17→19:45)
[2024-12-20] MEDS: TOPROL XL 12.5 MG PO (09:17)
[2024-12-20] MEDS: OCUVITE SOFTGEL 1 CAP PO ×2 (09:20→19:45)
[2024-12-20] MEDS: NORVASC 2.5 MG PO ×2 (09:23→14:59)
--- NOTE | 2024-12-20 12:55 | W.PN.CARDCBS ---
Today's Communication / Plan
-
Continue physical therapy and occupational therapy.
Resume oral anticoagulation likely Sunday when okay with neurology.
Discontinue Toprol-XL given continued bradycardia.
Impression / Plan
-
PCP: Dr. Quach
Cardiology: Dr. Danika Smith
GI: Dr. Horta
Impression:
-Acute MCA territory stroke (4 mm focus of restricted diffusion within the left caudate/parker radiata consistent with acute infarction)
-Chest pain and elevated Troponin 12/16/24, CAD cardiac catheterization 11/27/2024 continue medical management
-Elevated Troponin
-CAD s/p CABG with WOODWARD to LAD, SVG to PDA and RPL and SVG to Diag-11 and OM-1 2003
-Paroxysmal A-fib/tach 08/21/2023
-Chronic Eliquis OAC
-HTN
-Hyperlipidemia
-Recent ER visit for fall 12/11/2024
Echo 09/08/2024: Small LV without WMA and EF preserved at 68%, peak LVOT gradient 13 mmHg at rest and 14 mmHg with Valsalva, stage II diastolic dysfunction, normal RV size and function, mild MR, no aortic regurgitation
Echo 12/16/2024: EF 55 to 60%, no WMA, posterior MAC with mild MR, aortic sclerosis without stenosis, moderate to severe TR with PAP 36 mmHg
Cardiac catheterization 12/17/2024 The left main artery is a large-caliber vessel with 30 to 40% distal tapering. Mid to distal LAD has a focal 80% stenosis just proximal to the touchdown of the WOODWARD graft which is widely patent. The left circumflex
artery is a medium caliber vessel with a calcified 80 to 90% ostial to proximal left circumflex stenosis with left to left and left to right collaterals. There is a patent saphenous vein graft to the OM territory. RCA vessel with 100% chronic total
occlusion in the proximal portion with [id number] collaterals.
1. WOODWARD to LAD: Widely patent.
2. Saphenous vein graft to OM1 and diagonal branch: Widely patent
3. Saphenous vein graft to RPDA/RPL branches: Assumed to be occluded given we could not selectively engage with it despite utilizing JR, 3 DRC, MPA, AL-1 diagnostic catheters and performing an aortogram.
Plan:
She initially came in with chest discomfort and underwent cardiac catheterization. Plan is for medical management of coronary artery disease given SVG to RCA territory is occluded.
-Coronary disease has patent WOODWARD-LAD and SVG-OM/diag is patent. SVG-RCA territory is 100%. Troponin peaked at 0.172.
-Continue current treatment. Continue risk factor modification and medical management.
-No further chest symptoms.
-She had change in mental status and is noted to have acute MCA stroke. Appreciate neurology input. Possibly going to rehab. Some mild aphasia and gait dysfunction/physical deconditioning noted.
-Blood pressure had been on the low side and heart rate has been on the low side. Amlodipine transiently held and now resumed. Blood pressure stable. Follow.
-No recurrence of atrial fibrillation which is paroxysmal. Heart rates in sinus rhythm have been on the low side. We will discontinue low-dose Toprol and follow.
-Anticoagulation when okay with neurology and it appears that we can resume on Sunday.
-Status post recent fall with ecchymosis. Follow-up.
I spoke with her daughter at the bedside. They are hopeful that the patient will be excepted at [facility] re[facility].
HPI: Patient came to ER this morning with an episode of palpitations and chest pain at home and is being admitted with elevated troponin and cardiology has been consulted. Patient has a history of CAD status post CABG in 2003. Her last stress
test was a dobutamine SC 01/17/2022 that was negative for ischemia at 82% MPHR. Patient was seen in the office on 10/02/2024 and labs and recent echo were felt to be stable. Patient called our office on 11/25/2023 to report that her Apple Watch showed
an HR of 40 overnight and while the patient was reassured that this can happen with sleep she was also told that she could start holding her outpatient dose of Toprol XL 12.5 mg daily. Patient then had a trip and fall with facial ecchymoses and
came to ER on 12/11/[address] of the head was negative and her Eliquis has been continued. Patient went to bed last night feeling fine, but awoke this morning at about 3 AM feeling as though her heart was racing and having CP described
abscess SSCP radiating up into her teeth and jaw. Patient took NTG SL x 1 at home with minimal relief in pain. She took a second NTG SL x 1 a few minutes later and her pain started to improve, but did not completely resolve and so she called 911.
Her chest pain improved on the way to the ER and she has not had recurrence of pain. Initial troponin undetectable and then up to 0.1. ECGs here in the ER have shown sinus tachycardia without evidence of A-fib, but patient apparently has a history
of A-fib previously noted on Apple Watch and has been on Eliquis for about 2 years.
Progress Note - Money Manager
Subjective
Date of Service: December 20, 2024
She denies chest pain and palpitations.
Objective
Labs:
12/20/24 04:37
12/20/24 04:37
Labs
Hgb 10.9 g/dL (12.0-16.0) L 12/20/24 04:37
Hct 32.7 % (37.0-47.0) L 12/20/24 04:37
Plt Count 164 10^3/uL (130-400) 12/20/24 04:37
PT 22.7 Sec (11.4-14.6) H 12/17/24 18:49
INR 1.95 12/17/24 18:49
APTT 129.6 Sec (23.4-35.0) H 12/17/24 18:49
Sodium 135 mmol/L (135-145) 12/20/24 04:37
Potassium 4.2 mmol/L (3.5-5.1) 12/20/24 04:37
BUN 15 mg/dl (7-17) 12/20/24 04:37
Creatinine 0.8 mg/dL (0.6-1.0) 12/20/24 04:37
Glucose 103 mg/dl (70-99) H 12/20/24 04:37
Troponins
12/17/24
18:49
Troponin I 0.061 H*
Vital Signs and I&O:
Vital Signs
Temp Pulse Resp BP Pulse Ox
98.5 F 57 20 148/53 95
12/20/24 11:00 12/20/24 09:23 12/20/24 06:01 12/20/24 09:23 12/20/24 10:56
Vital Signs
Temp Pulse Resp BP Pulse Ox
98.5 F 57 20 148/53 95
12/20/24 11:00 12/20/24 09:23 12/20/24 06:01 12/20/24 09:23 12/20/24 10:56
Intake & Output
12/18/24 12/19/24 12/20/24 12/21/24
06:59 06:59 06:59 06:59
Intake Total 1000 / 1000 120 / 120
Output Total 250 / 250 1000 / 1000 350 / 350
Balance -250 / -250 0 / 0 -230 / -230
Physical Exam
Physical Exam
General: Well developed, well nourished in NAD.
Heart: Non displaced PMI, RRR, no murmurs, No S3, S4, no rubs.
Lungs: Clear to auscultation bilaterally, no wheeze, rhonchi, rubs bilaterally,
normal expiratory phase.
Extremities: No clubbing, cyanosis or edema bilaterally.
Neuro: Grossly nonfocal, awake, alert and oriented x3.
--- NOTE | 2024-12-20 13:13 | W.PN.HOSP.TC ---
Today's Communication/Plan
-
Monitor vitals
See plan
Awaiting physiatry evaluation
Continue with aspirin
Continue with amlodipine, increase to 5 mg
Restart losartan
Assessment / Plan
Assessment / Plan
General: Well Nourished and No Apparent Distress
HEENT: Anicteric and Moist mucous membranes,+ ecchymosis
Respiratory: Clear and Non Labored Respirations; No Wheezes or Crackles
Cardiac: S1/S2 and Regular Rhythm
GI: Soft, Non Tender, Non Distended and Normal Bowel Sounds
Genito-urinary: No Mitchell
Musculoskeletal: No Edema
Neuro: Awake, Alert, Oriented and AO x 3
Psych: Calm and Intact Judgment/Insight
Chest pain
Suspected secondary to coronary artery disease
History of CAD status post 5 vessel CABG
Hold Eliquis for now; discussed with neurology and they recommended to restart Eliquis on 12/22/2024.
Troponin noted
Echocardiogram 12/16 without significant change
Status post cardiac catheterization 12/17. Severe [place] coronary artery disease. Cardiology recommended medical management.
Continue aspirin
Metoprolol stopped by cardiology
EKG with sinus bradycardia
Stroke alert postcardiac catheterization 12/17
At that time patient had severe headache and was encephalopathic. suspect possibility of toxic metabolic encephalopathy secondary to anesthesia
Neurology following
MRI with acute stroke. Per neurology to restart Eliquis on 01/08/2025
CT without any clear bleeding. Does have suspected AV malformation.
Seen by speech, okay for regular diet. Patient will also follow-up with speech outpatient
Given recent fall, these symptoms could be also possible postconcussive syndrome
Continue with aspirin
PT/OT recommended rehab. Physiatry consulted
Persistent large right frontal scalp hematoma secondary to mechanical fall last week
Continue to monitor
CT noted
History of hypertension
restart amlodipine and increase to 5 mg, restart losartan
Hyperlipidemia
Continue statin
Depression
Continue with home meds
Morbid obesity secondary to excess calorie
DVT prophylaxis
SCD's for now; restart Shazia 12/22/2024
Full code, discussed on admission
PT/OT recommended acute rehab. Physiatry consulted
Anticipated Discharge: Within 24 hours
Subjective/Interval History
-
Date of Service: December 20, 2024
Denies pain
Objective Data
-
Labs:
Laboratory Results
12/20/24
04:37
WBC 8.1
Hgb 10.9 L
Hct 32.7 L
Plt Count 164
Sodium 135
Potassium 4.2
Chloride 106
Carbon Dioxide 23
BUN 15
Creatinine 0.8
Glucose 103 H
Calcium 9.2
Vital Signs:
Vital Signs
Temp Pulse Resp BP Pulse Ox
98.5 F 57 20 148/53 95
12/20/24 11:00 12/20/24 09:23 12/20/24 06:01 12/20/24 09:23 12/20/24 10:56
I&O
12/19/24 12/20/24 12/21/24
06:59 06:59 06:59
Intake Total 1000 / 1000 120 / 120
Output Total 1000 / 1000 350 / 350
Balance 0 / 0 -230 / -230
[2024-12-20] MEDS: COZAAR 25 MG PO (21:01)
[2024-12-20] MEDS: ASPIR LOW (ENTERIC COATED) 81 MG PO (21:01)
--- NOTE | 2024-12-20 22:08 | PTCARENOTE ---
This RN unable to ensure accuracy of VS documented prior to 19:00. Pt AAOx3, able to stand/pivot to BSC with assistx1 and rolling walker to have small BM. Hygiene care performed. Pw in place for stress inc, device replaced. Pt able to take oral
medications with water without complication. Denies complaints at this time. NIH unchanged from previous. No aphasia present at this time. Call lackey within reach. Bed alarm in place for pt safety.
[2024-12-21] VITALS (10 sets, daily range): BP systolic 108–155; BP diastolic 54–84; PULSE 73; BMI 40.6
[2024-12-21] MEDS: MELATONIN 3 MG PO ×2 (01:08→22:02)
[2024-12-21 05:58] LABS: % Basophils 0.9 % (0-2); % Eosinophils 7.3 % (0-6); % Immature Granulocytes 0.5 % (0-0.5); % Lymphocytes 26.2 % (20.5-51.1); % Monocytes 11.6 % (1.7-9.3); % Neutrophils 53.5 % (42.2-75.2); Absolute Basophils 0.1 10^3/uL (0-0.2); Absolute Eosinophils 0.6 10^3/uL (0-0.7); Absolute Lymphocytes 2.1 10^3/uL (1.2-3.4); Absolute Monocytes 0.9 10^3/uL (0.1-0.6); Absolute Neutrophils 4.2 10^3/uL (1.4-6.5); Hemoglobin 11.5 g/dL (12.0-16.0); Mean Corp Hgb Conc. 33.8 g/dL (33.0-37.0); Mean Corpuscular Volume 85.9 fL (81.0-99.0); Mean Platelet Volume 11.7 fL (7.4-10.4); Nucleated Red Blood Cells % 0 %; Platelet Count 171 10^3/uL (130-400); Red Blood Cell Count 3.96 10^6/uL (4.20-5.40); Red Cell Dist. Width 14.3 % (11.5-14.5); White Blood Cell Count 7.8 10^3/uL (4.8-10.8)
[2024-12-21 06:12] LABS: Blood Urea Nitrogen 15 mg/dl (7-17); Calcium 9.2 mg/dl (8.4-10.2); Carbon Dioxide 24 mmol/L (22-30); Chloride 104 mmol/L (98-107); Estimated Creatinine Clearance 50 ml/min; Glucose 122 mg/dl (70-99); Sodium 137 mmol/L (135-145); eGFR > 60.00
[2024-12-21] MEDS: CRESTOR 40 MG PO (08:54)
[2024-12-21] MEDS: NORVASC 5 MG PO (08:54)
[2024-12-21] MEDS: VITAMIN C 500 MG PO ×2 (08:54→20:46)
[2024-12-21] MEDS: LEXAPRO 10 MG PO (08:54)
[2024-12-21] MEDS: OCUVITE SOFTGEL 1 CAP PO ×2 (08:54→20:46)
[2024-12-21] MEDS: HIPREX 1 GRAM PO ×2 (08:54→20:46)
--- NOTE | 2024-12-21 10:51 | CM ---
Chart reviewed and patient will need PM&R evaluation/recommendations for rehab placement, patient has selected [facility], referral sent to [facility] through [facility].
Plan; [facility].
[2024-12-21] MEDS: TYLENOL 650 MG PO (12:44)
--- NOTE | 2024-12-21 13:10 | W.PN.CARDCBS ---
Today's Communication / Plan
-
Status post MCA stroke agree with rehab.
Resume prior anticoagulation when okay with neurology and it appears that we can resume on Sunday.
Blood pressure is stable
Toprol discontinued 12/20/2024 for bradycardia. Rhythm remains sinus.
Continue medical management of coronary disease
Impression / Plan
-
PCP: Dr. Quach
Cardiology: Dr. Danika Smith
GI: Dr. Horta
Impression:
-Acute MCA territory stroke (4 mm focus of restricted diffusion within the left caudate/parker radiata consistent with acute infarction)
-Chest pain and elevated Troponin 12/16/24, CAD cardiac catheterization 11/27/2024 continue medical management
-Elevated Troponin
-CAD s/p CABG with WOODWARD to LAD, SVG to PDA and RPL and SVG to Diag-11 and OM-1 2003
-Paroxysmal A-fib/tach 08/21/2023
-Chronic Eliquis OAC
-HTN
-Hyperlipidemia
-Recent ER visit for fall 12/11/2024
Echo 09/08/2024: Small LV without WMA and EF preserved at 68%, peak LVOT gradient 13 mmHg at rest and 14 mmHg with Valsalva, stage II diastolic dysfunction, normal RV size and function, mild MR, no aortic regurgitation
Echo 12/16/2024: EF 55 to 60%, no WMA, posterior MAC with mild MR, aortic sclerosis without stenosis, moderate to severe TR with PAP 36 mmHg
Cardiac catheterization 12/17/2024 The left main artery is a large-caliber vessel with 30 to 40% distal tapering. Mid to distal LAD has a focal 80% stenosis just proximal to the touchdown of the WOODWARD graft which is widely patent. The left circumflex
artery is a medium caliber vessel with a calcified 80 to 90% ostial to proximal left circumflex stenosis with left to left and left to right collaterals. There is a patent saphenous vein graft to the OM territory. RCA vessel with 100% chronic total
occlusion in the proximal portion with [id number] collaterals.
1. WOODWARD to LAD: Widely patent.
2. Saphenous vein graft to OM1 and diagonal branch: Widely patent
3. Saphenous vein graft to RPDA/RPL branches: Assumed to be occluded given we could not selectively engage with it despite utilizing JR, 3 DRC, MPA, AL-1 diagnostic catheters and performing an aortogram.
Plan:
She initially came in with chest discomfort and underwent cardiac catheterization. Plan is for medical management of coronary artery disease given SVG to RCA territory is occluded.
-Coronary disease has patent WOODWARD-LAD and SVG-OM/diag is patent. SVG-RCA territory is 100%. Troponin peaked at 0.172.
-Continue current treatment. Continue risk factor modification and medical management.
-No further chest symptoms.
She had change in mental status and is noted to have acute MCA stroke.
-Appreciate neurology input. Some mild aphasia and gait dysfunction/physical deconditioning noted.
-Likely going to [facility]
-Continues to improve.
Hypertension
-Previously blood pressure had been on the low side and heart rate has been on the low side. Amlodipine transiently held and now resumed.
-Losartan was also resumed. Blood pressure stable. Follow.
Paroxysmal atrial fibrillation w
-She remains in sinus rhythm. Heart rates in sinus rhythm have been on the low side during hospital stay. Toprol discontinued. Stable.
-Anticoagulation when okay with neurology and it appears that we can resume on Sunday.
Status post recent fall with ecchymosis.
-Will benefit from rehabilitation.
I spoke with her daughter at the bedside.
HPI: Patient came to ER this morning with an episode of palpitations and chest pain at home and is being admitted with elevated troponin and cardiology has been consulted. Patient has a history of CAD status post CABG in 2003. Her last stress
test was a dobutamine SC 01/17/2022 that was negative for ischemia at 82% MPHR. Patient was seen in the office on 10/02/2024 and labs and recent echo were felt to be stable. Patient called our office on 11/25/2023 to report that her Apple Watch showed
an HR of 40 overnight and while the patient was reassured that this can happen with sleep she was also told that she could start holding her outpatient dose of Toprol XL 12.5 mg daily. Patient then had a trip and fall with facial ecchymoses and
came to ER on 12/11/[address] of the head was negative and her Eliquis has been continued. Patient went to bed last night feeling fine, but awoke this morning at about 3 AM feeling as though her heart was racing and having CP described
abscess SSCP radiating up into her teeth and jaw. Patient took NTG SL x 1 at home with minimal relief in pain. She took a second NTG SL x 1 a few minutes later and her pain started to improve, but did not completely resolve and so she called 911.
Her chest pain improved on the way to the ER and she has not had recurrence of pain. Initial troponin undetectable and then up to 0.1. ECGs here in the ER have shown sinus tachycardia without evidence of A-fib, but patient apparently has a history
of A-fib previously noted on Apple Watch and has been on Eliquis for about 2 years.
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
Subjective
Date of Service: December 21, 2024
She is feeling well overall. Denies chest pain and palpitations.
Objective
Labs:
12/21/24 05:47
12/21/24 05:47
Labs
Hgb 11.5 g/dL (12.0-16.0) L 12/21/24 05:47
Hct 34.0 % (37.0-47.0) L 12/21/24 05:47
Plt Count 171 10^3/uL (130-400) 12/21/24 05:47
PT 22.7 Sec (11.4-14.6) H 12/17/24 18:49
INR 1.95 12/17/24 18:49
APTT 129.6 Sec (23.4-35.0) H 12/17/24 18:49
Sodium 137 mmol/L (135-145) 12/21/24 05:47
Potassium 4.0 mmol/L (3.5-5.1) 12/21/24 05:47
BUN 15 mg/dl (7-17) 12/21/24 05:47
Creatinine 0.8 mg/dL (0.6-1.0) 12/21/24 05:47
Glucose 122 mg/dl (70-99) H 12/21/24 05:47
Vital Signs and I&O:
Vital Signs
Temp Pulse Resp BP Pulse Ox
97.9 F 60 29 137/60 96
12/21/24 11:00 12/21/24 12:48 12/21/24 12:48 12/21/24 12:48 12/21/24 12:33
Vital Signs
Temp Pulse Resp BP Pulse Ox
97.9 F 60 29 137/60 96
12/21/24 11:00 12/21/24 12:48 12/21/24 12:48 12/21/24 12:48 12/21/24 12:33
Intake & Output
12/19/24 12/20/24 12/21/24 12/22/24
06:59 06:59 06:59 06:59
Intake Total 1000 / 1000 120 / 120
Output Total 1000 / 1000 350 / 350 700 / 700 1200 / 1200
Balance 0 / 0 -230 / -230 -700 / -700 -1200 / -1200
Physical Exam
Physical Exam
General: Healing ecchymosis bilateral eyes
Heart: Non displaced PMI, RRR, no murmurs, No S3, S4, no rubs.
Lungs: Decreased breath sounds at the bases
Extremities: No clubbing, cyanosis or edema bilaterally.
Neuro: Grossly nonfocal, awake, alert and oriented x3.
--- NOTE | 2024-12-21 13:29 | W.PN.HOSP.TC ---
Today's Communication/Plan
-
Monitor vital signs and see plan
Continue aspirin
Eliquis to start tomorrow per neurology
Continue amlodipine, losartan
Metoprolol DC'd due to bradycardia
Transfer out of IMU
Physiatry evaluation pending, plan for [facility]
Assessment / Plan
Assessment / Plan
General: Well Nourished and No Apparent Distress
HEENT: Anicteric and Moist mucous membranes,+ ecchymosis
Respiratory: Clear and Non Labored Respirations; No Wheezes or Crackles
Cardiac: S1/S2 and Regular Rhythm
GI: Soft, Non Tender, Non Distended and Normal Bowel Sounds
Genito-urinary: No Mitchell
Musculoskeletal: No Edema
Neuro: Awake, Alert, Oriented and AO x 3
Psych: Calm and Intact Judgment/Insight
Chest pain
Suspected secondary to coronary artery disease
History of CAD status post 5 vessel CABG
Hold Eliquis for now; discussed with neurology and they recommended to restart Eliquis on 12/22/2024.
Troponin noted
Echocardiogram 12/16 without significant change
Status post cardiac catheterization 12/17. Severe seminole coronary artery disease. Cardiology recommended medical management.
Continue aspirin
Metoprolol stopped by cardiology secondary to bradycardia
Stroke alert postcardiac catheterization 12/17
At that time patient had severe headache and was encephalopathic. MRI with acute stroke
Neurology following
MRI with acute stroke. Per neurology to restart Eliquis on 12/22/2024
Seen by speech, okay for regular diet. Patient will also follow-up with speech outpatient
Given recent fall, these symptoms could be also possible postconcussive syndrome
Continue with aspirin
PT/OT recommended acute rehab. Physiatry consulted
Persistent large right frontal scalp hematoma secondary to mechanical fall last week
Continue to monitor
CT noted
History of hypertension
restarted amlodipine and increased to 5 mg, restarted losartan
Hyperlipidemia
Continue statin
Depression
Continue with home meds
Morbid obesity secondary to excess calorie
DVT prophylaxis
SCD's for now; restart Eliquis 12/22/2024
Full code, discussed on admission
PT/OT recommended acute rehab. Physiatry consulted
Anticipated Discharge: Within 24 hours
Subjective/Interval History
-
Date of Service: December 21, 2024
denies pain
Objective Data
-
Labs:
Laboratory Results
12/21/24
05:47
WBC 7.8
Hgb 11.5 L
Hct 34.0 L
Plt Count 171
Sodium 137
Potassium 4.0
Chloride 104
Carbon Dioxide 24
BUN 15
Creatinine 0.8
Glucose 122 H
Calcium 9.2
Vital Signs:
Vital Signs
Temp Pulse Resp BP Pulse Ox
97.9 F 60 29 137/60 96
12/21/24 11:00 12/21/24 12:48 12/21/24 12:48 12/21/24 12:48 12/21/24 12:33
I&O
12/20/24 12/21/24 12/22/24
06:59 06:59 06:59
Intake Total 120 / 120
Output Total 350 / 350 700 / 700 1200 / 1200
Balance -230 / -230 -700 / -700 -1200 / -1200
[2024-12-21] MEDS: COZAAR 25 MG PO (22:02)
[2024-12-21] MEDS: ASPIR LOW (ENTERIC COATED) 81 MG PO (22:02)
[2024-12-22 03:28] VITALS: BP 133/56
[2024-12-22 06:00] VITALS: BMI 39.8
[2024-12-22 09:12] LABS: % Basophils 1.1 % (0-2); % Eosinophils 7.3 % (0-6); % Immature Granulocytes 0.3 % (0-0.5); % Lymphocytes 23.3 % (20.5-51.1); % Monocytes 10.9 % (1.7-9.3); % Neutrophils 57.1 % (42.2-75.2); Absolute Basophils 0.1 10^3/uL (0-0.2); Absolute Eosinophils 0.6 10^3/uL (0-0.7); Absolute Lymphocytes 1.9 10^3/uL (1.2-3.4); Absolute Monocytes 0.9 10^3/uL (0.1-0.6); Absolute Neutrophils 4.6 10^3/uL (1.4-6.5); Hematocrit 34.7 % (37.0-47.0); Hemoglobin 11.8 g/dL (12.0-16.0); Mean Corpuscular Hgb 29.2 pg (27.0-31.0); Mean Corpuscular Volume 85.9 fL (81.0-99.0); Mean Platelet Volume 12.9 fL (7.4-10.4); Nucleated Red Blood Cells % 0 %; Platelet Count 184 10^3/uL (130-400); Red Blood Cell Count 4.04 10^6/uL (4.20-5.40); Red Cell Dist. Width 14.4 % (11.5-14.5)
[2024-12-22 09:15] VITALS: BP 154/65
[2024-12-22 10:03] LABS: Blood Urea Nitrogen 16 mg/dl (7-17); Calcium 8.9 mg/dl (8.4-10.2); Carbon Dioxide 24 mmol/L (22-30); Chloride 102 mmol/L (98-107); Estimated Creatinine Clearance 56 ml/min; Glucose 107 mg/dl (70-99); Potassium 3.9 mmol/L (3.5-5.1); Sodium 137 mmol/L (135-145); eGFR > 60.00
[2024-12-22] MEDS: CRESTOR 40 MG PO (10:05)
[2024-12-22] MEDS: ELIQUIS 5 MG PO ×2 (10:05→20:20)
[2024-12-22] MEDS: NORVASC 5 MG PO (10:05)
[2024-12-22] MEDS: OCUVITE SOFTGEL 1 CAP PO ×2 (10:05→20:20)
[2024-12-22] MEDS: HIPREX 1 GRAM PO ×2 (10:05→20:20)
[2024-12-22] MEDS: LEXAPRO 10 MG PO (10:06)
[2024-12-22] MEDS: VITAMIN C 500 MG PO ×2 (10:06→20:20)
--- NOTE | 2024-12-22 10:26 | CM ---
CM reviewed chart, PMR consulted. Per [facility] at [place], will have beds later in the week. Will await PMR consult. CM will continue to follow for all discharge planning needs.
Plan; [facility] likely when stable, awaiting PMR consult
[2024-12-22 10:56] VITALS: BP 152/64; PULSE 62; O2SAT 94
[2024-12-22 13:00] VITALS: BP 109/61
--- NOTE | 2024-12-22 14:11 | W.PN.CARDCBS ---
Addendum entered and electronically signed by Tara Salinas DO 12/22/24 23:00:
I saw and examined the patient.
The Insurance Claim Representative's note was reviewed and I agree with the note.
Comment: Shaylee was seen and examined with her daughter at bedside. 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 She reports no symptoms and is awaiting PM&R consult for possible
transfer to [facility].
General: No acute distress, AAOX3. Bilateral periorbital ecchymosis.
Heart: Regular, Negative S3 positive S1/S2, Negative S4, No murmur
Lungs: CTA b/l, negative wheezes/rales/rhonchi
Abd: Positive BS, NT/ND, neg /rigidity/guarding
Ext: Trace edema right knee and lower leg with right knee ecchymosis
Plan:
84-year-old female with PMH (as below) presented to [facility] on 12/16/2024 with shortness of breath pain in her teeth and heart racing. She was noted to have elevated troponin and was admitted. Echocardiogram with EF 55-60%, Moderate to
severe tricuspid regurgitation. She also had a large right frontal scalp hematoma from a mechanical fall last week. She had a repeat cardiac catheterization on 12/17/2024 with presumed occlusion of the saphenous vein graft RPDA to RPL with 100%
proximal RCA chronic total occlusion. On 12/17/2024 patient developed acute severe headache as well as confusion and a stroke alert was initiated. Acute MCA territory stroke (4 mm focus of restricted diffusion within the left caudate/parker radiata
consistent with acute infarction).
-Stable from a cardiovascular and neurologic standpoint.
-Eliquis 5 mg twice daily resumed this morning
-Toprol-XL stopped this admission due to bradycardia
-Amlodipine increased to 5 mg daily
-Stable for discharge to [facility] from a cardiovascular standpoint
-Outpatient cardiac follow-up to be arranged. Will sign off, recall if needed
Original Note:
Today's Communication / Plan
-
Await PMR consult for [facility]
Eliquis 5 mg BID resumed this AM
Toprol XL stopped this admission due to bradycardia
Amlodipine increased to 5 mg daily for medical management of CAD
Impression / Plan
-
PCP: Dr. Quach
Cardiology: Dr. Danika Smith
GI: Dr. Horta
Impression:
Acute MCA territory stroke (4 mm focus of restricted diffusion within the left caudate/parker radiata consistent with acute infarction)
Chest pain and elevated Troponin 12/16/24
NSTEMI
CAD
s/p CABG with WOODWARD to LAD, SVG to PDA and RPL and SVG to Diag-11 and OM-1 2003
cardiac catheterization with WOODWARD to LAD and [id number] widely patent, but the SVG-PDA-RPL could not be found, medical mgmt 11/27/2024
Paroxysmal A-fib/tach 08/21/2023
Chronic Eliquis OAC
HTN
Hyperlipidemia
Recent ER visit for fall 12/11/2024
Echo 09/08/2024: Small LV without WMA and EF preserved at 68%, peak LVOT gradient 13 mmHg at rest and 14 mmHg with Valsalva, stage II diastolic dysfunction, normal RV size and function, mild MR, no aortic regurgitation
Echo 12/16/2024: EF 55 to 60%, no WMA, posterior MAC with mild MR, aortic sclerosis without stenosis, moderate to severe TR with PAP 36 mmHg
Cardiac catheterization 12/17/2024 The left main artery is a large-caliber vessel with 30 to 40% distal tapering. Mid to distal LAD has a focal 80% stenosis just proximal to the touchdown of the WOODWARD graft which is widely patent. The left circumflex
artery is a medium caliber vessel with a calcified 80 to 90% ostial to proximal left circumflex stenosis with left to left and left to right collaterals. There is a patent saphenous vein graft to the OM territory. RCA vessel with 100% chronic total
occlusion in the proximal portion with [id number] collaterals.
1. WOODWARD to LAD: Widely patent.
2. Saphenous vein graft to OM1 and diagonal branch: Widely patent
3. Saphenous vein graft to RPDA/RPL branches: Assumed to be occluded given we could not selectively engage with it despite utilizing JR, 3 DRC, MPA, AL-1 diagnostic catheters and performing an aortogram.
Plan:
-Patient with chest pain and peak Troponin 0.172. Patient taken to [facility] 12/17/24 and plan was for medical management of CAD. The WOODWARD to LAD and [id number] were widely patent, but the SVG-PDA-RPL could not be found.
-Outpatient dose of amlodipine was increased to 5 mg daily
-Post-cath there was a change in mental status and MRI showed acute MCA stroke.
-Patient did not take her Eliquis on the morning of admission 12/16/24 at 0518, but was then started on Heparin gtt same day. Eliquis resumed 12/22/24 AM.
-Eliquis 5 mg BID (age 84, wt 89.36 kg, Cre 0.7)
-Plan is for [facility] later this week once a PMR consult is completed and bed available
-Previous outpatient dose of Toprol XL 12.5 mg daily was resumed on admission on 12/16/2024 after patient had just recently stop that med on 11/25/2024 due to a heart rate in the 40s while she was sleeping. Then while on tele this admission patient
noted to have persistent bradycardia so Toprol XL was officially stopped 12/20/24.
-LDL 43. Outpatient dose of Crestor 40 mg daily should be continued
HPI: Patient came to ER this morning with an episode of palpitations and chest pain at home and is being admitted with elevated troponin and cardiology has been consulted. Patient has a history of CAD status post CABG in 2003. Her last stress
test was a dobutamine SC 01/17/2022 that was negative for ischemia at 82% MPHR. Patient was seen in the office on 10/02/2024 and labs and recent echo were felt to be stable. Patient called our office on 11/25/2023 to report that her Apple Watch showed
an HR of 40 overnight and while the patient was reassured that this can happen with sleep she was also told that she could start holding her outpatient dose of Toprol XL 12.5 mg daily. Patient then had a trip and fall with facial ecchymoses and
came to ER on 12/11/[address] of the head was negative and her Eliquis has been continued. Patient went to bed last night feeling fine, but awoke this morning at about 3 AM feeling as though her heart was racing and having CP described
abscess SSCP radiating up into her teeth and jaw. Patient took NTG SL x 1 at home with minimal relief in pain. She took a second NTG SL x 1 a few minutes later and her pain started to improve, but did not completely resolve and so she called 911.
Her chest pain improved on the way to the ER and she has not had recurrence of pain. Initial troponin undetectable and then up to 0.1. ECGs here in the ER have shown sinus tachycardia without evidence of A-fib, but patient apparently has a history
of A-fib previously noted on Apple Watch and has been on Eliquis for about 2 years.
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
Subjective
Date of Service: December 22, 2024
Feels well, no chest pain
Objective
Labs:
12/22/24 07:02
12/22/24 07:02
Labs
Hgb 11.8 g/dL (12.0-16.0) L 12/22/24 07:02
Hct 34.7 % (37.0-47.0) L 12/22/24 07:02
Plt Count 184 10^3/uL (130-400) 12/22/24 07:02
PT 22.7 Sec (11.4-14.6) H 12/17/24 18:49
INR 1.95 12/17/24 18:49
APTT 129.6 Sec (23.4-35.0) H 12/17/24 18:49
Sodium 137 mmol/L (135-145) 12/22/24 07:02
Potassium 3.9 mmol/L (3.5-5.1) 12/22/24 07:02
BUN 16 mg/dl (7-17) 12/22/24 07:02
Creatinine 0.7 mg/dL (0.6-1.0) 12/22/24 07:02
Glucose 107 mg/dl (70-99) H 12/22/24 07:02
Vital Signs and I&O:
Vital Signs
Temp Pulse Resp BP Pulse Ox
98.7 F 80 20 109/61 93
12/22/24 13:00 12/22/24 13:00 12/22/24 13:00 12/22/24 13:00 12/22/24 13:00
Vital Signs
Temp Pulse Resp BP Pulse Ox
98.7 F 80 20 109/61 93
12/22/24 13:00 12/22/24 13:00 12/22/24 13:00 12/22/24 13:00 12/22/24 13:00
Intake & Output
12/20/24 12/21/24 12/22/24 12/23/24
06:59 06:59 06:59 06:59
Intake Total 120 / 120
Output Total 350 / 350 700 / 700 1200 / 1200
Balance -230 / -230 -700 / -700 -1200 / -1200
Physical Exam
Physical Exam
GEN: NAD. AAOx3
HEENT: B/L black eyes, EOMI
LUNGS: RA. No audible wheeze
CV: SR on tele.
ABD: ND
EXT: No edema B/L
NEURO: Gross non-focal
SKIN: No rash
--- NOTE | 2024-12-22 14:43 | W.PN.HOSP.TC ---
Today's Communication/Plan
-
CT head, if no new/extending bleeding - restart Eliquis
[facility] pending =- CM aware
Assessment / Plan
Assessment / Plan
84yo F with PMHX of CAD s/p CABG, HTN, HLD, MDD came with chest pain, managed for NSTEMI, developed stroke after cardiac cath on 12/17/24
A/P:
#NSTEMI
s/p CABG in 2003
s/p cardiac cath on 12/17/24 - advised medical mgmt
Cardiology follows
Echo 12/16/2024: EF 55 to 60%, no WMA, posterior MAC with mild MR, aortic sclerosis without stenosis, moderate to severe TR with PAP 36 mmHg
#Afib on ELiquis, paroxysmal
COnt Eliquis -see neuro advise on when to restart
check TSH
#Fall with right frontal scalp hematoma
CT head
#4 mm focus of restricted diffusion within the left caudate/parker radiata consistent with acute infarction
Stroke after cardiac cath
Neurology followed: advised ELiquis to be reatrtedon 12/22/24
PT/OT and recommended Acute Rehab
LDL 43
Cont statin
Hgba1c 6.1% - preDM, low carb diet advised
CTA: Carotid calcified plaque, as described. On the right, proximal ICA estimated luminal diameter reduction of 50%. On the left, proximal ICA estimated luminal diameter reduction of less than 50%. No occlusion. No dissection
#Essential HTN
#HLD
cont home meds
DVT ppx on SCDs
Full code
I have spent at least 39min reviewing chart, test results, communication with consultants and direct patient care
Anticipated Discharge: Within 24 hours
Subjective/Interval History
-
Date of Service: December 22, 2024
Objective Data
-
Labs:
Laboratory Results
12/22/24
07:02
WBC 8.0
Hgb 11.8 L
Hct 34.7 L
Plt Count 184
Sodium 137
Potassium 3.9
Chloride 102
Carbon Dioxide 24
BUN 16
Creatinine 0.7
Glucose 107 H
Calcium 8.9
Vital Signs:
Vital Signs
Temp Pulse Resp BP Pulse Ox
98.7 F 80 20 109/61 93
12/22/24 13:00 12/22/24 13:00 12/22/24 13:00 12/22/24 13:00 12/22/24 13:00
I&O
12/21/24 12/22/24 12/23/24
06:59 06:59 06:59
Output Total 700 / 700 1200 / 1200
Balance -700 / -700 -1200 / -1200
Review of Systems
-
History Source: Patient
All other systems: Reviewed and negative
Physical Exam
-
General: Well Developed and Well Nourished
HEENT: Other (scalp hematoma, bruises around eyes)
Respiratory: Clear to Auscultation
Cardiac: Regular Rhythm
GI: Soft, Nontender and Nondistended
Musculoskeletal: No Clubbing, No Cyanosis and No Edema
Skin: Warm
Neuro: Awake, Alert, Oriented and AO x 3
Psych: Calm
--- NOTE | 2024-12-22 15:01 | CON.MD ---
Consultation - Medical
-
Referring Provider:�Dr. Zachariah Masterson
Chief Complaint:�Stroke
�
History of Present Illness:�84-year-old female with PMH (as below) presented to [facility] on 12/16/2024 with shortness of breath pain in her teeth and heart racing. She was noted to have elevated troponin and was admitted. Echocardiogram
with EF 55-60%, Moderate to severe tricuspid regurgitation. She also had a large right frontal scalp hematoma from a mechanical fall last week. She had a repeat cardiac catheterization on 12/17/2024 with presumed occlusion of the saphenous vein
graft RPDA to RPL with 100% proximal RCA chronic total occlusion. On 12/17/2024 patient developed acute severe headache as well as confusion and a stroke alert was initiated.
�
Past Medical History:�Asthma, CAD, HTN, HLD, valvular disease, urinary incontinence
Procedure History:�Appendectomy, CABG 2003, , tonsillectomy
Family History:�CAD, diabetes, emphysema, Crohn's
�
Social History:�
Functional Level Premorbidly:�Independent with all activities�
Functional Level Currently:�Supervision for lower extremity dressing and toileting. Language and cognitive deficits. Min assist bed mobility, min assist transfers, min assist ambulating 30 feet x 2 with rolling walker.
�
Tobacco:�Denies�
Alcohol:�Occasional
Drug use:�Denies�
�
Lives with:�son and grandson live with her.
24-hour assistance available:�Yes
Number of floors:�1
# steps to enter:�3
# steps to second floor: Full flight
Potential First floor set up:�Yes
Driving:�No
Occupation:�Retired
�
�
Allergies:�
Allergy/AdvReac Type Severity Reaction Status Date / Time
ezetimibe [From Zetia] Allergy Unknown Verified 12/16/24 05:31
penicillin G Allergy Hives- Verified 12/16/24 05:31
tolerated
ceftriaxone
in 2017
Vvlvmom-TLY-GfN Reductase Allergy drowsiness Verified 12/16/24 05:31
Inhibitor
[Ppfrvqd-Gxt-Pis Reductase
Inhibitor]
venom-honey bee Allergy SWELLING Verified 12/16/24 05:31
THROAT
vitamin E (d-alpha Allergy Unknown Verified 12/16/24 05:31
tocopherol)
�
Review of Systems:�
Constitutional: (x) abNormal _fatigue
Eye: (x) Normal _
Ear/Nose/Throat: (x) Normal _
Respiratory: (x) Normal _
Cardiovascular: (x) Normal _
Gastrointestinal: (x) Normal _
Genitourinary: (x) Normal _
Musculoskeletal: (x) Normal _
Integumentary: (x) Normal _
Neurologic: (x) abNormal _stroke with balance concerns and trouble finding words
Psychiatric: (x) Normal _
Endocrine: (x) Normal _
Hematologic/Lymphatic: (x) Normal _
Allergic/Immunologic: (x) Normal _
�
Medications:�
Active Current Visit Medication List
Category Date Time Status
0.9% Sodium Chloride [Nss (Preservative Free)] Med 12/18/24 12:07 Active
0.25 ml IV ONCE PRN PRN
Acetaminophen 1000MG/100Ml [Ofirmev] Med 12/18/24 00:39 Active
1,000 mg in 100 ml IV Q6HPRN
Acetaminophen [Tylenol] Med 12/16/24 13:18 Active
650 mg PO Q6HPRN PRN
Amlodipine [Norvasc] Med 12/21/24 08:00 Active
5 mg PO DAILY
Apixaban [Eliquis] Med 12/22/24 08:00 Active
5 mg PO BID
Ascorbic Acid [Vitamin C] Med 12/16/24 20:00 Active
500 mg PO BID
Aspirin Low Dose EC [Aspir Low (Enteric Coated)] Med 12/16/24 22:00 Active
81 mg PO HS
Bisacodyl [Dulcolax] Med 12/16/24 14:38 Active
10 mg RECTAL [id number] PRN
Docusate W/Senna [Senokot-S] Med 12/16/24 14:38 Active
1 tablet PO BIDPRN PRN
Escitalopram Oxalate [Lexapro] Med 12/17/24 08:00 Active
10 mg PO DAILY
Flush (0.9% Sodium Chloride) [Flush (Nss)] Med 12/16/24 13:00 Active
See Dose Instructions IV PER PROTOCOL
Ipratropium/Albuterol Sulfate [Duoneb] Med 12/17/24 11:30 Active
3 ml INH R Q4HPRN PRN
Lorazepam [Ativan] Med 12/18/24 12:05 Active
0.5 mg IV ONCE PRN
Losartan [Cozaar] Med 12/20/24 22:00 Active
25 mg PO HS
Melatonin Med 12/21/24 22:00 Active
3 mg PO HS
Methenamine Hippurate [Hiprex] Med 12/16/24 20:00 Active
1 gram PO BID
Morphine Sulfate Med 12/17/24 18:43 Active
2 mg IV ONCE PRN
Nitroglycerin Sublingual [Nitrostat (Sublingual)] Med 12/16/24 14:38 Active
0.4 mg SL [id number] PRN
Polyethylene Glycol Powder [Miralax] Med 12/16/24 14:38 Active
17 grams PO DAILYPRN PRN
Rosuvastatin Calcium [Crestor] Med 12/17/24 08:00 Active
40 mg PO DAILY
Vit C/Vit E/Lutein/Min/Monona-3 [Ocuvite Softgel] Med 12/16/24 20:00 Active
1 cap PO BID
�
Vitals:�
Temp Pulse Resp BP Pulse Ox
98.7 F 89 20 123/60 92
12/22/24 17:15 12/22/24 17:15 12/22/24 17:15 12/22/24 17:15 12/22/24 17:15
Height 4 ft 11 in
Actual Weight 89.358 kg
Body Mass Index (BMI) 39.8
�
Physical Exam:�
General Appearance/Observation: Well-developed, well-nourished female in no apparent distress.�
Pain/Comfort Assessment: Denies�
Mood/Affect: Appropriate�
�
Integumentary/Operative Site:�Bilateral eye periorbital ecchymotic areas yellow/green in color
Eyes: Conjunctiva/Lids: normal���� Pupils: pupils equal round and reactive to light
Ears/Nose/Throat: oral mucosa moist,� throat clear.������������ Lips/Teeth/Gums: normal�
Cardiovascular: Heart: regular, no murmur�
Pulses: dorsalis pedis 2+ bilaterally�
Respiratory: Respiratory Effort/Chest Expansion: normal������� Auscultation: Clear to auscultation bilaterally�
Gastrointestinal: abdomen not tender, no distension, normal abdominal bowel sounds
Genitourinary: No Mitchell�
Extremities:�Edema: None�Cyanosis: None�Trophic�changes: None
�
Neurology Exam:
Orientation: Alert, Oriented to self, Time, Place�
Memory: Intact for recent medical concerns
Repetition: Intact
Comprehension: Intact
Two step command: Intact
Naming: Intact
Able to tell time on analog clock across the room.
Cranial Nerves:
�� CNII:�Pupillary light reflex: Intact����Visual Field: Intact
�� CN III, IV, : Extraocular muscles: Intact�
�� CN V:�Facial Sensation�at�Forehead: Intact,�Maxilla: Intact,�Mandible: Intact
�� CN VII:�Facial movement: Symmetric
�� CN VIII:�Hearing: Normal
�� CN IX/X:�Speech & swallow: Has some word finding difficulties at times. �Position of Uvula: Midline
�� CN XI:�Shoulder shrug: Symmetric
�� CN XII:�Tongue protrusion: Midline
Sensory:
�� Light touch: Intact in bilateral upper and lower extremities, no extinction to double simultaneous stimulation.
Reflexes:
�� Biceps: 2+ bilaterally
�� Brachioradialis: 2+ bilaterally
�� Triceps: 2+ bilaterally
�� Patellar: 2+ bilaterally
�� Achilles: 2+ bilaterally
�� Babinski: Down going bilaterally
�� Clonus: None
�� Agatha: Negative bilaterally�
Cerebellar: Dysmetria/Ataxia: None�
Musculoskeletal: Motor: (Manual muscle scale 0-5)�
Muscle SA EF WE EE FF FA HF KE DF EHL PF
Right� 4 5 5 5 5 5 4 5 5 5
Left 4 5 5 5 5 5 4 5 5 5
�
Tone: Normal in all extremities�
Range of Motion: Passively within functional limits in all extremities�
�
Lab Results
Laboratory Data
12/22/24 07:02
12/22/24 07:02
PT 22.7 Sec (11.4-14.6) H 12/17/24 18:49
INR 1.95 12/17/24 18:49
APTT 129.6 Sec (23.4-35.0) H 12/17/24 18:49
Total Bilirubin 0.5 mg/dl (0.2-1.3) 12/17/24 20:44
AST 35 U/L (14-36) 12/17/24 20:44
ALT 19 U/L (0-35) 12/17/24 20:44
Alkaline Phosphatase 85 U/L (38-126) 12/17/24 20:44
Total Protein 6.9 g/dl (6.3-8.2) 12/17/24 20:44
Albumin 4.2 g/dl (3.5-5.0) 12/17/24 20:44
�
Diagnostic Results:�as per HPI�
�
Assessment
84 y/o F PMH (Asthma, CAD, HTN, HLD, valvular disease, urinary incontinence) with 12/16/2024 NSTEMI and 12/17/2024 CVA with ADL and amatory dysfunction.
�
Plan�
PM&R�PT/OT to increase independence with ADLs, improve balance, coordination, endurance, strength, mobility, community reintegration, decreased burden of care on others and family education.�
�
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 Continue to monitor neurologic status.�
Aphasia: speech evaluation�
HTN: Amlodipine 5 mg daily, losartan 25 mg at night, monitor closely�
HLD: Statin�
Coronary artery disease�with NSTEMI: Eliquis for A-fib, statin. Beta-kaz held with bradycardia.
Atrial fibrillation:�Eliquis anticoagulation and rate control with beta-kaz held with bradycardia�������������������������������������������
��������
Normocytic anemia: Improving to 11.8 from 11.5, consider iron studies, B12 and folate. Monitor.
FEN: Cholesterol-lowering diet, Vitamin C
Psych: Psychology consult.� Monitor mood, adjust Lexapro 10 mg as needed.�
Skin: monitor for pressure sores/rashes/lesions.�
Pain: acetaminophen as needed.�
Bowel: Colace and Senna, PRN bisacodyl.�
Bladder: Hiprex 1 g twice daily for UTI prevention. Time void, PVRs, PRN straight cath.�
GI Prophylaxis: Pantoprazole�
DVT Prophylaxis: Mechanical and Eliquis
Pulmonary: Incentive spirometry�
Morbid obesity: Continue to gambling counsellor patient about diet adjustments to control obesity. Body habitus and increased force to move body and extremities causes further difficulty with functional tasks.�
Safety: Continue to reinforce assistance with all transfers.�
Code Status:� Full code
Dispo�(date/plan/equipment needs): Home with family care.� Social history reviewed.�
Functional and Medical Goals:�Modified Independent with ADL�s, ambulation, transfers�
Discharge Destination:�Acute inpatient rehabilitation
�
Summary of recommendations:
-�Discharge Destination:�Acute inpatient rehabilitation
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 Continue to monitor neurologic status.�
Aphasia: speech �
Coronary artery disease�with NSTEMI: Eliquis for A-fib, statin. Beta-kaz held with bradycardia.
Atrial fibrillation:�Eliquis anticoagulation and rate control with beta-kaz held with bradycarda
Normocytic anemia: Improving to 11.8 from 11.5, consider iron studies, B12 and folate. Monitor.
Thank you for allowing me to care for your patient. Please contact me with any questions or concerns.
[2024-12-22 17:15] VITALS: BP 123/60
[2024-12-22 20:32] VITALS: BP 141/56
[2024-12-22] MEDS: ASPIR LOW (ENTERIC COATED) 81 MG PO (21:16)
[2024-12-22] MEDS: COZAAR 25 MG PO (21:16)
[2024-12-22] MEDS: MELATONIN 3 MG PO (21:16)
[2024-12-23] VITALS (9 sets, daily range): BP systolic 102–155; BP diastolic 53–67; PULSE 60; O2SAT 95; BMI 39.8
[2024-12-23] MEDS: CRESTOR 40 MG PO (07:30)
[2024-12-23] MEDS: VITAMIN C 500 MG PO ×2 (07:31→20:44)
[2024-12-23] MEDS: NORVASC 5 MG PO (07:31)
[2024-12-23] MEDS: OCUVITE SOFTGEL 1 CAP PO ×2 (07:31→20:43)
[2024-12-23] MEDS: HIPREX 1 GRAM PO ×2 (07:31→20:43)
[2024-12-23] MEDS: LEXAPRO 10 MG PO (07:31)
[2024-12-23] MEDS: ELIQUIS 5 MG PO ×2 (07:31→20:43)
--- NOTE | 2024-12-23 10:57 | CM ---
Addendum entered by Kellie Santiago 12/23/24 13:35:
Per [facility] can accept pt tomorrow
Updated hospitalist
Original Note:
CM spoke emily/ [facility], poss bed for pt today, will confirm w/ JEAN once rounds are done
Per hospitalist, pt is stable for d/c today if [facility] has a bed
[facility]
Report: [phone]

Plan: [facility]
--- NOTE | 2024-12-23 14:52 | W.PN.HOSP.TC ---
Today's Communication/Plan
-
d/c planning for [facility] rehab
Assessment / Plan
Assessment / Plan
84yo F with PMHX of CAD s/p CABG, HTN, HLD, MDD came with chest pain, managed for NSTEMI, developed stroke after cardiac cath on 12/17/24
#NSTEMI
s/p CABG in 2003
s/p cardiac cath on 12/17/24 - advised medical mgmt
Cardiology follows
Echo 12/16/2024: EF 55 to 60%, no WMA, posterior MAC with mild MR, aortic sclerosis without stenosis, moderate to severe TR with PAP 36 mmHg
#Afib on ELiquis, paroxysmal
Eliquis has been restarted on 12/22
#Fall with right frontal scalp hematoma
CT head normal.
#4 mm focus of restricted diffusion within the left caudate/parker radiata consistent with acute infarction
Stroke after cardiac cath
Neurology followed: advised ELiquis to be reatrtedon 12/22/24
PT/OT and recommended Acute Rehab
LDL 43
Cont statin
Hgba1c 6.1% - preDM, low carb diet advised
CTA: Carotid calcified plaque, as described. On the right, proximal ICA estimated luminal diameter reduction of 50%. On the left, proximal ICA estimated luminal diameter reduction of less than 50%. No occlusion. No dissection
#Essential HTN
#HLD
cont home meds
DVT ppx on SCDs
Full code
Anticipated Discharge: Within 24 hours
Subjective/Interval History
-
Date of Service: December 23, 2024
Resting comfortably in bed
No new issues reported overnight
Objective Data
-
Vital Signs:
Vital Signs
Temp Pulse Resp BP Pulse Ox
98.1 F 70 16 102/64 94
12/23/24 11:27 12/23/24 11:27 12/23/24 11:27 12/23/24 11:27 12/23/24 11:27
I&O
12/22/24 12/23/24 12/24/24
06:59 06:59 06:59
Intake Total 1140 / 1140 180 / 180
Output Total 1200 / 1200
Balance -1200 / -1200 1140 / 1140 180 / 180
Review of Systems
-
Respiratory: Reports No Symptoms
Cardiac: Reports No Symptoms
Abdomen/GI: Reports No Symptoms
Physical Exam
-
General: No Apparent Distress and Comfortable
HEENT: Negative Oxygen
Respiratory: Clear to Auscultation
Cardiac: Regular Rhythm and S1/S2; Negative Murmur or Rub
GI: Soft, Nontender, Nondistended and Normal Bowel Sounds
Musculoskeletal: No Edema
Neuro: Awake, Alert, Oriented, No Motor Deficits and Nonfocal/Grossly Intact
Psych: Calm
[2024-12-23] MEDS: ASPIR LOW (ENTERIC COATED) 81 MG PO (21:52)
[2024-12-23] MEDS: COZAAR 25 MG PO (21:52)
[2024-12-23] MEDS: MELATONIN 3 MG PO (21:52)
[2024-12-24 03:22] VITALS: BP 149/61
[2024-12-24 06:00] VITALS: BMI 39.9
[2024-12-24 07:21] LABS: Hematocrit 35.9 % (37.0-47.0); Mean Corp Hgb Conc. 33.4 g/dL (33.0-37.0); Mean Corpuscular Hgb 28.6 pg (27.0-31.0); Mean Corpuscular Volume 85.7 fL (81.0-99.0); Mean Platelet Volume 12.2 fL (7.4-10.4); Platelet Count 189 10^3/uL (130-400); Red Blood Cell Count 4.19 10^6/uL (4.20-5.40); Red Cell Dist. Width 14.9 % (11.5-14.5); White Blood Cell Count 8.4 10^3/uL (4.8-10.8)
[2024-12-24] MEDS: LEXAPRO 10 MG PO (07:29)
[2024-12-24] MEDS: NORVASC 5 MG PO (07:29)
[2024-12-24] MEDS: HIPREX 1 GRAM PO (07:29)
[2024-12-24] MEDS: CRESTOR 40 MG PO (07:29)
[2024-12-24] MEDS: OCUVITE SOFTGEL 1 CAP PO (07:29)
[2024-12-24 07:30] VITALS: BP 132/68
[2024-12-24] MEDS: ELIQUIS 5 MG PO (07:30)
[2024-12-24] MEDS: VITAMIN C 500 MG PO (07:30)
--- NOTE | 2024-12-24 10:54 | CM ---
CM reviewed chart, patient seen bedside, discussed discharge plan to [facility]. IMM verbally reviewed, agreeable to discharge, placed in chart. [facility] able to accept after 11:30 a.m. CM will continue to follow for all discharge planning needs.
Plan: [facility]-
Report: [phone]
--- NOTE | 2024-12-24 11:33 | W.PN.HOSP.TC ---
Today's Communication/Plan
-
dc
Assessment / Plan
Assessment / Plan
84yo F with PMHX of CAD s/p CABG, HTN, HLD, MDD came with chest pain, managed for NSTEMI, developed stroke after cardiac cath on 12/17/24. Eliquis restarted, repeated CT head showed no extension of hematoma. PT/OT and recommended Acute Rehab.
Medically stable for d/c
#NSTEMI
s/p CABG in 2003
s/p cardiac cath on 12/17/24 - advised medical mgmt
Cardiology follows
Echo 12/16/2024: EF 55 to 60%, no WMA, posterior MAC with mild MR, aortic sclerosis without stenosis, moderate to severe TR with PAP 36 mmHg
#Afib on ELiquis, paroxysmal
Eliquis has been restarted on 12/22
#Fall with right frontal scalp hematoma
CT head normal.
#4 mm focus of restricted diffusion within the left caudate/parker radiata consistent with acute infarction
Stroke after cardiac cath
Neurology followed: advised ELiquis restarted on 12/22/24
PT/OT and recommended Acute Rehab
LDL 43
Cont statin
Hgba1c 6.1% - preDM, low carb diet advised
CTA: Carotid calcified plaque, as described. On the right, proximal ICA estimated luminal diameter reduction of 50%. On the left, proximal ICA estimated luminal diameter reduction of less than 50%. No occlusion. No dissection
#Essential HTN
#HLD
cont home meds
DVT ppx on SCDs
Full code
Anticipated Discharge: Today
Subjective/Interval History
-
Date of Service: December 24, 2024
Objective Data
-
Labs:
Laboratory Results
12/24/24
07:03
WBC 8.4
Hgb 12.0
Hct 35.9 L
Plt Count 189
Vital Signs:
Vital Signs
Temp Pulse Resp BP Pulse Ox
98.4 F 76 24 132/68 97
12/24/24 07:30 12/24/24 07:30 12/24/24 07:30 12/24/24 07:30 12/24/24 07:30
I&O
12/23/24 12/24/24 12/25/24
06:59 06:59 06:59
Intake Total 1140 / 1140 580 / 580 480 / 480
Balance 1140 / 1140 580 / 580 480 / 480
Review of Systems
-
History Source: Patient
All other systems: Reviewed and negative
Physical Exam
-
General: No Apparent Distress
HEENT: Normocephalic
Cardiac: Regular Rhythm
Neuro: Awake, Alert, Oriented and AO x 3
Psych: Calm
--- NOTE | 2024-12-24 11:37 | W.DCSUMMARY ---
Discharge Summary
Discharge Data
Date of Admission: 12/16/24
Date of Discharge: 12/24/24
-
Pending Results: No
Hospital Course
84yo F with PMHX of CAD s/p CABG, HTN, HLD, MDD came with chest pain, managed for NSTEMI, developed stroke after cardiac cath on 12/17/24. Eliquis restarted, repeated CT head showed no extension of hematoma. PT/OT and recommended Acute Rehab.
Amlodipine increased. Toprolstoppe d2/2 episodes of bradycardia on tele. Medically stable for d/c
I have spent at least 37min reviewing chart, test results, communication with consultants and direct patient care
Patient was managed for:
#NSTEMI
#Afib on ELiquis, paroxysmal
#Fall with right frontal scalp hematoma
#4 mm focus of restricted diffusion within the left caudate/parker radiata consistent with acute infarction
#Essential HTN
#HLD
Discharge Plan
-
Patient Disposition: Acute Rehab Facility
Discharge Diagnosis/Procedures: Cardiac cath, CVA
Condition: Fair
Diet: Low Cholesterol and 2 Gram Sodium
Activity: As tolerated
Driving Restrictions: No driving for 24 hours
Stand Alone Forms: DC Instructions- Cath/EP Lab
Referrals:
Nancy Quach MD [Family Provider] - in one week
Danika Smith MD [Active] - 02/16/25 9:20 am
Prescriptions:
New
acetaminophen 325 mg Tablet
650 mg PO Q6HPRN PRN (Reason: mild pain/ fever>100.5F) Qty: 30 0RF
amlodipine 5 mg Tablet
5 mg PO DAILY Qty: 30 0RF
Continued
aspirin 81 MG tablet,delayed release (DR/EC)
81 mg PO HS
losartan 25 MG tablet
25 mg PO HS
rosuvastatin [Crestor] 40 MG tablet
40 mg PO DAILY
nitroglycerin 0.4 MG tablet, sublingual
0.4 mg sublingual [id number] PRN (Reason: chest pain)
PreserVision AREDS-2 1 EACH capsule
1 ea PO BID
Eliquis 5 mg tablet
5 mg PO BID
omega-3 acid ethyl esters [Lovaza] 1 gram Capsule
1 cap PO BID
polyethylene glycol 3350 [Miralax] 17 gram Powder In Packet
17 g PO DAILYPRN PRN (Reason: constipation)
methenamine hippurate 1 gram tablet
1 g PO BID
ascorbic acid (vitamin C) 500 mg Tablet
500 mg PO BID
escitalopram oxalate 10 mg tablet
10 mg PO DAILY
Discontinued
amlodipine 2.5 MG tablet
2.5 mg PO DAILY
metoprolol succinate 25 mg tablet extended release 24 hr
12.5 mg PO DAILY
Discharge Orders:
Discharge Patient (As Directed); Ordered 12/24/24
Ordered By: Fernando Reaves
Care Plan Goals
Care Plan Goals:
Problem: Readiness for enhanced knowledge related to diagnosis and treatment plan
Goal: Understand your diagnosis and treatment plan needs, including medications if applicable.
Instructions: Know your diagnosis, underlying causes and treatment plan options, including medications if applicable. Consult with your health care team to learn about your diagnosis and treatment plan, including medications if applicable.
Discharge Date and Time
Print Language: MAURITIAN
[2024-12-24 11:41] VITALS: BP 114/56
== END 2024-12-24 15:19 | DRG 280 ==
LOC: 4 WEST ACU 13:17
PROVIDERS: Emergency Medicine; Internal Medicine; Internal Medicine Interventional Cardiology; Nurse Practitioner Family; Physician Assistant Medical; ADMITTING PHYSICIAN Internal Medicine; ATTENDING PHYSICIAN Internal Medicine; CONSULT PHYSICIAN Internal Medicine Cardiovascular Disease; CONSULT PHYSICIAN Physical Medicine & Rehabilitation; CONSULT PHYSICIAN Psychiatry & Neurology Neurology; EMERGENCY PHYSICIAN Emergency Medicine; FAMILY PHYSICIAN Family Medicine
PROC: B2111ZZ Fluoroscopy of Multiple Coronary Arteries using Low Osmolar Contrast (ICD-10-PCS; 2024-12-17)
PROC: 4A023N7 Measurement of Cardiac Sampling and Pressure, Left Heart, Percutaneous Approach (ICD-10-PCS; 2024-12-17)
PROC: B3101ZZ Fluoroscopy of Thoracic Aorta using Low Osmolar Contrast (ICD-10-PCS; 2024-12-17)
PROC: B2131ZZ Fluoroscopy of Multiple Coronary Artery Bypass Grafts using Low Osmolar Contrast (ICD-10-PCS; 2024-12-17)
DX: I21.4 Non-ST elevation (NSTEMI) myocardial infarction (principal); I63.412 Cerebral infarction due to embolism of left middle cerebral artery; I25.810 Atherosclerosis of coronary artery bypass graft(s) without angina pectoris; G93.40 Encephalopathy, unspecified; R47.01 Aphasia; Z68.41 Body mass index [BMI] 40.0-44.9, adult; I48.0 Paroxysmal atrial fibrillation; Z79.01 Long term (current) use of anticoagulants; W19.XXXA Unspecified fall, initial encounter; S00.03XA Contusion of scalp, initial encounter; E78.00 Pure hypercholesterolemia, unspecified; I10 Essential (primary) hypertension; I25.10 Atherosclerotic heart disease of native coronary artery without angina pectoris; Z90.49 Acquired absence of other specified parts of digestive tract; Z88.0 Allergy status to penicillin; Z88.8 Allergy status to other drugs, medicaments and biological substances; Z79.82 Long term (current) use of aspirin; F32.A Depression, unspecified; Z86.73 Personal history of transient ischemic attack (TIA), and cerebral infarction without residual deficits; Z90.710 Acquired absence of both cervix and uterus; Z79.899 Other long term (current) drug therapy; F41.0 Panic disorder [episodic paroxysmal anxiety]; I70.0 Atherosclerosis of aorta; I08.1 Rheumatic disorders of both mitral and tricuspid valves; J45.909 Unspecified asthma, uncomplicated; K59.00 Constipation, unspecified; R32 Unspecified urinary incontinence; E66.01 Morbid (severe) obesity due to excess calories
CPT/HCPCS: 70450; 70496; 70498; 70551; 71046; 80048; 80053; 80061; 81003; 81015; 82962; 83605; 83735; 84443; 84484; 85025; 85027; 85610; 85730; 92507; 92523; 92610; 93005; 93306; 93459; 93567; 94640; 97116; 97129; 97163; 97167; 97530; 99152; 99153; 99285; C1894; Q9967

== ENCOUNTER 2025-01-13 06:35 | Outpatient (RCR) | payer MEDICARE, OTHER, SELFPAY | END 2025-01-13 23:59 | disposition home or self-care (01) | LOC: ROT 06:35 | PROVIDERS: ATTENDING PHYSICIAN Physical Medicine & Rehabilitation; FAMILY PHYSICIAN Family Medicine | DX: I69.918 Other symptoms and signs involving cognitive functions following unspecified cerebrovascular disease (principal); R26.81 Unsteadiness on feet; M54.50 Low back pain, unspecified; M25.511 Pain in right shoulder; Z73.6 Limitation of activities due to disability | CPT/HCPCS: 97110; 97112; 97163; 97167; 97530; 97535 ==

== ENCOUNTER 2025-02-06 06:09 | Emergency (ER) | payer MEDICARE, OTHER, SELFPAY ==
[2025-02-06] VITALS (9 sets, daily range): BP systolic 90–119; BP diastolic 38–103; BMI 40.4
--- NOTE | 2025-02-06 06:56 | ED.GENMED ---
History of Present Illness
General
Chief Complaint: Chest Pain
Source: patient
Time Seen by Provider: 02/06/25 06:32
History of Present Illness
History of Present Illness:
84-year-old female presents to the emergency room complaining of palpitations and some mild chest pain. She was frightened by the fact her heart was racing. She does have a history of paroxysmal atrial fibrillation. Patient was recently
hospitalized for A-fib and chest pain. She had a cardiac catheterization which showed suspected 100% occlusion of a bypass graft but no stentable lesions. I arrived in the patient's room she had spontaneously converted to sinus rhythm. She is
asymptomatic at this time. She states she feels basically back to normal. Her medical intern is Dr. Danika Smith.
Past History
Past History
ED Past Medical History: Asthma, CAD, HTN, Hypercholesterolemia, Valvular disease and Other (Urinary incontinence)
ED Past Surgical History: Appendectomy, Cardiac, , Tonsilectomy and Other
Social History
Tobacco: Non-smoker
Alcohol: Occasional
Drug: None
Personal:
Living: alone
Employment: Retired
Family History
Family History: Other
Phy Exam
Physical Exam
Physical Exam:
General: Awake, Alert, Oriented X3. No acute distress.
Vitals: unremarkable
Head: Atraumatic
Eyes: Pupils equal, EOMI
Throat: Airway intact, no exudates
Neck: Trachea midline
Lungs: Clear and equal b/l
Heart: Regular rate, 2/6 murmurs
Abd: Soft, Nontender, No pulsatile mass
Neuro: Nonfocal
Skin: Warm, dry, no rash
Extremities: pulses equal b/l, no edema
Scores
Heart Score for Chest Pain Patients
STEMI patient?: Not applicable
Course
Orders/Labs/Results
Orders:
Orders
02/06/25 06:24
ECG [Electrocardiogram (*1)] Urgent
Reason for Study: Chest Pain
EKG- Treatment ONCE
02/06/25 06:56
Complete Blood Count/With Diff Urgent
Comprehensive Metabolic Panel Urgent
Free T4 Urgent
TSH Reflex To Free T4 Urgent
Comment: ADD
Troponin I Urgent
02/06/25 12:08
Add On- LAB Routine
Tests Added?: TSH with reflex to free T4
Abnormal Lab Results
02/06/25
06:56
RDW 14.6 H %
(11.5-14.5)
MPV 11.9 H fL
(7.4-10.4)
Absolute Monos (auto) 0.7 H 10^3/uL
(0.1-0.6)
Monocytes % 11.3 H %
(1.7-9.3)
BUN 24 H mg/dl
(7-17)
Glucose 115 H mg/dl
(70-99)
TSH (Reflex) 0.09 L uIU/ml
(0.47-4.68)
02/06/25 06:56
02/06/25 06:56
Vital Signs
Initial and Last Documented VS:
Initial Vital Signs
BP
115/79
02/06/25 06:20
Last Documented Vital Signs
Temp Pulse Resp BP Pulse Ox
98.5 F 53 25 113/51 97
02/06/25 06:22 02/06/25 13:30 02/06/25 13:30 02/06/25 13:00 02/06/25 13:30
MDM/Problems Addressed
Differential Diagnosis Includes:
Paroxysmal atrial fibrillation, frequent PACs, electrode abnormality
MDM/Problems Addressed:
Patient arrived with atrial fibrillation and rapid ventricular response. She is spontaneously converted to normal sinus rhythm. Pt maintained NSR during period of observation. Stable for discharge and outpt followup.
*Pulse Oximetry
Patient hypoxic: no
*EKG
Interpreted by ED Provider?: Yes
Heart Rate: 62
Rate: normal
Rhythm: sinus and PAC's
[place]: normal axis
Interval: normal interval
QRS Pattern: normal QRS
Ischemia: no ischemia
*Supervisor [employer] Interpretation
Rate: normal
Interpretation: normal
Rhythm: sinus
*Critical Care Note
Total Time (30-74mins, 75-104mins- exclusive of procedures): Not Applicable
Patient Management
Social determinants of health affecting care: Strong social support
ED Attending Note
-
Portions of this chart may have been created with voice recognition software.� Occasional wrong word or��sound alike� substitutions may have occurred due to the inherent limitations of voice recognition software.
Discharge Plan
Departure
Patient Disposition: Home (Routine Discharge)
Date of Disposition: 02/06/25
Time of Disposition: 13:16
Patient with high blood pressure during this ER visit?: No
Condition: Good
Discharge Problem:
Paroxysmal atrial fibrillation
Instructions: Atrial fibrillation - Discharge instructions
Prescriptions:
No Action
aspirin 81 MG tablet,delayed release (DR/EC)
81 mg PO HS
losartan 25 MG tablet
25 mg PO HS
rosuvastatin [Crestor] 40 MG tablet
40 mg PO DAILY
nitroglycerin 0.4 MG tablet, sublingual
0.4 mg sublingual [id number] PRN (Reason: chest pain)
PreserVision AREDS-2 1 EACH capsule
1 ea PO BID
polyethylene glycol 3350 [Miralax] 17 gram Powder In Packet
17 g PO DAILYPRN PRN (Reason: constipation)
escitalopram oxalate 10 mg tablet
10 mg PO DAILY
amlodipine 2.5 mg Tablet
2.5 mg PO DAILY 30 Days Qty: 30 0RF
pantoprazole 20 mg Tablet,Delayed Release (Dr/Ec)
20 mg PO DAILY 30 Days Qty: 30 0RF
docusate sodium 100 mg Capsule
100 mg PO BID 30 Days Qty: 60 0RF
diclofenac sodium 1 % Gel
1 g topical QID PRN (Reason: right shoulder pain) 30 Days Qty: 25 0RF
acetaminophen 325 mg Tablet
650 mg PO Q6HPRN PRN (Reason: mild pain) Qty: 30 0RF
Eliquis 5 mg tablet
5 mg PO BID 30 Days Qty: 60 0RF
methenamine hippurate 1 gram tablet
1 g PO BID 30 Days Qty: 60 0RF
Referrals:
Danika Smith MD [Active] -
UNKNOWN - PT DOES,NOT KNOW [Family Provider] -
Activity Restrictions/Additional Instructions:
Please follow-up with Dr. Smtih. Return to the emergency room should you feel you are back in A-fib or have any concerns at not doing well.
Interventions
Interventions:
*Risk Screen - Suicide Last Done: 02/06/25 06:22
*General Assessment Last Done: 02/06/25 06:22
*Neglect/Abuse Screening Last Done: 02/06/25 06:22
*ED- Fall Risk Assessment Last Done: 02/06/25 06:32
*ED COVID-19 Vaccine History Last Done: 02/06/25 13:46
*Nursing Disposition Last Done: 02/06/25 13:46
ED- Cardiac Assessment Last Done: 02/06/25 06:47
Discharge Date and Time
Discharge Date/Time: 02/06/25 13:47
Print Language: OCCITAN
[2025-02-06 07:03] LABS: % Eosinophils 5.4 % (0-6); % Immature Granulocytes 0.2 % (0-0.5); % Lymphocytes 35.2 % (20.5-51.1); % Monocytes 11.3 % (1.7-9.3); % Neutrophils 46.9 % (42.2-75.2); Absolute Basophils 0.1 10^3/uL (0-0.2); Absolute Eosinophils 0.3 10^3/uL (0-0.7); Absolute Lymphocytes 2.2 10^3/uL (1.2-3.4); Absolute Monocytes 0.7 10^3/uL (0.1-0.6); Absolute Neutrophils 2.9 10^3/uL (1.4-6.5); Hematocrit 38.8 % (37.0-47.0); Hemoglobin 13.1 g/dL (12.0-16.0); Mean Corp Hgb Conc. 33.8 g/dL (33.0-37.0); Mean Corpuscular Hgb 29.3 pg (27.0-31.0); Mean Corpuscular Volume 86.8 fL (81.0-99.0); Mean Platelet Volume 11.9 fL (7.4-10.4); Nucleated Red Blood Cells % 0 %; Platelet Count 159 10^3/uL (130-400); Red Blood Cell Count 4.47 10^6/uL (4.20-5.40); Red Cell Dist. Width 14.6 % (11.5-14.5); White Blood Cell Count 6.1 10^3/uL (4.8-10.8)
[2025-02-06 07:22] LABS: ALT (SGPT) 17 U/L (0-35); AST (SGOT) 29 U/L (14-36); Albumin 4.1 g/dl (3.5-5.0); Alkaline Phosphatase 84 U/L (38-126); Blood Urea Nitrogen 24 mg/dl (7-17); Calcium 9.9 mg/dl (8.4-10.2); Carbon Dioxide 26 mmol/L (22-30); Chloride 105 mmol/L (98-107); Estimated Creatinine Clearance 44 ml/min; Glucose 115 mg/dl (70-99); Potassium 4.4 mmol/L (3.5-5.1); Sodium 137 mmol/L (135-145); Total Bilirubin 0.5 mg/dl (0.2-1.3); Total Protein 6.9 g/dl (6.3-8.2); eGFR > 60.00
[2025-02-06 07:34] LABS: Troponin I < 0.012 ng/ml
--- NOTE | 2025-02-06 13:08 | CON.CAR ---
Addendum entered and electronically signed by Hardik Green MD 02/06/25 16:18:
I saw and examined the patient.
The Se[employer] T[employer] Operator's note was reviewed and I agree with the note.
Comment:
GEN: No distress, awake, Ox3
HEENT: supple, anicteric, mmm
LUNGS: CTA, no wheezes/rales
CV: Reg, S1/S2, 1/6 syst LSB, no gallop
ABD: soft, BS+, NT/ND
EXT: No edema
NEURO: Gross non-focal
SKIN: No rash
plan:
She has a complicated 84-year-old female with past medical history of coronary status post CABG 2023, recent non-STEMI November 2024 treated medically status post cardiac cath. She then had a left MCA stroke post cath in November 2024. She has a
past medical history of paroxysmal atrial fibrillation and sick sinus syndrome and sinus bradycardia. Today she woke up was having intermittent episodes of chest discomfort and was found to be in A-fib with rapid ventricular rates. The patient
spontaneously converted back into sinus rhythm the emergency room with resting heart rates in the 45-60 range. She denies lightheaded or dizziness. Cardiac troponin normal.
Her beta-kaz has recently been decreased due to resting sinus bradycardia.
I had a lengthy discussion with her and her family. We discussed several options including permanent pacemaker. Other options would be to pursue possible ablation, although to maintain sinus rhythm she may need antiarrhythmic therapy or
beta-kaz therapy even with ablation.
They are going to think about both of these options have an appointment with Dr. Danika umaña in 1 week.
We agreed that if she has further episodes of highly symptomatic A-fib that she could return to the emergency room where we would consider pacemaker sooner. There is a high likelihood that she will have recurrent atrial fibrillation at some point.
Continue medical therapy for coronary artery disease.
Original Note:
Consultation
Consultation Request
Date/Time Consultation Performed: 02/06/25
Requesting Provider: Dr. Ramirez
Performing Provider: Viv Sweeney PA-C for Dr. Green
Reason for Consultation: tachybrady
Medical History
-
Chief Complaint: CP
History of Present Illness:
Patient is an 84 yo F with PMH of CAD status post CABG in 2003, more recently NSTEMI 11/2024 resulting in cardiac catheterization with presumed occlusion of SVG�RPDA/RPL with 100% proximal RCA occlusion with collaterals. This was medically managed.
Postcardiac cath she had a left MCA CVA and has mild residual word finding difficulty. She also has history of paroxysmal A-fib and A. tach. She had previously been on Toprol, however this was de-escalated and subsequently stopped due to sinus
bradycardia. She is chronically on Eliquis therapy. Cardiology consulted as patient was noted to have chest discomfort which started yesterday evening, however persisted through to be in A-fib with RVR. Patient tells me that her 'tell' with A-fib
is normally chest discomfort. She spontaneously converted in the emergency room, and has no persistent symptoms. Initial troponin negative. Initially post conversion heart rate was sinus bradycardia in the 40s, however now is improved in the 60s.
She is without lightheadedness or dizziness. Cardiology consulted for evaluation
PMH:
CAD
s/p CABG with [place]OD[place] to LAD, SVG to PDA and RPL and SVG to Diag-11 and OM-1 2003
NSTEMI s/p cath 12/17/24 with severe [place] CAD, patent WO[place] to LAD and SVG to OM1/diag, presumed occlusion of SVG-RPDA/RPL with 100% prox RCA occlusion with collaterals
Paroxysmal A-fib/atrial tachycardia
Chronic Eliquis OAC
History of L MCA CVA 11/2024
Bradycardia
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
HTN
Hyperlipidemia
Asthma
Past Medical History
Past Medical History: Other (in HPI)
Past Surgical History: Appendectomy, Cardiac (cABG 2003), Gynecological (HYSTERECTOMY), Orthopedic and Tonsilectomy
Social History
Tobacco: Non-Smoker
Alcohol: None
Drug: None
Living: With Family
Family History
Family History: CAD, Diabetes and Other (Emphysema, Crohn's disease)
Allergies / Home Medications
Allergy/AdvReac Type Severity Reaction Status Date / Time
ezetimibe [From Zetia] Allergy Unknown Verified 02/06/25 06:30
penicillin G Allergy Hives- Verified 02/06/25 06:30
tolerated
ceftriaxone
in 2017
Apkzhvf-TTF-KrQ Reductase Allergy drowsiness Verified 02/06/25 06:30
Inhibitor
[Cacrvnm-Hbz-Gqf Reductase
Inhibitor]
venom-honey bee Allergy SWELLING Verified 02/06/25 06:30
THROAT
vitamin E (d-alpha Allergy Unknown Verified 02/06/25 06:30
tocopherol)
�Medication �Instructions �Recorded �Confirmed �Type
aspirin 81 mg tablet,delayed 81 mg PO HS Blood Clot 06/13/17 12/24/24 History
release Prevention/Tx
losartan 25 mg tablet 25 mg PO HS Blood Pressure 06/13/17 12/24/24 History
rosuvastatin 40 mg tablet (Crestor) 40 mg PO DAILY High Cholesterol 06/13/17 12/24/24 History
nitroglycerin 0.4 mg sublingual 0.4 mg sublingual [id number] PRN 07/24/19 12/24/24 History
tablet chest pain
vit C 250 mg-vit E 90 mg-zinc 40 1 ea PO BID Supplement 07/24/19 12/24/24 History
mg-copper 1 [id number]
capsule (PreserVision AREDS-2)
escitalopram oxalate 10 mg tablet 10 mg PO DAILY Mental 12/16/24 12/24/24 History
Health/Anxiety
polyethylene glycol 3350 17 gram 17 g PO DAILYPRN PRN constipation 12/16/24 12/24/24 History
oral powder packet (Miralax)
acetaminophen 325 mg tablet 650 mg (2 x 325 mg) PO Q6HPRN PRN 01/05/25 12/24/24 Rx
mild pain #30 tabs
amlodipine 2.5 mg tablet 2.5 mg PO DAILY Blood pressure 30 01/05/25 Rx
days #30 tabs
apixaban 5 mg tablet (Eliquis) 5 mg PO BID Blood Clot 01/05/25 Rx
Prevention/Tx/atrial fibrillation
30 days #60 tabs
diclofenac sodium 1 % topical gel 1 g topical QID PRN right shoulder 01/05/25 Rx
pain 30 days #25 grams
docusate sodium 100 mg capsule 100 mg PO BID Constipation 30 days 01/05/25 Rx
#60 caps
methenamine hippurate 1 gram tablet 1 g PO BID Urinary Issue 30 days 01/05/25 Rx
#60 tabs
pantoprazole 20 mg tablet,delayed 20 mg PO DAILY Gastrointestinal 01/05/25 Rx
release issue 30 days #30 tabs
Review of Systems
-
History Source: Patient and Family
All other systems: Negative unless noted
Physical Exam
Vital Signs
Temp Pulse Resp BP Pulse Ox
98.5 F 56 19 96/49 94
02/06/25 06:22 02/06/25 12:30 02/06/25 12:30 02/06/25 12:00 02/06/25 12:30
Lab Results
02/06/25 06:56
02/06/25 06:56
Troponin I < 0.012 ng/ml 02/06/25 06:56
Physical Exam
General: No Apparent Distress and Comfortable
HEENT: Normocephalic, Anicteric and Moist Mucous Membranes
Respiratory: Clear and Non Labored Respirations
Cardiac: S1/S2 and Regular Rhythm
GI: Soft, Non Tender, Non Distended and Normal Bowel Sounds
Musculoskeletal: No Clubbing, No Cyanosis and Edema (mild of B/L LE)
Skin: Warm and Dry
Neuro: AO x 3
Impression / Plan
-
Primary Electrical Prospecting Supervisor: Dr. Danika Smith
Assessment:
Presentation with CP
Negative troponin
Afib with RVR s/p spontaneous conversion to SR in ER
Sinus bradycardia
CAD
s/p CABG with [place] to LAD, SVG to PDA and RPL and SVG to Diag-11 and OM-1 2003
NSTEMI s/p cath 12/17/24 with severe [place] CAD, patent [place] to LAD and SVG to OM1/diag, presumed occlusion of SVG-RPDA/RPL with 100% prox RCA occlusion with collaterals
Paroxysmal A-fib/atrial tachycardia
Chronic Eliquis OAC
History of L MCA CVA 11/2024
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
HTN
Hyperlipidemia
Asthma
ECHO 12/16/24: EF 55 to 60%, posterior MAC, mild MR, aortic sclerosis, trace AR, moderate to severe TR, PAP 36 mmHg
Plan:
-Patient presents to ER with chest pain, her 'tell' of being in atrial fibrillation. Was in A-fib with RVR on arrival, and spontaneously converted to sinus rhythm. Initially upon conversion was sinus bradycardic with heart rates in 40s, however
this has improved and at time of my examination his heart rates in 60s in sinus rhythm on telemetry.
-Cardiology consulted due to evidence of tachybradycardia syndrome
-Not noted to have evidence of pauses, or AV block on review of tele. Patient was asymptomatic with bradycardia and presently feels well. No urgent indication for pacemaker at this time
-We discussed options for treatment of tachybradycardia syndrome including ablation to hopefully cure her atrial fibrillation, versus pacemaker placement so that she can be treated for atrial fibrillation with AV andria blocking agents. Of note she
was on Toprol in the past however this was stopped in the last several months due to bradycardia. She will discuss options further with her primary ad setter at upcoming office visit 02/16/2025. We also discussed outpatient EP evaluation to
discuss further.
-Continue Eliquis
-Her chest pain has resolved with conversion to sinus rhythm. Troponin negative. She had recent cath 12/17/2024 with occlusion of SVG�RPDA/RPL with 100% proximal RCA occlusion with collaterals and otherwise patent prior bypass grafts. Continue
outpatient Norvasc, aspirin, statin
-recent echo 12/16/24 as above
-Ambulate patient in the ER. if stable okay for discharge from cardiac standpoint with OP cardiac follow up as scheduled
-reviewed concerning symptoms which would necessitate call to office vs return to ER
-d/w 3 daughters at bedside as well as additional daughter on speaker phone
-d/w ER physician
Data Reviewed
-
EKG: Tracing Personally Visualized and interpreted
Medical Tests (Nuc Med, Echo etc): Report Reviewed by me
Labs: Labs Reviewed by me
Old Records: Reviewed
[2025-02-06 15:40] LABS: TSH Reflex To Free T4 0.09 uIU/ml (0.47-4.68)
[2025-02-06 16:10] LABS: Free T4 0.98 ng/dl (0.78-2.19)
== END 2025-02-06 13:47 | disposition home or self-care (01) ==
LOC: EMR 06:09
PROVIDERS: Student in an Organized Health Care Education/Training Program; EMERGENCY PHYSICIAN Emergency Medicine
DX: R07.89 Other chest pain (principal); R00.2 Palpitations; I48.0 Paroxysmal atrial fibrillation; E78.00 Pure hypercholesterolemia, unspecified; I10 Essential (primary) hypertension; I25.10 Atherosclerotic heart disease of native coronary artery without angina pectoris; I08.0 Rheumatic disorders of both mitral and aortic valves; J45.909 Unspecified asthma, uncomplicated; Z79.01 Long term (current) use of anticoagulants; Z82.49 Family history of ischemic heart disease and other diseases of the circulatory system; Z83.3 Family history of diabetes mellitus; Z83.49 Family history of other endocrine, nutritional and metabolic diseases; Z83.79 Family history of other diseases of the digestive system; Z86.73 Personal history of transient ischemic attack (TIA), and cerebral infarction without residual deficits; Z87.74 Personal history of (corrected) congenital malformations of heart and circulatory system; Z90.49 Acquired absence of other specified parts of digestive tract; Z90.710 Acquired absence of both cervix and uterus
CPT/HCPCS: 99283; 80053; 84439; 84443; 84484; 85025; 93005

== ENCOUNTER 2025-02-12 10:06 | Outpatient (RCR) | payer MEDICARE, OTHER, SELFPAY | END 2025-02-12 23:59 | disposition home or self-care (01) | LOC: RST 10:06 | PROVIDERS: ATTENDING PHYSICIAN Physical Medicine & Rehabilitation; FAMILY PHYSICIAN Family Medicine | DX: I69.321 Dysphasia following cerebral infarction (principal); R26.81 Unsteadiness on feet; I69.318 Other symptoms and signs involving cognitive functions following cerebral infarction; M54.50 Low back pain, unspecified; M25.511 Pain in right shoulder; Z73.6 Limitation of activities due to disability | CPT/HCPCS: 92507; 92523; 97110; 97112; 97116; 97530; 97535 ==

== ENCOUNTER 2025-02-23 09:45 | Day surgery (SDC) | payer MEDICARE, OTHER, SELFPAY ==
[2025-02-23] VITALS (9 sets, daily range): BP systolic 109–142; BP diastolic 46–68; BMI 38.4
--- NOTE | 2025-02-23 12:21 | ITS.CL.PACE ---
V Belt Skiver - Pacemaker Implant
Pacemaker Implant
Procedure Report:
PACEMAKER IMPLANT REPORT
Primary Care Provider: Dr Nancy Quach
Primary tick eradicator: Dr Danika Smith
Date of Procedure: 02/23/25
Procedure:
Implantation of dual-chamber permanent pacemaker utilizing the left bundle branch for conduction system pacing
Indication/Diagnosis:
Non-reversible symptomatic bradycardia due to sinus node dysfunction.
HISTORY:
Paroxysmal atrial fibrillation with tachycardia-bradycardia syndrome.
After informed consent was obtained, 'time out' was called and confirmed, the patient was prepped and draped in a sterile fashion. Lidocaine with epi was used for local anesthesia. Central venous access was obtained via subclavian venipuncture. An
incision was made along the left chest and a pre-pectoral pocket was formed. Using a Seldinger technique and peel-away sheaths, the pacing leads were placed under fluoroscopic guidance.
Fluoroscopy was used to determine likely anatomic site for left bundle branch pacing. The Medtronic C315 sheath was used to deliver the Medtronic 3830 Selectsecure pacing lead with the helix exposed just exposed from the sheath tip during continuous
monitoring when pacemapping the septum during gentle clockwise rotation to obtain a paced QRS morphology of a W pattern in lead V1. Once the suspected optimal site was identified, lead deployment was performed with several rapid rotations as paced
QRS morphology was intermittently monitored until a paced QRS complex in lead V1 demonstrated development of an R wave (rSR).
Unipolar pacing impedance dropped by approximately 100 ohms suggesting it had reached the left ventricular subendocardial.
Stable VEgm injury current is present throughout final lead position including at end of case, suggesting there was no perforation through the septum into the LV cavity.
Unipolar pacing impedance is 1000 Ohms
Unipolar pacing threshold is stable at 1 V @ 0.4 ms.
Final conduction system paced QRS complex duration is 106 ms
LVAT is 87 ms and peak V5 -> peak V1 timing is 40 ms
There is QRS transition to LVSP / selective LBBP during threshold testing
Right atrial lead was placed at the RAA.
Once testing (see below) showed adequate and stable function, the leads were secured using the suture sleeves. The pocket was liberally irrigated with antibiotic solution. The leads were connected to the generator header and the leads and
generator were placed within the pocket. Fluoroscopy confirmed stable lead position. The pocket was closed in the typical fashion.
Fluoroscopy was used to guide lead placement.
IMPLANTS:
Medtronic [id number], SN: [id number], Left Pectoral
RA: Medtronic 5076-45, SN: [id number] V, RAA
Left Bundle: Medtronic 3830 , SN:[id number], Interventricular septum at LBB
DEVICE TESTING:
Sensing: RA 1.5 mV, RV 8 mV
Capture: RA 1 V@0.4ms, RV 0.5 V@0.4ms
Ohms: RA 680 , RV 890
FINAL PROGRAMMING
Felix Pacing: AAIR+ 60-130 ppm
COMPLICATIONS:
None
CONCLUSIONS:
Successful implant of dual chamber permanent pacemaker utilizing Left Bundle Branch conduction system capture for ventricular resynchronization pacing.
RECOMMENDATIONS:
Initiate amiodarone 200 mg twice daily for 3 weeks which will then be reduced to 200 mg daily
Resume Eliquis
Post-op care (tele, CXR, IV abx)
Incision check is scheduled for March 02, 2025
Copy to:
Dr Nancy Quach
Dr Danika Smith
[2025-02-23] MEDS: VANCOCIN 530 MG IV (12:25)
--- NOTE | 2025-02-23 15:32 | PTCARENOTE ---
Received into room 2243. AOx3, drowsy, but easily arousable. VSS. A paced rhythm w/ PVCs, HR low 60s on telemetry. Aquacell w/ pressure dressing to L chest wall and L arm immobilizer clean, dry, and maintained. Plan of care discussed. 2 daughters at
the bedside.
[2025-02-23] MEDS: ASPIR LOW (ENTERIC COATED) 81 MG PO (17:58)
[2025-02-23] MEDS: COZAAR 25 MG PO (17:58)
[2025-02-23] MEDS: PACERONE 200 MG PO (20:08)
[2025-02-23] MEDS: TYLENOL 650 MG PO (20:08)
--- NOTE | 2025-02-23 23:22 | PTCARENOTE ---
assumed care of patient at the change of shift. AAOx3. patient complaining of a slight headache- Tylenol given, see mar. L chest site-CDI. L arm immobilizer. reviewed activity restriction with patient and verbalized understanding. Apaced on tele-
60s. bp stable. ambulated to the bathroom with a single point cane. tolerated. reviewed plan of care with patient and verbalized understanding. call lackey within reach. makes needs known.
[2025-02-24] MEDS: TYLENOL 650 MG PO (01:05)
[2025-02-24 03:06] VITALS: BP 118/56
[2025-02-24 03:40] LABS: Hematocrit 36.1 % (37.0-47.0); Hemoglobin 12.1 g/dL (12.0-16.0); Mean Corp Hgb Conc. 33.5 g/dL (33.0-37.0); Mean Corpuscular Hgb 29.2 pg (27.0-31.0); Mean Corpuscular Volume 87.2 fL (81.0-99.0); Mean Platelet Volume 12.4 fL (7.4-10.4); Platelet Count 160 10^3/uL (130-400); Red Blood Cell Count 4.14 10^6/uL (4.20-5.40); Red Cell Dist. Width 15.1 % (11.5-14.5)
[2025-02-24 04:03] LABS: Blood Urea Nitrogen 17 mg/dl (7-17); Calcium 9.1 mg/dl (8.4-10.2); Carbon Dioxide 26 mmol/L (22-30); Chloride 109 mmol/L (98-107); Estimated Creatinine Clearance 42 ml/min; Glucose 104 mg/dl (70-99); Potassium 4.9 mmol/L (3.5-5.1); Sodium 138 mmol/L (135-145); eGFR > 60.00
[2025-02-24 06:55] VITALS: BP 107/55
--- NOTE | 2025-02-24 07:55 | W.PN.CARDCBS ---
Addendum entered and electronically signed by Virgilio Smith MD 02/25/25 11:02:
Patient seen, interviewed and examined by me.
Addendum entered and electronically signed by Virgilio Smith MD 02/24/25 16:21:
Patient seen, interviewed and examined by me.
Well-appearing, no acute distress
Dressing left upper chest is clean and dry
Regular rate and rhythm with normal S1 and S2, no S3 no S4. There is a grade 1/6 apical holosystolic murmur and no rubs. PMI is normally placed.
Lungs are clear to auscultation bilaterally without wheezes rales or rhonchi.
Abdomen soft nontender nondistended with normoactive bowel sounds
Extremities show trace pretibial edema bilaterally no clubbing or cyanosis.
Neurologic exam is grossly nonfocal.
I reviewed chest x-ray which shows normal expected position of the pacemaker and lead system. There is no pneumothorax.
I reviewed telemetry which finds atrial pacing with intact AV conduction, right sided interventricular conduction delay. Heart rate of 62 bpm
I reviewed her laboratory studies finding white blood cell count of 10, hemoglobin and hematocrit stable at 12 and 36. There is normal renal function with BUN and creatinine of 17 and 0.9, sodium 138 and potassium 4.9. Magnesium 2.
She underwent implantation of dual-chamber permanent pacemaker on February 23, 2025 for symptomatic sick sinus syndrome.
She is currently in sinus rhythm.
This is now allowed the addition of amiodarone for rhythm control. Recommendation is to maintain amiodarone 200 mg twice daily for the next 30 days then reduce to 200 mg daily.
Resume Eliquis on February 25, 2025.
I reviewed yesterday's findings and results as well as discharge instructions with activity limitations with her in detail. Her incision check is scheduled for March 02, 2025.
All of her questions have been answered.
Stable for discharge to home today.
Original Note:
Today's Communication / Plan
-
initiate amiodarone
resume eliquis tomorrow in AM
incision check next week
home today
Impression / Plan
-
PCP: Nancy Quach MD
CDY: Danika Smith MD
84 y/o, presents with non-reversible symptomatic bradycardia due to sinus node dysfunction, PAF, tachy gian syndrome. [id number]=3, maintained on eliquis. S/P DC PPM implant with left bundle pacing lead.
IMPRESSION:
Non reversible symptomatic bradycardia
PAF
Tachy gian syndrome
S/P DC PPM w/LB lead, 02/23/25
CAD w/remote CABG x5 (2003)
NSTEMI w/RCA [employer], occluded VG-RPDA (11/2024)
Left MCA CVA post CO w/residual aphasia/gait disturbance (11/2024)
Mod-sev TR
HTN
HLD
Asthma
PUD
RA
Macular degeneration
PLAN:
Tele- Apaced 60s
Device site stable
oob ambulating
Post CXR w/stable lead position, no pneumothorax
Hold eliquis post procedure- will resume on 02/25 in AM
New start amiodarone 200mg twice a day for 3 weeks, then decrease to 200mg daily
continue aspirin, metoprolol, losartan as before- stable BP
incision check next week at [facility] and followup with Dr. Garnica thereafter
activity limitations reviewed w/pt, daughter
home today
Progress Note - Phlebotomy Services Representative
Subjective
Date of Service: February 24, 2025
Denies cp/palps/dyspnea
oob ambulating
device site with mod pain relieved w/tylenol overnight
Objective
Labs:
02/24/25 03:25
02/24/25 03:25
Labs
Hgb 12.1 g/dL (12.0-16.0) 02/24/25 03:25
Hct 36.1 % (37.0-47.0) L 02/24/25 03:25
Plt Count 160 10^3/uL (130-400) 02/24/25 03:25
Sodium 138 mmol/L (135-145) 02/24/25 03:25
Potassium 4.9 mmol/L (3.5-5.1) 02/24/25 03:25
BUN 17 mg/dl (7-17) 02/24/25 03:25
Creatinine 0.9 mg/dL (0.6-1.0) 02/24/25 03:25
Glucose 104 mg/dl (70-99) H 02/24/25 03:25
Vital Signs and I&O:
Vital Signs
Temp Pulse Resp BP Pulse Ox
98.4 F 66 20 107/55 94
02/24/25 06:55 02/24/25 07:00 02/24/25 06:55 02/24/25 06:55 02/24/25 06:55
Vital Signs
Temp Pulse Resp BP Pulse Ox
98.4 F 66 20 107/55 94
02/24/25 06:55 02/24/25 07:00 02/24/25 06:55 02/24/25 06:55 02/24/25 06:55
Intake & Output
02/22/25 02/23/25 02/24/25 02/25/25
06:59 06:59 06:59 06:59
Intake Total 500 / 500
Balance 500 / 500
Physical Exam
Physical Exam
AAOx3, MAEE 5/5
RRR S1 S2 no murmurs
CTA bilat, non labored
left ACW aquacel dressing CDI, no ht/bleeding
soft ab, + bs
bilat extremities w/palpable distal pulses, no edema
[2025-02-24] MEDS: CRESTOR 40 MG PO (08:33)
[2025-02-24] MEDS: FLUSH (NSS) 1 FLUSH IV (08:33)
[2025-02-24] MEDS: NORVASC 2.5 MG PO (08:33)
[2025-02-24] MEDS: PACERONE 200 MG PO (08:33)
[2025-02-24] MEDS: LEXAPRO 10 MG PO (08:33)
--- NOTE | 2025-02-24 09:19 | PTCARENOTE ---
The patient is aaox3. Her vital signs are stable. 100% A-pacing is noted on the monitor. Her left chest wall dressing is intact. I removed her pressure dressing. Some scant old drainage is noted on the antibacterial dressing and I marked it. She has
no complaints of pain. I reviewed her activity restrictions with her for the next month in addition to wound care.
--- NOTE | 2025-02-24 10:19 | W.DS.TRANS ---
DC Summary - Director Public Policy
-
Discharge Instructions:
Sleep Apnea Risk Intermediate
Discharge Diagnosis/Procedures Pacemaker implant
Diet Low Cholesterol
Driving Restrictions No driving
Bathing Restrictions OK to Shower
Instructions:
Stand-Alone Forms: DC Inst - Implanted Device
Changes to Home Medications: Yes
Discharge Medications:
DC Medications w/original date entered in [facility]
aspirin 81 mg tablet,delayed release 81 mg PO QPM Blood Clot Prevention/Tx 06/13/17
losartan 25 mg tablet 25 mg PO QPM Blood Pressure 06/13/17
rosuvastatin 40 mg tablet (Crestor) 40 mg PO DAILY High Cholesterol 06/13/17
nitroglycerin 0.4 mg sublingual tablet 0.4 mg sublingual [id number] PRN chest pain 07/24/19
vit C 250 mg-vit E 90 mg-zinc 40 mg-copper 1 un-[id number]-[id number] capsule (PreserVision AREDS-2) 1 ea PO BID Supplement 07/24/19
escitalopram oxalate 10 mg tablet 10 mg PO DAILY Mental Health/Anxiety 12/16/24
polyethylene glycol 3350 17 gram oral powder packet (Miralax) 17 g PO DAILYPRN PRN constipation 12/16/24
acetaminophen 325 mg tablet 650 mg (2 x 325 mg) PO Q6HPRN PRN mild pain #30 tabs 01/05/25
amlodipine 2.5 mg tablet 2.5 mg PO DAILY Blood pressure 30 days #30 tabs 01/05/25
apixaban 5 mg tablet (Eliquis) 5 mg PO BID Blood Clot Prevention/Tx/atrial fibrillation 30 days #60 tabs 01/05/25
diclofenac sodium 1 % topical gel 1 g topical QID PRN right shoulder pain 30 days #25 grams 01/05/25
amiodarone 200 mg tablet 200 mg PO BID #1 tab 02/24/25
Home Medication Changes
NEW: amiodarone
Pending Results: No
[2025-02-24 10:44] VITALS: BP 110/60
--- NOTE | 2025-02-24 17:03 | CM ---
pt is prev indep, lives in a 2 story home with no steps to enter. planis for dc to home today, no dc planning needs.
== END 2025-02-24 11:57 | disposition home or self-care (01) ==
LOC: CATH 09:45
PROVIDERS: Nurse Practitioner; ATTENDING PHYSICIAN Internal Medicine Cardiovascular Disease; FAMILY PHYSICIAN Family Medicine
DX: I49.5 Sick sinus syndrome (principal); Z79.82 Long term (current) use of aspirin; Z79.899 Other long term (current) drug therapy; I48.0 Paroxysmal atrial fibrillation; I25.10 Atherosclerotic heart disease of native coronary artery without angina pectoris; Z95.1 Presence of aortocoronary bypass graft; I10 Essential (primary) hypertension; I69.820 Aphasia following other cerebrovascular disease; I69.898 Other sequelae of other cerebrovascular disease; R26.89 Other abnormalities of gait and mobility; I07.1 Rheumatic tricuspid insufficiency; E78.5 Hyperlipidemia, unspecified; J45.909 Unspecified asthma, uncomplicated; K27.9 Peptic ulcer, site unspecified, unspecified as acute or chronic, without hemorrhage or perforation; M06.9 Rheumatoid arthritis, unspecified; H35.30 Unspecified macular degeneration; Z79.01 Long term (current) use of anticoagulants; Z91.030 Bee allergy status; Z88.0 Allergy status to penicillin; Z88.8 Allergy status to other drugs, medicaments and biological substances
CPT/HCPCS: 33208; 71045; 80048; 83735; 85027; 93005; C1769; C1785; C1887; C1892; C1898; Q9967

== ENCOUNTER 2025-03-17 10:46 | Outpatient (RCR) | payer MEDICARE, OTHER, SELFPAY | END 2025-03-17 23:59 | disposition home or self-care (01) | LOC: RST 10:46 | PROVIDERS: ATTENDING PHYSICIAN Physical Medicine & Rehabilitation; FAMILY PHYSICIAN Family Medicine | DX: I69.318 Other symptoms and signs involving cognitive functions following cerebral infarction (principal); I69.321 Dysphasia following cerebral infarction; R26.81 Unsteadiness on feet; M54.50 Low back pain, unspecified; M25.511 Pain in right shoulder; Z73.6 Limitation of activities due to disability; I69.351 Hemiplegia and hemiparesis following cerebral infarction affecting right dominant side | CPT/HCPCS: 97110; 97112; 97116; 97164; 97168; 97530; 97535 ==

== ENCOUNTER → 2025-06-12 10:31 | Outpatient (REF) | payer MEDICARE, OTHER, SELFPAY | LOC: RAD 10:31 | PROVIDERS: ATTENDING PHYSICIAN Family Medicine | DX: M25.562 Pain in left knee (principal); M79.605 Pain in left leg; G47.09 Other insomnia; G89.29 Other chronic pain | CPT/HCPCS: 72110; 73564 ==

== ENCOUNTER → 2025-06-25 15:17 | Outpatient (REF) | payer MEDICARE, OTHER, SELFPAY | LOC: RAD 15:17 | PROVIDERS: ATTENDING PHYSICIAN Family Medicine | DX: G47.09 Other insomnia (principal); G89.29 Other chronic pain; M79.605 Pain in left leg; M25.562 Pain in left knee | CPT/HCPCS: 93925 ==

== ENCOUNTER 2025-08-18 09:53 | Outpatient (RCR) | payer MEDICARE, OTHER, SELFPAY | END 2025-08-18 23:59 | disposition home or self-care (01) | LOC: RPT 09:53 | PROVIDERS: ATTENDING PHYSICIAN Family Medicine | DX: M54.16 Radiculopathy, lumbar region (principal); M62.81 Muscle weakness (generalized); Z73.6 Limitation of activities due to disability; R26.89 Other abnormalities of gait and mobility; R32 Unspecified urinary incontinence | CPT/HCPCS: 97110; 97112; 97162 ==

== ENCOUNTER 2025-08-20 13:05 | Outpatient (RCR) | payer MEDICARE, OTHER, SELFPAY | END 2025-08-24 23:59 | disposition home or self-care (01) | LOC: RPT 13:05 | PROVIDERS: ATTENDING PHYSICIAN Family Medicine | DX: M54.16 Radiculopathy, lumbar region (principal); Z73.6 Limitation of activities due to disability; R26.89 Other abnormalities of gait and mobility; M62.81 Muscle weakness (generalized); R32 Unspecified urinary incontinence | CPT/HCPCS: 97112; 97530 ==

== ENCOUNTER 2025-08-21 07:24 | Emergency (ER) | payer MEDICARE, OTHER, SELFPAY ==
[2025-08-21 07:28] VITALS: BP 154/78
--- NOTE | 2025-08-21 07:55 | ED.GENMED ---
History of Present Illness
General
Chief Complaint: Fall
Source: patient
Exam Limitations: none
Time Seen by Provider: 08/21/25 07:37
Nursing documentation reviewed up to this point in time: agreed with
History of Present Illness
History of Present Illness:
85-year-old female presents to the ER for evaluation of fall. Patient reports she was in her kitchen yesterday morning and reports a mechanical fall hitting her left elbow and left knee on the ground. She denies hitting her head. She denies loss
of consciousness. Denies any neck pain headache. She is on Eliquis no nausea vomiting neck pain. She complains of worsening bruising /discomfort overnight to her lower leg area. She has mild discomfort to left elbow and bruising.
Past History
Past History
ED Past Medical History: Asthma, CAD, HTN, Hypercholesterolemia, Valvular disease and Other (Urinary incontinence)
ED Past Surgical History: Appendectomy, Cardiac, , Tonsilectomy and Other
Social History
Tobacco: Non-smoker
Alcohol: Occasional
Drug: None
Personal:
Living: alone
Employment: Retired
Family History
Family History: Other
Phy Exam
General Physical Exam
General Presentation: no apparent distress
General age: appears stated age
General Skin: warm and dry
General Habitus: normal
General Mental: alert
General Hydration: appears well hydrated
Neurological Exam
Neurological Exam: alert and oriented x3
Musculoskeletal Exam
Musculoskeletal Exam: other (Left lower extremity with strong pulses skin ecchymosis to knee and anterior tib-fib region, compartments are soft normal sensation; strong pulses. Full flexion extension of the knee without difficulty. Left elbow with
mild ecchymosis no obvious swelling full range of motion and bony tenderness)
Skin Exam
Skin Exam: normal color and warm/dry
Psychiatric Exam
Psychiatric Exam: normal mood/affect
Course
Orders/Labs/Results
Orders:
Orders
10/03/25 08:00
Elbow, 3 view, Left [CR Elbow - Left Min 3 Views ] Urgent
Comment:
Reason For Exam: trauma
08/21/25 08:01
Knee, Left 4 or More Views [CR Knee - Left 4 Or More View*] Urgent
Comment:
Reason For Exam: trauma
Tib/Fib, Left 2 View [CR Leg Tibia/fibula Left 2 Vw] Urgent
Comment:
Reason For Exam: trauma
08/21/25 09:13
Acetaminophen [Tylenol] 650 mg PO NOW STA
Vital Signs
Initial and Last Documented VS:
Initial Vital Signs
Temp Pulse Resp BP Pulse Ox
98.0 F 62 18 154/78 96
08/21/25 07:28 08/21/25 07:28 08/21/25 07:28 08/21/25 07:28 08/21/25 07:28
Last Documented Vital Signs
Temp Pulse Resp BP Pulse Ox
98.0 F 62 16 154/78 96
08/21/25 07:28 08/21/25 07:28 08/21/25 08:00 08/21/25 07:28 08/21/25 07:57
MDM/Problems Addressed
MDM/Problems Addressed:
Symptoms are consistent with contusion. Patient is on Eliquis and has ecchymosis and swelling to the calf however compartments are soft and no evidence of compartment syndrome at this time she has no weakness in leg no numbness tingling. She is
comfortable. X-rays are negative. She is able to bear weight with her cane and is well-appearing stable for discharge home. She was educated on return precautions.
*Radiology
Radiology exam reviewed: radiology read reviewed
*Pulse Oximetry
SaO2: 96
Oxygen Mode of Delivery: Room air
Patient hypoxic: no
*Critical Care Note
Total Time (30-74mins, 75-104mins- exclusive of procedures): Not Applicable
ED Attending Note
-
Portions of this chart may have been created with voice recognition software.� Occasional wrong word or��sound alike� substitutions may have occurred due to the inherent limitations of voice recognition software.
Discharge Plan
Departure
Patient Disposition: Home (Routine Discharge)
Date of Disposition: 08/21/25
Time of Disposition: 09:47
Patient with high blood pressure during this ER visit?: Yes
Condition: Fair
Covid-19: Not Applicable
Discharge Problem:
Contusion
Instructions: Contusion (DC), BLOOD PRESSURE
Prescriptions:
No Action
aspirin 81 MG tablet,delayed release (DR/EC)
81 mg PO QPM
losartan 25 MG tablet
25 mg PO QPM
rosuvastatin [Crestor] 40 MG tablet
40 mg PO DAILY
nitroglycerin 0.4 MG tablet, sublingual
0.4 mg sublingual [id number] PRN (Reason: chest pain)
PreserVision AREDS-2 1 EACH capsule
1 ea PO BID
polyethylene glycol 3350 [Miralax] 17 gram Powder In Packet
17 g PO DAILYPRN PRN (Reason: constipation)
escitalopram oxalate 10 mg tablet
10 mg PO DAILY
amiodarone 200 mg Tablet
200 mg PO BID Qty: 1 0RF
amlodipine 2.5 mg Tablet
2.5 mg PO DAILY 30 Days Qty: 30 0RF
diclofenac sodium 1 % Gel
1 g topical QID PRN (Reason: right shoulder pain) 30 Days Qty: 25 0RF
acetaminophen 325 mg Tablet
650 mg PO Q6HPRN PRN (Reason: mild pain) Qty: 30 0RF
Eliquis 5 mg tablet
5 mg PO BID 30 Days Qty: 60 0RF
Referrals:
Nancy Quach MD [Family Provider, Family Practice]
Activity Restrictions/Additional Instructions:
Ice the affected area for the next 24 hours 20 minutes at a time several times a day and keep elevated as much as possible. Follow-up with family doctor in 2 days for reevaluation. Return however to the ER for any worsening of symptoms of
increased pain swelling numbness tingling weakness or any further concerns
Interventions
Interventions:
*Risk Screen - Suicide Last Done: 08/21/25 07:28
*General Assessment Last Done: 08/21/25 07:28
*Neglect/Abuse Screening Last Done: 08/21/25 07:39
*ED- Fall Risk Assessment Last Done: 08/21/25 07:39
*ED COVID-19 Vaccine History Last Done: 08/21/25 07:39
*ED Influenza Vaccine History Last Done: 08/21/25 07:39
ED-Musculoskeletal Assessment Last Done: 08/21/25 07:39
ED- Neurological Assessment Last Done: 08/21/25 07:39
ED-Skin Assessment Last Done: 08/21/25 07:39
Discharge Date and Time
Print Language: RWANDAN
[2025-08-21] MEDS: TYLENOL 650 MG PO (09:17)
[2025-08-21 10:05] VITALS: BP 148/87
== END 2025-08-21 10:05 | disposition home or self-care (01) ==
LOC: EMR 07:24
PROVIDERS: EMERGENCY PHYSICIAN Emergency Medicine; FAMILY PHYSICIAN Family Medicine
DX: S80.12XA Contusion of left lower leg, initial encounter (principal); W19.XXXA Unspecified fall, initial encounter; Y92.000 Kitchen of unspecified non-institutional (private) residence as the place of occurrence of the external cause; J45.909 Unspecified asthma, uncomplicated; I25.10 Atherosclerotic heart disease of native coronary artery without angina pectoris; I10 Essential (primary) hypertension; E78.00 Pure hypercholesterolemia, unspecified; I38 Endocarditis, valve unspecified; Z79.01 Long term (current) use of anticoagulants; Z90.49 Acquired absence of other specified parts of digestive tract
CPT/HCPCS: 99283; 73080; 73564; 73590

== ENCOUNTER → 2025-08-26 10:13 | Outpatient (REF) | payer MEDICARE, OTHER, SELFPAY ==
[2025-08-26 11:05] LABS: Hematocrit 33.1 % (37.0-47.0); Hemoglobin 10.5 g/dL (12.0-16.0); Mean Corp Hgb Conc. 31.7 g/dL (33.0-37.0); Mean Corpuscular Volume 90.4 fL (81.0-99.0); Nucleated Red Blood Cells % 0 %; Platelet Count 194 10^3/uL (130-400); Red Cell Dist. Width 15.8 % (11.5-14.5)
[2025-08-26 11:32] LABS: ALT (SGPT) 18 U/L (0-35); AST (SGOT) 27 U/L (14-36); Albumin 4.5 g/dl (3.5-5.0); Alkaline Phosphatase 85 U/L (38-126); Blood Urea Nitrogen 28 mg/dl (7-17); Calcium 9.4 mg/dl (8.4-10.2); Carbon Dioxide 27 mmol/L (22-30); Chloride 107 mmol/L (98-107); Glucose 102 mg/dl (70-99); HDL Cholesterol 99 mg/dl; LDL Cholesterol, Calculated 39 mg/dl; Potassium 5.1 mmol/L (3.5-5.1); Sodium 140 mmol/L (135-145); Total Protein 7.2 g/dl (6.3-8.2); Very Low Density Lipoprotein 13 mg/dl (0-30); eGFR 39.80
== END ==
LOC: REG 10:13
PROVIDERS: ATTENDING PHYSICIAN Family Medicine
DX: I10 Essential (primary) hypertension (principal); I25.10 Atherosclerotic heart disease of native coronary artery without angina pectoris; E78.5 Hyperlipidemia, unspecified
CPT/HCPCS: 36415; 80053; 80061; 85025

== ENCOUNTER → 2025-09-16 09:50 | Outpatient (REF) | payer MEDICARE, OTHER, SELFPAY ==
[2025-09-16 10:32] LABS: Hematocrit 32.3 % (37.0-47.0); Hemoglobin 10.3 g/dL (12.0-16.0); Mean Corp Hgb Conc. 31.9 g/dL (33.0-37.0); Mean Corpuscular Volume 92.0 fL (81.0-99.0); Nucleated Red Blood Cells % 0.4 %; Platelet Count 221 10^3/uL (130-400); Red Cell Dist. Width 15.8 % (11.5-14.5); Reticulocyte Count 2.0 % (0.4-2.8)
== END ==
LOC: REG 09:50
PROVIDERS: FAMILY PHYSICIAN Family Medicine
DX: D64.9 Anemia, unspecified (principal); N17.9 Acute kidney failure, unspecified
CPT/HCPCS: 36415; 84155; 84165; 85025; 85045

== ENCOUNTER 2025-09-18 06:59 | Day surgery (SDC) | payer MEDICARE, OTHER, SELFPAY | END 2025-09-18 09:52 | disposition home or self-care (01) | LOC: CATH 06:59 | PROVIDERS: ATTENDING PHYSICIAN Internal Medicine Cardiovascular Disease; FAMILY PHYSICIAN Family Medicine; OTHER PHYSICIAN Internal Medicine Cardiovascular Disease | DX: I48.0 Paroxysmal atrial fibrillation (principal); I08.3 Combined rheumatic disorders of mitral, aortic and tricuspid valves; I70.0 Atherosclerosis of aorta; I08.8 Other rheumatic multiple valve diseases; I25.2 Old myocardial infarction; I25.10 Atherosclerotic heart disease of native coronary artery without angina pectoris; Z79.82 Long term (current) use of aspirin; Z79.01 Long term (current) use of anticoagulants; Z79.899 Other long term (current) drug therapy; I49.5 Sick sinus syndrome; E78.5 Hyperlipidemia, unspecified; R29.6 Repeated falls; Z86.73 Personal history of transient ischemic attack (TIA), and cerebral infarction without residual deficits | CPT/HCPCS: 93312; 93320; 93325 ==